=== PATIENT | female | born 1935 | race Hispanic/Latino ===

== ENCOUNTER 2017-02-09 20:54 | Observation (INO) | payer MEDICARE ==
--- NOTE | 2017-02-09 21:26 | C.PDOC ---
History Of Present Illness Camilo Perkins is an 81 year old female, with a past medical history of insulin dependent diabetes, who was brought to the emergency department by EMS after patient was feeling weak and dizzy onset prior to arrival. Patient reports not taking insulin, she was about to eat when she began feeling lightheaded and dizzy. Nephew was at her side. When EMS arrived her blood sugar was 36 mg/dl. She was given 1 amp of D50, upon arrival her blood sugar was 174 mg/dl. She was alert and oriented, and she remembers the event. She denies any chest pain, palpitations, visual changes, nausea or vomit. No further medical complaints. PMD: Simeon Pryor Time Seen by Provider: 02/09/17 21:25 Chief Complaint (Nursing): Medical Clearance History Per: Patient History/Exam Limitations: no limitations Onset/Duration Of Symptoms: Hrs (prior to arrival) Current Symptoms Are (Timing): Better Pain Scale Rating Of: 0 Past Medical History Reviewed: Historical Data, Nursing Documentation, Vital Signs Vital Signs: Last Vital Signs Temp 97.8 F 02/09/17 22:44 Pulse 65 02/10/17 01:30 Resp 15 02/10/17 01:30 BP 156/62 H 02/10/17 01:30 Pulse Ox 100 02/10/17 01:30 - Medical History PMH: Diabetes, Deep Vein Thrombosis, HTN, Hypercholesterolemia Denies: Chronic Kidney Disease Surgical History: CABG (10 yrs ago), Coronary Stent - [facility] Procedures VACCINATION NEC (08/11/13) Family History: States: Unknown Family Hx - Social History Hx Tobacco Use: No Hx Alcohol Use: No Hx Substance Use: No - Immunization History Hx Tetanus Toxoid Vaccination: No Hx Influenza Vaccination: Yes Hx Pneumococcal Vaccination: No Review Of Systems Eyes: Negative for: Vision Change Cardiovascular: Positive for: Light Headedness. Negative for: Chest Pain, Palpitations Respiratory: Negative for: Shortness of Breath Gastrointestinal: Negative for: Nausea, Vomiting Neurological: Positive for: Dizziness Physical Exam - Physical Exam Appears: Non-toxic Skin: Warm, Dry Head: Normacephalic Chest: Symmetrical Cardiovascular: Rhythm Regular Respiratory: No Rales, No Rhonchi, No Wheezing Gastrointestinal/Abdominal: Soft, Distention, Hernia (large reducible umbilical) Extremity: No Pedal Edema Neurological/Psych: Oriented x3, Normal Speech ED Course And Treatment - Laboratory Results Result Diagrams: 02/09/17 21:47 02/09/17 21:47 ECG: Interpreted By Me, Viewed By Me (60) ECG Rhythm: Sinus Rhythm (60), L BBB, Nonspecific Changes O2 Sat by Pulse Oximetry: 99 (RA) Pulse Ox Interpretation: Normal - Radiology CXR: Interpreted by Me, Viewed By Me Progress Note: Plan: --VBG Shock panel. --Comp Metabolic Panel. --Ketone, serum (Qual). --CBC w/ differential. --Urinalysis Disposition Discussed With Dr.: Juwan Crawford Comment: accepted the pt on his service and took over the care at 1:50 AM Doctor Will See Patient In The: Hospital Counseled Patient/Family Regarding: Studies Performed, Diagnosis - Disposition Disposition: HOSPITALIZED Disposition Time: 21:25 Condition: FAIR Forms: [employer] (Armenian) - POA Present On Arrival: Poor Glycemic Control - Clinical Impression Clinical Impression: Hypoglycemia - Scribe Statement Robert Pagan Provider Attestation: All medical record entries made by the Scribe were at my direction and personally dictated by me. I have reviewed the chart and agree that the record accurately reflects my personal performance of the history, physical exam, medical decision making, and the department course for this patient. I have also personally directed, reviewed, and agree with the discharge instructions and disposition. Decision To Admit - Pt Status Changed To: Hospital Disposition Of: Observation - . Bed Request Type: Regular Admitting Physician: Juwan Crawford Patient Diagnosis: Hypoglycemia
[2017-02-09 21:51] LABS: BASO # 0.1 K/uL (0.0-0.2); BASO % 0.8 % (0.0-2.0); EOS # 0.3 K/uL (0.0-0.7); EOS % 2.9 % (0.0-4.0); HEMATOCRIT 36.3 % (34.0-47.0); LYMPH # 1.9 K/uL (1.0-4.3); LYMPH % 21.8 % (20.0-40.0); MEAN CELL VOLUME 79.1 fL (81.0-99.0); MEAN CORPUSCULAR HGB CONC 32.9 g/dL (33.0-37.0); MONO # 0.7 K/uL (0.0-0.8); MONO % 8.4 % (0.0-10.0); RED CELL DISTRIBUTION WIDTH 14.4 % (11.5-14.5)
[2017-02-09 21:54] LABS: WHITE BLOOD COUNT 8.8 K/uL (4.8-10.8)
[2017-02-09 22:04] LABS: ALKALINE PHOSPHATASE 66 U/L (38-126); ALT/SGPT 45 U/L (9-52); AST/SGOT 45 U/L (14-36); BILIRUBIN,TOTAL 0.7 mg/dL (0.2-1.3); BLOOD UREA NITROGEN 24 mg/dL (7-17); CALCIUM 9.3 mg/dl (8.6-10.4); CARBON DIOXIDE 30 mmol/L (22-30); CHLORIDE 99 mmol/L (98-107); GFR AFRICAN-AMERICAN 40; GLUCOSE,RANDOM 164 mg/dL (65-105); POTASSIUM 3.6 mmol/L (3.6-5.2); SODIUM 139 mmol/L (132-148); TOTAL PROTEIN 8.6 g/dL (6.3-8.3)
[2017-02-09 22:07] LABS: VENOUS BLOOD GAS BASE EXCESS 4.4 mmol/L (0.0-2.0); VENOUS BLOOD GAS PCO2 52 mmHg (40-60); VENOUS BLOOD PH 7.38 (7.32-7.43)
[2017-02-09 22:09] LABS: RBC URINE 3 /hpf (0-3); URINE BACTERIA OCC (<OCC); URINE BILIRUBIN NEGATIVE (NEGATIVE); URINE BLOOD NEGATIVE (NEGATIVE); URINE COLOR Yellow (YELLOW); URINE GLUCOSE (UA) 3+ mg/dL (Normal); URINE KETONE NEGATIVE (NEGATIVE); URINE LEUKOCYTE ESTERASE 2+ Leu/uL (Negative); URINE PROTEIN 1+ mg/dL (NEGATIVE); URINE UROBILINOGEN NORMAL mg/dL (0.2-1.0); WBC URINE 12 /hpf (0-5)
[2017-02-10] MEDS ORDERED: Bacitracin Ointment 30 GM TUBE TOP STA (00:10)
[2017-02-10] MEDS ORDERED: Bacitracin 500 Units/gm Oint Foilpak UD ONE (00:11)
[2017-02-10 08:21] VITALS: RESP 20
[2017-02-10] MEDS: Enoxaparin 30 mg Syringe SC SCH (10:50)
--- NOTE | 2017-02-10 16:43 | CP.PCM.HP ---
Past Patient History - Infectious Disease Hx of Infectious Diseases: None - Past Medical History & Family History Past Medical History?: Yes - Past Social History Smoking Status: Never Smoked - CARDIAC Hx Hypercholesterolemia: Yes Hx Hypertension: Yes - PULMONARY Hx Respiratory Disorders: Yes Other/Comment: sinusitis - NEUROLOGICAL Hx Neurological Disorder: Yes Other/Comment: states has had weakness to left side 'for a month and a half' - HEENT Hx HEENT Problems: Yes Hx Cataracts: Yes - RENAL Hx Chronic Kidney Disease: No - ENDOCRINE/METABOLIC Hx Diabetes Mellitus Type 1: Yes Hx Diabetes Mellitus Type 2: Yes - HEMATOLOGICAL/ONCOLOGICAL Hx Blood Disorders: No - INTEGUMENTARY Hx Dermatological Problems: Yes - MUSCULOSKELETAL/RHEUMATOLOGICAL Hx Musculoskeletal Disorders: Yes Hx Falls: Yes - GASTROINTESTINAL Hx Gastrointestinal Disorders: No - GENITOURINARY/GYNECOLOGICAL Hx Genitourinary Disorders: No - PSYCHIATRIC Hx Substance Use: No - SURGICAL HISTORY Hx Coronary Artery Bypass Graft: Yes (10 yrs ago) Hx Coronary Stent: Yes - ANESTHESIA Hx Anesthesia: Yes Hx Anesthesia Reactions: No Hx Malignant Hyperthermia: No Meds Allergies/Adverse Reactions: Allergies Allergy/AdvReac Type Severity Reaction Status Date / Time Sulfa (Sulfonamide Allergy RASH Verified 02/09/17 21:18 Antibiotics) Physical Exam - Constitutional Appears: Well - Head Exam Head Exam: ATRAUMATIC, NORMAL INSPECTION, NORMOCEPHALIC - Eye Exam Eye Exam: EOMI, Normal appearance, PERRL Pupil Exam: NORMAL ACCOMODATION, PERRL - ENT Exam ENT Exam: Mucous Membranes Moist, Normal Exam - Neck Exam Neck exam: Positive for: Normal Inspection - Respiratory Exam Respiratory Exam: Decreased Breath Sounds - Cardiovascular Exam Cardiovascular Exam: REGULAR RHYTHM, +S1, +S2 - GI/Abdominal Exam GI & Abdominal Exam: Diminished Bowel Sounds, Soft - Rectal Exam Rectal Exam: Deferred Results - Vital Signs Recent Vital Signs: Last Vital Signs Temp 98.0 F 02/10/17 08:19 Pulse 70 02/10/17 08:19 Resp 20 02/10/17 08:19 BP 113/61 02/10/17 10:51 Pulse Ox 98 02/10/17 08:19 - Labs Result Diagrams: 02/09/17 21:47 02/09/17 21:47 Labs: Laboratory Results - last 24 hr 02/09/17 02/09/17 02/09/17 21:05 21:47 21:47 WBC 8.8 D RBC 4.60 Hgb 12.0 Hct 36.3 MCV 79.1 L MCH 26.0 L MCHC 32.9 L RDW 14.4 Plt Count 215 MPV 8.0 Neut % (Auto) 66.1 Lymph % (Auto) 21.8 [place] % (Auto) 8.4 Eos % (Auto) 2.9 Baso % (Auto) 0.8 Neut # 5.8 Lymph # 1.9 [place] # 0.7 Eos # 0.3 Baso # 0.1 pO2 VBG pH VBG pCO2 VBG HCO3 VBG Total CO2 VBG O2 Sat (Calc) VBG Base Excess VBG Potassium Glucose Lactate Sodium 139 Potassium 3.6 Chloride 99 Carbon Dioxide 30 Anion Gap 14 BUN 24 H Creatinine 1.5 H Est GFR ( Amer) 40 Est GFR (Non-Af Amer) 33 POC Glucose (mg/dL) 174 H Random Glucose 164 H Calcium 9.3 Total Bilirubin 0.7 AST 45 H ALT 45 Alkaline Phosphatase 66 Total Protein 8.6 H Albumin 4.3 Globulin 4.3 H Albumin/Globulin Ratio 1.0 Venous Blood Potassium Urine Color Urine Clarity Urine pH Ur Specific Nichols Urine Protein Urine Glucose (UA) Urine Ketones Urine Blood Urine Nitrate Urine Bilirubin Urine Urobilinogen Ur Leukocyte Esterase Urine WBC (Auto) Urine RBC (Auto) Ur Squamous Epith Cells Urine Bacteria Serum Ketones Negative 02/09/17 02/09/17 02/09/17 22:00 22:00 23:13 WBC RBC Hgb Hct MCV MCH MCHC RDW Plt Count MPV Neut % (Auto) Lymph % (Auto) [place] % (Auto) Eos % (Auto) Baso % (Auto) Neut # Lymph # [place] # Eos # Baso # pO2 19 L VBG pH 7.38 VBG pCO2 52 VBG HCO3 26.5 VBG Total CO2 32.4 H VBG O2 Sat (Calc) 29.5 L VBG Base Excess 4.4 H VBG Potassium 3.7 Glucose 152 H Lactate 0.9 Sodium 138.0 Potassium Chloride 103.0 Carbon Dioxide Anion Gap BUN Creatinine Est GFR ( Amer) Est GFR (Non-Af Amer) POC Glucose (mg/dL) 133 H Random Glucose Calcium Total Bilirubin AST ALT Alkaline Phosphatase Total Protein Albumin Globulin Albumin/Globulin Ratio Venous Blood Potassium 3.7 Urine Color Yellow Urine Clarity Hazy Urine pH 6.0 Ur Specific Nichols 1.005 Urine Protein 1+ H Urine Glucose (UA) 3+ H Urine Ketones Negative Urine Blood Negative Urine Nitrate Negative Urine Bilirubin Negative Urine Urobilinogen Normal Ur Leukocyte Esterase 2+ H Urine WBC (Auto) 12 H Urine RBC (Auto) 3 Ur Squamous Epith Cells 4 Urine Bacteria Occ H Serum Ketones 02/10/17 02/10/17 02/10/17 00:59 05:45 07:20 WBC RBC Hgb Hct MCV MCH MCHC RDW Plt Count MPV Neut % (Auto) Lymph % (Auto) [place] % (Auto) Eos % (Auto) Baso % (Auto) Neut # Lymph # [place] # Eos # Baso # pO2 VBG pH VBG pCO2 VBG HCO3 VBG Total CO2 VBG O2 Sat (Calc) VBG Base Excess VBG Potassium Glucose Lactate Sodium Potassium Chloride Carbon Dioxide Anion Gap BUN Creatinine Est GFR ( Amer) Est GFR (Non-Af Amer) POC Glucose (mg/dL) 110 197 H 175 H Random Glucose Calcium Total Bilirubin AST ALT Alkaline Phosphatase Total Protein Albumin Globulin Albumin/Globulin Ratio Venous Blood Potassium Urine Color Urine Clarity Urine pH Ur Specific Nichols Urine Protein Urine Glucose (UA) Urine Ketones Urine Blood Urine Nitrate Urine Bilirubin Urine Urobilinogen Ur Leukocyte Esterase Urine WBC (Auto) Urine RBC (Auto) Ur Squamous Epith Cells Urine Bacteria Serum Ketones 02/10/17 11:14 WBC RBC Hgb Hct MCV MCH MCHC RDW Plt Count MPV Neut % (Auto) Lymph % (Auto) [place] % (Auto) Eos % (Auto) Baso % (Auto) Neut # Lymph # [place] # Eos # Baso # pO2 VBG pH VBG pCO2 VBG HCO3 VBG Total CO2 VBG O2 Sat (Calc) VBG Base Excess VBG Potassium Glucose Lactate Sodium Potassium Chloride Carbon Dioxide Anion Gap BUN Creatinine Est GFR ( Amer) Est GFR (Non-Af Amer) POC Glucose (mg/dL) 183 H Random Glucose Calcium Total Bilirubin AST ALT Alkaline Phosphatase Total Protein Albumin Globulin Albumin/Globulin Ratio Venous Blood Potassium Urine Color Urine Clarity Urine pH Ur Specific Nichols Urine Protein Urine Glucose (UA) Urine Ketones Urine Blood Urine Nitrate Urine Bilirubin Urine Urobilinogen Ur Leukocyte Esterase Urine WBC (Auto) Urine RBC (Auto) Ur Squamous Epith Cells Urine Bacteria Serum Ketones
[2017-02-11 02:06] VITALS: TEMP 98
[2017-02-11 08:19] VITALS: BP 127/67; PULSE 78; O2SAT 98
[2017-02-11] MEDS: Enoxaparin 30 mg Syringe SC SCH (10:48)
--- NOTE | 2017-02-11 11:31 | CP.PCM.PN ---
Subjective - Date & Time of Evaluation Date of Evaluation: 02/11/17 Time of Evaluation: 11:30 - Subjective Subjective: PGY-[address] Crawford's service: Pt seen and examined at bedside. Nursing reports no acute events overnight. She reports feeling much better after being given D50 in the ED. She has been tolerating diet, and has no current complaints. She denies return of lightheadedness/dizziness. Patient sees Dr. Velasquez as outpatient and will follow up within one week's time. Patient is an 81 year old female, PMHx of insulin dependent diabetes, who was brought to the ED by EMS after patient was feeling weak and dizzy onset prior to arrival. Patient reports taking insulin late that AM because she overslept. She states she was about to eat when she began feeling lightheaded and dizzy. Family called 911. EMS at scene report blood sugar was 36 mg/dl. Patient has full memory of event and denies loss of consciousness, syncopal episode. She denies any chest pain, palpitations, visual changes, nausea or vomit. Objective - Vital Signs/Intake and Output Vital Signs (last 24 hours): Temp Pulse Resp BP Pulse Ox 98 F 78 20 127/67 98 02/11/17 08:18 02/11/17 08:18 02/11/17 08:18 02/11/17 10:48 02/11/17 08:18 Intake and Output: 02/11/17 02/11/17 06:59 18:59 Intake Total 200 Balance 200 - Medications Medications: Current Medications Amlodipine Besylate (Norvasc) 2.5 mg PO DAILY [facility] Last Admin: 02/11/17 10:49 Dose: Not Given Clopidogrel Bisulfate (Plavix) 75 mg PO DAILY [facility] Last Admin: 02/11/17 10:47 Dose: 75 mg Enoxaparin Sodium (Lovenox) 30 mg SC DAILY [facility] Last Admin: 02/11/17 10:48 Dose: 30 mg Famotidine (Pepcid) 20 mg PO DAILY [facility] Last Admin: 02/11/17 10:47 Dose: 20 mg Furosemide (Lasix) 40 mg PO DAILY [facility] Last Admin: 02/11/17 10:48 Dose: 40 mg Losartan Potassium (Cozaar) 100 mg PO DAILY [facility] Last Admin: 02/11/17 10:47 Dose: 100 mg Rosuvastatin Calcium (Crestor) 10 mg PO HS [facility] Last Admin: 02/10/17 21:50 Dose: 10 mg - Labs Labs: 02/09/17 21:47 02/09/17 21:47 - Constitutional Appears: Non-toxic, No Acute Distress - Head Exam Head Exam: ATRAUMATIC, NORMOCEPHALIC - Eye Exam Eye Exam: EOMI, Normal appearance. absent: Scleral icterus Pupil Exam: PERRL - ENT Exam ENT Exam: Mucous Membranes Moist - Neck Exam Neck Exam: Full ROM - Respiratory Exam Respiratory Exam: Clear to Ausculation Bilateral, NORMAL BREATHING PATTERN - Cardiovascular Exam Cardiovascular Exam: REGULAR RHYTHM, +S1, +S2. absent: Murmur - GI/Abdominal Exam GI & Abdominal Exam: Soft, Normal Bowel Sounds. absent: Distended, Firm, Tenderness Additional comments: umbilical hernia (reducible, no evidence of obstruction/strangulation, etc) - Extremities Exam Extremities Exam: Normal Inspection. absent: Pedal Edema - Back Exam Back Exam: absent: CVA tenderness (L), CVA tenderness (R) - Neurological Exam Neurological Exam: Alert, Awake, CN II-XII Intact, Oriented x3 Neuro motor strength exam: Left Upper Extremity: 5, Right Upper Extremity: 5, Left Lower Extremity: 5, Right Lower Extremity: 5 - Psychiatric Exam Psychiatric exam: Normal Affect, Normal Mood - Skin Skin Exam: Normal Color, Warm Assessment and Plan - Assessment and Plan (Free Text) Plan: Hypoglycemic Event Observe on med/surg EMS BG 36 at scene EKG: ~65 bpm, NSR, LBBB Negative for ketones, Lactate WNL, No signs of sepsis Pt reported lightheadedness/dizziness, denies syncopal event/losing consciousness - she admitted taking insulin late that day IDDM Continue home meds: Humalog 70/30 25 units QAM, 20 units QPM Metformin 500mg PO BID Januvia 50mg PO Daily Will ask pt to keep log of home Glucometer readings to bring to PMD Abnormal UA UA: 2+ LE Pt denies symptoms Hx CAD CABG 10 yrs prior Continue Plavix 75mg PO daily Continue home Cresotr 10mg PO Daily HTN Continue home meds: Norvasc 2.5mg PO daily Cozaar 100mg PO Daily Lasix 40mg PO daily Disposition: Discharge pt home. Pt will keep logs and see Dr. Velasquez in her office. Shamar Johnson PGY-2 All medical management per Dr. Crawford
== END 2017-02-11 14:49 | disposition home or self-care (01) ==
LOC: C.ER 20:54 → C.3T 02-10 02:39
PROVIDERS: ADMIT Internal Medicine Nephrology; ATTEND Internal Medicine Nephrology
DX: E11.649 Type 2 diabetes mellitus with hypoglycemia without coma (principal); E78.00 Pure hypercholesterolemia, unspecified; I10 Essential (primary) hypertension; Z79.4 Long term (current) use of insulin; Z95.1 Presence of aortocoronary bypass graft
CPT/HCPCS: 80053; 81001; 82009; 82803; 82948; 85025; 97116; 97162; 99285; G0378; J1650

== ENCOUNTER 2017-03-12 17:27 | Inpatient (IN) | payer MEDICARE ==
--- NOTE | 2017-03-12 19:03 | C.PDOC ---
History Of Present Illness 81 y/o female with dm and cardiac condition, s/p cabg yrs ago, presents to ed with right leg pain s/p falling down 2 steps yesterday. pt denies any cp, dizziness or lightheadedness prior to fall and did not hit head, no loc with fall. pt unable to bear weight on right leg. pain to entire leg. Time Seen by Provider: 03/12/17 18:14 Chief Complaint (Nursing): Lower Extremity Problem/Injury History Per: Patient History/Exam Limitations: no limitations Onset/Duration Of Symptoms: Days (1) Current Symptoms Are (Timing): Worse Severity: Moderate - Knee Description Of Injury: Fell Currently Unable To: Bear Weight - Ankle/Foot Description Of Injury: Fell Currently Unable To: Bear Weight Past Medical History Reviewed: Historical Data, Nursing Documentation, Vital Signs Vital Signs: Last Vital Signs Temp 99.2 F 03/14/17 08:38 Pulse 90 03/14/17 08:38 Resp 20 03/14/17 08:38 BP 117/69 03/14/17 09:40 Pulse Ox 97 03/14/17 08:38 - Medical History PMH: CAD, Diabetes, Deep Vein Thrombosis, HTN, Hypercholesterolemia Denies: Chronic Kidney Disease Surgical History: CABG (10 yrs ago), Coronary Stent - [facility] Procedures VACCINATION NEC (08/11/13) Family History: States: Unknown Family Hx - Social History Hx Tobacco Use: No Hx Alcohol Use: No Hx Substance Use: No - Immunization History Hx Tetanus Toxoid Vaccination: No Hx Influenza Vaccination: Yes Hx Pneumococcal Vaccination: No Review Of Systems Constitutional: Negative for: Fever, Chills Cardiovascular: Negative for: Chest Pain Respiratory: Negative for: Cough Musculoskeletal: Positive for: Leg Pain (right), Other (right hip pain) Skin: Negative for: Bruising Neurological: Negative for: Weakness, Numbness Physical Exam - Physical Exam Appears: Non-toxic, Other (uncomfortable) Skin: Warm, Dry Head: Atraumatic, Normacephalic Neck: No Midline Cervical Tenderness, Supple Chest: No Deformity, No Tenderness Cardiovascular: Rhythm Regular, Murmur (holosystolic, best heard left sternal border) Respiratory: No Decreased Breath Sounds, No Wheezing Gastrointestinal/Abdominal: Soft, No Tenderness Back: Paraspinal Tenderness (right ) Extremity: No Normal ROM (dec rom at knee and hip), Tenderness (to right hip, thigh, knee), No Calf Tenderness, Capillary Refill (less than 2 seconds), Other (right leg not foreshortened nor externally rotated) Extremity: Left: Hips Non-Tender Pulses: Right Radial: Normal, Left Femoral: Normal, Right Femoral: Normal, Left Dorsalis Pedis: Normal Neurological/Psych: Oriented x3, Normal Speech, Normal Cognition, Normal Motor, Normal Sensation ED Course And Treatment - Laboratory Results Result Diagrams: 03/14/17 07:51 03/14/17 07:51 O2 Sat by Pulse Oximetry: 99 Medical Decision Making Medical Decision Making: pt unwilling to move righ tleg, c/o pain all over right leg when touched.no acute fractures noted n xray or hip/pelvis, femur, or ankle. labs drawn. will send pt for ls spine and knee xrays as well. discussed with Dr Pryor, will admit pt to her service for unable to ambulate. Disposition Discussed With : Simeon Pryor - Disposition Disposition: HOSPITALIZED Disposition Time: 22:31 Condition: STABLE - Clinical Impression Clinical Impression: Leg pain, right, Unable to ambulate, Fall (on) (from) other stairs and steps, initial encounter, Dehydration
[2017-03-12 21:32] LABS: BASO # 0.1 K/uL (0.0-0.2); BASO % 0.7 % (0.0-2.0); EOS % 0.1 % (0.0-4.0); HEMOGLOBIN 11.5 g/dL (11.0-16.0); LYMPH # 2.1 K/uL (1.0-4.3); LYMPH % 18.5 % (20.0-40.0); MEAN CELL VOLUME 78.8 fL (81.0-99.0); MEAN CORPUSCULAR HEMOGLOBIN 25.6 pg (27.0-31.0); MEAN CORPUSCULAR HGB CONC 32.5 g/dL (33.0-37.0); MEAN PLATELET VOLUME 8.3 fL (7.2-11.7); MONO # 1.5 K/uL (0.0-0.8); MONO % 12.9 % (0.0-10.0); NEUT # 7.7 K/uL (1.8-7.0); NEUT % 67.8 % (50.0-75.0); RBC 4.51 Mil/uL (3.80-5.20); RED CELL DISTRIBUTION WIDTH 14.4 % (11.5-14.5); WHITE BLOOD COUNT 11.4 K/uL (4.8-10.8)
[2017-03-12 21:46] LABS: ALB/GLOB RATIO 1.1 (1.0-2.1)
[2017-03-12 22:19] VITALS: RESP 20
[2017-03-12] MEDS ORDERED: Sodium Chloride 0.9% 1,000 ML IV SCH (22:30)
[2017-03-12] MEDS ORDERED: Sodium Chloride 0.9% 1,000 ML ONE (22:53)
[2017-03-13 08:13] LABS: BASO % 0.6 % (0.0-2.0); EOS % 0.4 % (0.0-4.0); HEMOGLOBIN 10.5 g/dL (11.0-16.0); LYMPH # 2.1 K/uL (1.0-4.3); LYMPH % 24.8 % (20.0-40.0); MEAN CELL VOLUME 79.1 fL (81.0-99.0); MEAN CORPUSCULAR HEMOGLOBIN 26.1 pg (27.0-31.0); MEAN PLATELET VOLUME 8.7 fL (7.2-11.7); MONO # 1.4 K/uL (0.0-0.8); MONO % 16.8 % (0.0-10.0); NEUT # 4.9 K/uL (1.8-7.0); NEUT % 57.4 % (50.0-75.0); RBC 4.04 Mil/uL (3.80-5.20); RED CELL DISTRIBUTION WIDTH 14.6 % (11.5-14.5); WHITE BLOOD COUNT 8.4 K/uL (4.8-10.8)
[2017-03-13] MEDS: (Novolog) Insulin Aspart, Recombinant 100 u/ml 10 ml vial SC SCH ×4 (08:26→21:06)
[2017-03-13 08:27] LABS: SQUAMOUS EPITHIAL 1 /hpf (0-5); URINE BILIRUBIN NEGATIVE (NEGATIVE); URINE BLOOD NEGATIVE (NEGATIVE); URINE CLARITY Clear (Clear); URINE COLOR Yellow (YELLOW); URINE GLUCOSE (UA) 3+ mg/dL (Normal); URINE LEUKOCYTE ESTERASE TRACE Leu/uL (Negative); URINE NITRATE NEGATIVE (NEGATIVE); URINE PROTEIN NEGATIVE (NEGATIVE)
[2017-03-13 09:26] LABS: ALB/GLOB RATIO 1.1 (1.0-2.1); ALBUMIN 3.7 g/dL (3.5-5.0); CALCIUM 8.4 mg/dl (8.6-10.4)
--- NOTE | 2017-03-13 10:02 | CP.PCM.PN ---
Subjective - Date & Time of Evaluation Date of Evaluation: 03/13/17 - Subjective Subjective: H&P [facility] #[id number] Objective - Vital Signs/Intake and Output Vital Signs (last 24 hours): Temp Pulse Resp BP Pulse Ox 98.8 F 88 20 123/63 99 03/13/17 07:50 03/13/17 07:50 03/13/17 07:50 03/13/17 07:50 03/13/17 07:50 - Medications Medications: Current Medications Acetaminophen (Tylenol 325mg Tab) 650 mg PO Q6 PRN PRN Reason: Pain, moderate (4-7) Amlodipine Besylate (Norvasc) 2.5 mg PO DAILY [facility] Clopidogrel Bisulfate (Plavix) 75 mg PO DAILY [facility] Furosemide (Lasix) 40 mg PO DAILY [facility] Glipizide (Glucotrol) 10 mg PO DAILY [facility] Heparin Sodium (Porcine) (Heparin) 5,000 units SC Q12 [facility] Sodium Chloride (Sodium Chloride 0.9%) 1,000 mls @ 50 mls/hr IV .Q20H [facility] Last Admin: 03/12/17 22:58 Dose: 50 mls/hr Insulin Aspart (Novolog) 0 unit SC ACHS [facility] PRN Reason: Protocol Last Admin: 03/13/17 08:26 Dose: 3 unit Insulin Human Isoph/Insulin Regular (Novolin 70/30 (70/30 Units/Ml) 10 Ml) 20 units SC HS [facility] Insulin Human Isoph/Insulin Regular (Novolin 70/30 (70/30 Units/Ml) 10 Ml) 25 units SC QAM [facility] Losartan Potassium (Cozaar) 100 mg PO DAILY [facility] Morphine Sulfate (Morphine) 2 mg IVP Q6 PRN PRN Reason: Pain, severe (8-10) Last Admin: 03/13/17 06:34 Dose: 2 mg Pantoprazole Sodium (Protonix Ec Tab) 40 mg PO DAILY [facility] Rosuvastatin Calcium (Crestor) 10 mg PO DAILY [facility] Sitagliptin Phosphate (Januvia) 50 mg PO BID [facility] - Labs Labs: 03/13/17 08:06 03/13/17 08:06
[2017-03-13] MEDS: (Novolin 70/30) NPH/Regular 70/30 Units/ml 10 ml vial SC SCH ×2 (11:06→21:06)
[2017-03-13] MEDS: Pantoprazole 40 mg EC Tab PO SCH (11:08)
--- NOTE | 2017-03-13 11:19 | RAD ---
PROCEDURE: Bilateral Hips with Pelvis radiographs radiograph series HISTORY: fall and pain COMPARISON: No prior pelvis or hip radiographs available. TECHNIQUE: Frontal radiographs of the bilateral hips and pelvis been submitted for interpretation as well as frog-leg lateral views bilaterally. FINDINGS: Pelvic ring appears intact although advanced degenerative joint changes seen at the bilateral sacroiliac and hip joints. Pubic symphysis appears intact. Diffuse osteopenia suggests osteoporosis. Advanced degenerative disc disease seen the visualized inferior lumbar spine incidentally including facet arthropathy bilaterally. No subluxation or dislocation of the left or right hip joint is identified. No destructive bony lesion identified. Incidental calcified atherosclerosis appreciate throughout the visualized bilateral iliofemoral distribution. IMPRESSION: No definite acute fracture dislocation is identified throughout the bilateral hip joints and the pelvic ring. No subluxation of either hip joint is noted although degenerative changes appear advanced at the bilateral sacroiliac and hip joints as per above.
--- NOTE | 2017-03-13 11:22 | RAD ---
PROCEDURE: Right Femur Radiographs. HISTORY: fall and pain COMPARISON: None. TECHNIQUE: AP and Lateral Radiographs of the right femur. FINDINGS: FEMUR: No acute fracture or destructive bony lesion identified. Degenerative changes seen at the right knee and right hip joints. Vascular calcification at the medial thigh soft tissues extending into the popliteal fossa. SOFT TISSUES: As per above. OTHER FINDINGS: None. IMPRESSION: No acute fracture identified. Vascular calcifications seen in the thigh soft tissues extending into the popliteal fossa. Degenerative changes seen at the right hip and knee joints incidentally.
--- NOTE | 2017-03-13 11:28 | RAD ---
PROCEDURE: Right Ankle Radiographs. HISTORY: pain fall COMPARISON: Right ankle radiographs 10/03/2010. FINDINGS: BONES: No acute fracture or dislocation is identified. JOINTS: Extensive ligamentous calcifications seen at the medial greater than lateral ankle soft tissues inferiorly, suggestive of calcific tendinopathy. Clinically correlate further. Ankle mortise maintained. Talar dome intact SOFT TISSUES: As above. OTHER FINDINGS: None. 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 No fracture identified or dislocation.
[2017-03-13 11:50] LABS: INR 1.2
--- NOTE | 2017-03-13 18:53 | CP.PCM.CON ---
History of Present Illness - History of Present Illness History of Present Illness: pt is seen and examined , full consult is dictated #[id number] Past Patient History - Infectious Disease Hx of Infectious Diseases: None - Past Medical History & Family History Past Medical History?: Yes - Past Social History Smoking Status: Never Smoked - CARDIAC Hx Cardiac Disorders: Yes (CABG) Hx Hypercholesterolemia: Yes Hx Hypertension: Yes - PULMONARY Hx Respiratory Disorders: Yes Other/Comment: sinusitis - NEUROLOGICAL Hx Neurological Disorder: Yes Other/Comment: states has had weakness to left side 'for a month and a half' - HEENT Hx HEENT Problems: Yes Hx Cataracts: Yes - RENAL Hx Chronic Kidney Disease: No - ENDOCRINE/METABOLIC Hx Diabetes Mellitus Type 1: Yes Hx Diabetes Mellitus Type 2: Yes - HEMATOLOGICAL/ONCOLOGICAL Hx Blood Disorders: No - INTEGUMENTARY Hx Dermatological Problems: Yes - MUSCULOSKELETAL/RHEUMATOLOGICAL Hx Arthritis: Yes (L HIP; L WR/HAND) - GASTROINTESTINAL Hx Gastrointestinal Disorders: No - GENITOURINARY/GYNECOLOGICAL Hx Genitourinary Disorders: No - PSYCHIATRIC Hx Substance Use: No - SURGICAL HISTORY Hx Coronary Artery Bypass Graft: Yes (10 yrs ago) Hx Coronary Stent: Yes - ANESTHESIA Hx Anesthesia: Yes Hx Anesthesia Reactions: No Hx Malignant Hyperthermia: No Meds Allergies/Adverse Reactions: Allergies Allergy/AdvReac Type Severity Reaction Status Date / Time Sulfa (Sulfonamide Allergy RASH Verified 03/12/17 17:32 Antibiotics) - Medications Medications: Current Medications Acetaminophen (Tylenol 325mg Tab) 650 mg PO Q6 PRN PRN Reason: Pain, moderate (4-7) Amlodipine Besylate (Norvasc) 2.5 mg PO DAILY PENDING SALE TO [facility] Last Admin: 03/13/17 11:08 Dose: 2.5 mg Clopidogrel Bisulfate (Plavix) 75 mg PO DAILY PENDING SALE TO [facility] Last Admin: 03/13/17 11:08 Dose: 75 mg Furosemide (Lasix) 40 mg PO DAILY PENDING SALE TO [facility] Last Admin: 03/13/17 11:10 Dose: 40 mg Glipizide (Glucotrol) 10 mg PO DAILY PENDING SALE TO [facility] Last Admin: 03/13/17 11:08 Dose: 10 mg Heparin Sodium (Porcine) (Heparin) 5,000 units SC Q12 PENDING SALE TO [facility] Sodium Chloride (Sodium Chloride 0.9%) 1,000 mls @ 50 mls/hr IV .Q20H PENDING SALE TO [facility] Last Admin: 03/12/17 22:58 Dose: 50 mls/hr Insulin Aspart (Novolog) 0 unit SC ACHS PENDING SALE TO [facility] PRN Reason: Protocol Last Admin: 03/13/17 18:16 Dose: 2 unit Insulin Human Isoph/Insulin Regular (Novolin 70/30 (70/30 Units/Ml) 10 Ml) 20 units SC HS PENDING SALE TO [facility] Insulin Human Isoph/Insulin Regular (Novolin 70/30 (70/30 Units/Ml) 10 Ml) 25 units SC QAM PENDING SALE TO [facility] Last Admin: 03/13/17 11:06 Dose: 25 units Losartan Potassium (Cozaar) 100 mg PO DAILY PENDING SALE TO [facility] Last Admin: 03/13/17 11:08 Dose: 100 mg Morphine Sulfate (Morphine) 2 mg IVP Q4 PRN PRN Reason: Pain, severe (8-10) Last Admin: 03/13/17 16:06 Dose: 2 mg Pantoprazole Sodium (Protonix Ec Tab) 40 mg PO DAILY PENDING SALE TO [facility] Last Admin: 03/13/17 11:08 Dose: 40 mg Rosuvastatin Calcium (Crestor) 10 mg PO DAILY PENDING SALE TO [facility] Last Admin: 03/13/17 11:11 Dose: 10 mg Sitagliptin Phosphate (Januvia) 50 mg PO BID PENDING SALE TO [facility] Last Admin: 03/13/17 18:16 Dose: 50 mg Results - Vital Signs Recent Vital Signs: Last Vital Signs Temp 99.5 F 03/13/17 16:00 Pulse 87 03/13/17 16:00 Resp 20 03/13/17 16:00 BP 102/66 03/13/17 16:00 Pulse Ox 96 03/13/17 16:00 - Labs Result Diagrams: 03/13/17 08:06 03/13/17 08:06 Labs: Laboratory Results - last 24 hr 03/12/17 03/12/17 03/12/17 21:28 21:28 21:28 WBC 11.4 H D RBC 4.51 Hgb 11.5 Hct 35.5 MCV 78.8 L MCH 25.6 L MCHC 32.5 L RDW 14.4 Plt Count 201 MPV 8.3 Neut % (Auto) 67.8 Lymph % (Auto) 18.5 L [place] % (Auto) 12.9 H Eos % (Auto) 0.1 Baso % (Auto) 0.7 Neut # 7.7 H Lymph # 2.1 [place] # 1.5 H Eos # 0.0 Baso # 0.1 PT INR APTT Sodium 130 L Potassium 4.3 Chloride 96 L Carbon Dioxide 25 Anion Gap 13 BUN 21 H Creatinine 1.3 H Est GFR ( Amer) 48 Est GFR (Non-Af Amer) 39 POC Glucose (mg/dL) Random Glucose 195 H Hemoglobin A1c Calcium 9.0 Total Bilirubin 1.7 H AST 32 ALT 39 Alkaline Phosphatase 68 Total Protein 7.6 Albumin 4.0 Globulin 3.6 Albumin/Globulin Ratio 1.1 Triglycerides Cholesterol LDL Cholesterol Direct HDL Cholesterol TSH 3rd Generation Urine Color Yellow Urine Clarity Clear Urine pH 6.0 Ur Specific [place] 1.018 Urine Protein Negative Urine Glucose (UA) 3+ H Urine Ketones Negative Urine Blood Negative Urine Nitrate Negative Urine Bilirubin Negative Urine Urobilinogen 2.0 H Ur Leukocyte Esterase Trace Urine WBC (Auto) 4 Urine RBC (Auto) 2 Ur Squamous Epith Cells 1 03/13/17 03/13/17 03/13/17 07:31 08:06 08:06 WBC 8.4 RBC 4.04 Hgb 10.5 L Hct 32.0 L MCV 79.1 L MCH 26.1 L MCHC 33.0 RDW 14.6 H Plt Count 168 MPV 8.7 Neut % (Auto) 57.4 Lymph % (Auto) 24.8 [place] % (Auto) 16.8 H Eos % (Auto) 0.4 Baso % (Auto) 0.6 Neut # 4.9 Lymph # 2.1 [place] # 1.4 H Eos # 0.0 Baso # 0.0 PT INR APTT Sodium 129 L Potassium 4.4 Chloride 96 L Carbon Dioxide 26 Anion Gap 11 BUN 21 H Creatinine 1.3 H Est GFR ( Amer) 48 Est GFR (Non-Af Amer) 39 POC Glucose (mg/dL) 227 H Random Glucose 231 H Hemoglobin A1c Calcium 8.4 L Total Bilirubin 1.3 AST 50 H D ALT 41 Alkaline Phosphatase 62 Total Protein 7.1 Albumin 3.7 Globulin 3.4 Albumin/Globulin Ratio 1.1 Triglycerides 116 D Cholesterol 124 LDL Cholesterol Direct 39 HDL Cholesterol 50 TSH 3rd Generation 0.98 Urine Color Urine Clarity Urine pH Ur Specific [place] Urine Protein Urine Glucose (UA) Urine Ketones Urine Blood Urine Nitrate Urine Bilirubin Urine Urobilinogen Ur Leukocyte Esterase Urine WBC (Auto) Urine RBC (Auto) Ur Squamous Epith Cells 03/13/17 03/13/17 03/13/17 08:06 11:19 11:37 WBC RBC Hgb Hct MCV MCH MCHC RDW Plt Count MPV Neut % (Auto) Lymph % (Auto) [place] % (Auto) Eos % (Auto) Baso % (Auto) Neut # Lymph # [place] # Eos # Baso # PT 14.0 H INR 1.2 APTT 30 Sodium Potassium Chloride Carbon Dioxide Anion Gap BUN Creatinine Est GFR ( Amer) Est GFR (Non-Af Amer) POC Glucose (mg/dL) 254 H Random Glucose Hemoglobin A1c 8.7 H Calcium Total Bilirubin AST ALT Alkaline Phosphatase Total Protein Albumin Globulin Albumin/Globulin Ratio Triglycerides Cholesterol LDL Cholesterol Direct HDL Cholesterol TSH 3rd Generation Urine Color Urine Clarity Urine pH Ur Specific [place] Urine Protein Urine Glucose (UA) Urine Ketones Urine Blood Urine Nitrate Urine Bilirubin Urine Urobilinogen Ur Leukocyte Esterase Urine WBC (Auto) Urine RBC (Auto) Ur Squamous Epith Cells
[2017-03-13] MEDS: Sodium Chloride 0.9% 1,000 ML IV SCH (19:00)
[2017-03-13 20:40] LABS: URIC ACID 4.8 mg/dL (2.2-7.5)
--- NOTE | 2017-03-14 01:34 | HP ---
CHIEF COMPLAINT: Right-sided hip pain and leg pain, unable to ambulate status post fall on Saturday. HISTORY OF PRESENT ILLNESS: Ms. Perkins is an 81-year-old female with past medical history of CAD status post CABG status post stent placement, recent cardiac catheterization and stress test, hypertension, hyperlipidemia, diabetes mellitus, COPD, who is known to me for many years, came into the ED after she had sustained a fall and has been having right-sided hip and leg pain. As per the patient, on Saturday morning around 10:30, she was going down the steps, she slipped and missed two steps, falling face down on the right side. As soon as she fell, she was okay to ambulate but was having pain on the right side. She did not move much on Saturday, but on Saturday she woke up with severe pain in the right side. She was not able to move in her bed secondary to pain and she was brought into the emergency room. In the emergency room, patient had x-rays which were negative for fractures because patient is unable to ambulate. Patient is being admitted. When I examined, patient denied any headache, dizziness. Denied any chest pain, shortness of breath, or wheezing. Denied any dizziness. Denied any loss of consciousness. Denied any nausea, vomiting, abdominal pain, diarrhea, or constipation. Denied any urinary complaints. Denied any neurologic symptoms. PAST MEDICAL HISTORY: As described, CAD, CHF, COPD, hypertension, hyperlipidemia, diabetes mellitus. PAST SURGICAL HISTORY: Underwent CABG in 2004 and a stent placement in 2004, appendectomy, cholecystectomy, status post renal stent placement, and status post herniorrhaphy many years ago. FAMILY HISTORY: Coronary artery disease in sister and pancreatic CA in sister. PERSONAL HISTORY: She is not . Not having any children. Lives with a sister. 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 SOCIAL HISTORY: She is an ex-smoker, smoked one pack per month for 15 years, quit many years ago. Drinks alcohol socially. Denies any other drug abuse. ALLERGIES: SHE IS ALLERGIC TO SULFA DRUGS. CURRENT MEDICATIONS: Include Lasix 40 mg daily, Plavix 75 mg daily, Januvia 50 mg p.o. b.i.d., Crestor 10 mg p.o. daily, Protonix 40 mg daily, Norvasc 2.5 mg daily, losartan 100 mg daily, insulin 70/30 at 20 units subcu at bedtime and 25 units a.m., glipizide 10 mg p.o. daily. REVIEW OF SYSTEMS: As described in history of present illness. All other symptoms reviewed and were found to be negative. PHYSICAL EXAMINATION: GENERAL: Elderly female lying in bed, in no acute distress. VITAL SIGNS: Blood pressure 123/63, pulse 88, respirations 20, temperature 98.8 degrees Fahrenheit. O2 saturation 99% on 2 liters nasal cannula. HEENT: Pupils equal, round, reacting to light and accommodation. Extraocular muscles intact. No icterus. No pallor. No oral thrush. No pharyngeal congestion. No nasal congestion. NECK: Supple. No JVD. No thyromegaly. CHEST: Moving equally bilaterally on respiration. LUNGS: Bilateral vesicular breath sounds. No wheezing, no rhonchi. CARDIOVASCULAR SYSTEM: S1 and S2 present, regular. Systolic murmur heard. ABDOMEN: Soft, nontender, bowel sounds present. No guarding, no rigidity, no rebound tenderness noted. CENTRAL NERVOUS SYSTEM: Alert, awake, oriented x3. No focal deficits noted. EXTREMITIES: Right lower extremity, unable to move because of the pain, able to wiggle the toes to raise the leg at the hip joint, however, unable to bend the right knee. There is tenderness along the suprapubic region and the lateral part. Left leg, no limited movements, palpable peripheral pulses, warm to touch. LABORATORY DATA: Labs done from ED: WBC 11.4, hemoglobin 11.5, hematocrit 35.5, platelets 201. Sodium 130, potassium 4.3, chloride 96, bicarb 25, BUN 21, creatinine 1.3, glucose 227, calcium 9.0. Total bilirubin 1.7, AST 32, ALT 39, alkaline phosphatase 68, total protein 7.6, albumin 4.0. UA: Specific gravity 1.018, pH 6.0, glucose 3+, urobilinogen 2, wbc 4, rbc 2, otherwise negative. X-ray of the hip and pelvis, no definite acute fracture dislocation is identified. Degenerative changes, appear advanced at the bilateral sacroiliac and hip joints. Femur x-ray, no acute fracture identified. Vascular calcifications are seen in the thigh soft tissues extending into the popliteal fossa. Ankle x-ray, probable calcific tendinopathy in both medial and lateral malleolar soft tissue inferiorly. ASSESSMENT: An elderly female with history of coronary artery disease, congestive heart failure, status post coronary artery bypass graft, hypertension, hyperlipidemia, diabetes mellitus, chronic obstructive pulmonary disease, admitted status post fall with right-sided hip pain and leg pain. X-rays were negative, patient is unable to ambulate and patient is being admitted for further pain control. 1. Right hip pain and difficulty to ambulate. 2. Status post fall without any loss of consciousness, considered mechanical fall. 3. Hyponatremia, questionable etiology, patient is not on any diuretics, rule out secondary to pain, rule out other causes. 4. Chronic kidney disease. 5. Hypertension. 6. Hyperlipidemia. 7. Uncontrolled diabetes mellitus. 8. Coronary artery disease status post coronary artery bypass graft, status post stent placement, stable. 9. History of congestive heart failure, stable. 10. History of chronic obstructive pulmonary disease, stable. PLAN: Patient is being admitted to medical floor. We will give pain medication, morphine 2 mg q. 4 hours as needed, for control of the pain. We will request physical therapy evaluation. We will obtain right hip MRI to rule out any occult fractures. We will obtain orthopedic consultation. Patient is refusing subacute rehab placement at this time. We will adjust her pain medications as needed. Blood pressure is controlled, continue with current medication. We will obtain renal consult for hyponatremia; we will check urine lytes. Diabetes is uncontrolled; we will continue with her home medications of insulin, glipizide, and Januvia. We will continue with Crestor 10 mg daily, Lasix 40 mg daily, Plavix 75 mg p.o. daily. We will give heparin for DVT prophylaxis and Protonix for GI prophylaxis. We will add further recommendation as her clinical course progresses. Simeon Pryor MD
--- NOTE | 2017-03-14 05:21 | CON ---
DATE: 03/13/2017 RENAL CONSULTATION LOCATION: The patient is located in room 359, bed B. REQUESTED BY: Simeon Pryor MD. REASON FOR RENAL CONSULTATION: Hyponatremia and for further evaluation. HISTORY OF PRESENT ILLNESS: Mrs. Perkins is an 81-year-old elderly female with a past medical history significant for longstanding hypertension; diabetes; coronary artery disease, status post CABG about 11 years ago, status post coronary stent about a year ago; CHF, questionable and ex-smoker, who was admitted with chief complaints of the patient was complaining the weekend and subsequently the control equipment electrician came in on Saturday in the morning and the patient went down to check and she slipped and she fell on the stairs and complaining severe pain on the right side of the body and mostly in the right leg. Unable to ambulate, lying on the bed for the last 2 days. The patient was brought to the emergency room by the nephew for further evaluation. The patient was complaining severe pain in the right leg, unable to move and severe tenderness of whole leg and at the lower back. Denies any headache, dizziness. Denies any chest pain, palpitation. Denies any fever or cough. Denies any abdominal pain. Denies any nausea, vomiting, diarrhea. The patient was given analgesic in the emergency room. PAST MEDICAL HISTORY: Significant for longstanding hypertension, diabetes, coronary artery disease, hyperlipidemia, CHF. PAST SURGICAL HISTORY: Status post CABG about 11-12 years ago and status post cath and stent placement about a year ago, status post appendectomy, cholecystectomy and abdominal surgery. ALLERGIES: ALLERGIC TO SULFA. FAMILY HISTORY: Not significant. SOCIAL HISTORY: The patient was an ex-smoker, quit about 11 years ago. Social alcohol use. No drug abuse. PERSONAL HISTORY: She lives alone, but monitored by the patient's niece and nephews. MEDICATIONS: Her current medications include as follows; losartan 100 mg p.o. daily, Crestor 10 mg at bedtime, glipizide 10 mg daily and subcu heparin 5000 q. 12 hours, Januvia 50 mg daily b.i.d., Lasix 40 daily and morphine sulfate 2 mg IV q. 4 hours and insulin Humulin 70/30, Novolin 70/30 20 units subcu at bedtime and 25 units q.a.m., Novolog for sliding scale and Plavix 75 mg daily, Protonix 40 mg p.o. daily and sodium chloride, IV fluids at 70 mL/hour and Tylenol 650 mg p.o. q. 6 hours p.r.n. REVIEW OF SYSTEMS: Significant for status post mechanical fall in the house while going down the steps and pain in the right leg, difficult to ambulate. All other review of systems are reviewed and are negative. PHYSICAL EXAMINATION: Her vital signs and physical exam as follows; GENERAL: Mrs. Perkins is an 81-year-old elderly female, moderately built, moderately nourished, not in any distress. VITAL SIGNS: Blood pressure 102/66, pulse 87, respirations 20, temperature 99.5, saturation 96%. Height 5 feet and weight is 150 pounds, the BMI 29.3. HEENT: Pupils are normal and reactive to light and accommodation. Conjunctivae pink. Sclerae anicteric. Tongue is moist and trachea is midline. LUNGS: Symmetric on both sides. Bilateral breath sounds present. Clear on auscultation. CARDIOVASCULAR SYSTEM: [place] at the fifth intercostal space and midclavicular line. S1 and S2 audible. No gallop. The patient has a systolic murmur present. The patient has a midsternal scar present from the previous CABG. ABDOMEN: The patient has scar of right upper quadrant and also midline scar and also right paraumbilical scar present from the previous surgeries. Abdomen is soft, tympanic. No guarding. No rigidity. No hepatosplenomegaly. No abdominal bruits. CENTRAL NERVOUS SYSTEM: The patient is alert, awake, oriented x3. Sensorimotor system is grossly within normal limits. On the left side, the patient is able to move and raise the leg. On the left side, the patient is able to wiggle the toes slightly, but unable to move the right leg. Severe tenderness in the ankle and knee and also on the hip. No visible ecchymosis. The patient is refusing to roll over on the bed. LABORATORY DATA: Her laboratory data include as follows, as of 03/12/2017, WBC 11.4, hemoglobin 11.5, hematocrit is 35.5, MCV 78, platelets 201. Sodium 130, potassium 4.3, chloride 96, CO2 of 25, BUN 21, creatinine 1.3 and GFR is 39, glucose 195, calcium 9, total bili 1.7, AST 32, ALT 39, alkaline phosphatase 68, total protein 7.6, albumin is 4. Urinalysis yellow, clear, pH is 6 and specific gravity 1.018, protein negative, glucose 3+, ketones negative, blood negative, nitrites negative, bilirubin negative, urobilinogen 2.0, leukocyte esterase trace, wbc 4, rbc 2. As of 03/13/2017, WBC 8.4, hemoglobin 10.5, hematocrit is 32, MCV 79 and platelets 158. PT 14 and PTT 30. Sodium 129, potassium 4.4, chloride 96, CO2 of 26, BUN 21, creatinine 1.3, glucose 254, calcium 8.4, hemoglobin A1c 8.7, total bili 1.3, AST 50, ALT 41, alkaline phosphatase 62, total protein 7.1, albumin is 3.7 and cholesterol is 124 and LDL is 39, HDL 50, TSH is 0.98. Other laboratory data, x-ray of the hip as of 03/12/2017, no definite acute fracture dislocation is identified throughout the bilateral hip joint and the pelvic ring. No subluxation of either hip joint is noted, although degenerative changes appear advanced at the bilateral sacroiliac and hip joints. X-ray of the femur and ankle, no acute fracture identified, vascular calcification seen in the thigh soft tissue extending into the popliteal fossa, degenerative changes seen at the right hip and the knee joints incidentally. X-ray of the ankle as of 03/12/2017 at 1902 hours, consider probable calcific tendinopathy in both medial and lateral malleolar soft tissues inferiorly. No fracture identified or dislocation. MRI of the lower extremity report is pending. ASSESSMENT: In summary, Mrs. Perkins is an 81-year-old elderly female with a history of hypertension; diabetes; coronary artery disease, status post coronary artery bypass graft about 11 years ago, status post catheterization and stent about a year ago; hyperlipidemia; degenerative joint disease; who was admitted after she had a mechanical fall while she is going down the stairs on Saturday and unable to ambulate over the last 2 days and severe pain in the right leg. X-ray of the hip and femur, ankle was not consistent with any acute fracture at this time. Status post MRI of the lower extremity this afternoon with increased BUN and creatinine and low sodium. 1. Hyponatremia. Etiology is not clear. Rule out syndrome of inappropriate antidiuretic hormone secondary to severe pain. Rule out intravascular volume depletion and dehydration. 2. Hypertension. 3. Diabetes. 4. Right leg pain. Rule out hairline fracture. Rule out rhabdomyolysis. PLAN: Check urine sodium, potassium, urine chloride, osmolality, serum and urine osmolality. Also, we will check uric acid level, serum and also TSH as serum cortisol level in the a.m. and continue analgesics as per PMD. Continue morphine 2 mg IV q. 6 hours p.r.n. We will also check CPK level and we will give IV fluids normal saline at 70 mL/hour and repeat BMP in the a.m. We will follow with you. Thank you for allowing me to participate in your patient's care. Akua Pryor MD
[2017-03-14 07:58] LABS: BASO % 0.4 % (0.0-2.0); EOS # 0.3 K/uL (0.0-0.7); EOS % 2.9 % (0.0-4.0); HEMOGLOBIN 10.4 g/dL (11.0-16.0); LYMPH # 2.3 K/uL (1.0-4.3); LYMPH % 24.8 % (20.0-40.0); MEAN CELL VOLUME 79.9 fL (81.0-99.0); MEAN CORPUSCULAR HGB CONC 32.6 g/dL (33.0-37.0); MONO # 1.3 K/uL (0.0-0.8); MONO % 14.1 % (0.0-10.0); NEUT # 5.4 K/uL (1.8-7.0); NEUT % 57.8 % (50.0-75.0); RBC 3.98 Mil/uL (3.80-5.20); RED CELL DISTRIBUTION WIDTH 14.7 % (11.5-14.5); WHITE BLOOD COUNT 9.4 K/uL (4.8-10.8)
[2017-03-14] MEDS: (Novolog) Insulin Aspart, Recombinant 100 u/ml 10 ml vial SC SCH ×4 (08:04→21:40)
[2017-03-14 08:42] LABS: CALCIUM 8.3 mg/dl (8.6-10.4)
[2017-03-14] MEDS: Sodium Chloride 0.9% 1,000 ML IV SCH ×2 (09:37→23:54)
[2017-03-14] MEDS: Pantoprazole 40 mg EC Tab PO SCH (09:39)
[2017-03-14] MEDS: (Novolin 70/30) NPH/Regular 70/30 Units/ml 10 ml vial SC SCH ×2 (09:42→21:40)
--- NOTE | 2017-03-14 10:13 | MRI ---
MRI right hip History: Hip pain. Comparison: None available. Technique: Multi-echo multiplanar sequences were performed through the right knee without the use of intravenous contrast. Findings: Right hip: No evidence of acute displaced fracture or dislocation. Moderate narrowing at the superior aspect of the right hip joint space with cartilage thinning. Degenerative fraying and/or partial tearing of the right anterior acetabular labrum. Right iliopsoas tendon attachment appears preserved. Moderate right-sided hamstring origin tendinosis. Rectus femoris tendon attachment appears preserved. Partial tearing and or moderate grade sprain of the gluteus tendon attachments on the greater trochanter. Small right hip joint effusion. Limited evaluation of the left hip demonstrates a trace left hip joint effusion. In addition, there is moderate insertional tendinopathy of the left gluteus tendon attachments on the greater trochanter with adjacent fluid in the greater trochanteric bursa. Prominent degenerative changes are noted in the lower lumbar spine. Clinical correlation. Incidentally noted is a prominently distended urinary bladder. Impression: 1. Moderate narrowing at the superior aspect of the right hip joint space with cartilage thinning. 2. Degenerative fraying and/or partial tearing of the right anterior acetabular labrum. 3. Moderate right-sided hamstring origin tendinosis. 4. Partial tearing and or moderate grade sprain of the gluteus tendon attachments on the greater trochanter. 5. Small right hip joint effusion. 6. Limited evaluation of the left hip demonstrates a trace left hip joint effusion. In addition, there is moderate insertional tendinopathy of the left gluteus tendon attachments on the greater trochanter with adjacent fluid in the greater trochanteric bursa. 7. Prominent degenerative changes are noted in the lower lumbar spine. Clinical correlation.
--- NOTE | 2017-03-14 10:30 | CP.PCM.PN ---
Subjective - Date & Time of Evaluation Date of Evaluation: 03/14/17 Time of Evaluation: 10:25 - Subjective Subjective: 82F complains of severe right leg pain after fall 2 days ago. She says she was unable to get up by herself after the fall, and she is unable to walk due to right leg pain. She is unable to move herself in bed due to pain. She has never had pain this bad before. She says she can not move right leg at all because it hurts too much and her whole leg is numb. She had pain in left leg after fall but that has resolved. Patient points to outer right gluteal area when asked to localize pain. Denies groin pain. Objective - Vital Signs/Intake and Output Vital Signs (last 24 hours): Temp Pulse Resp BP Pulse Ox 99.2 F 90 20 117/69 97 03/14/17 08:38 03/14/17 08:38 03/14/17 08:38 03/14/17 09:40 03/14/17 08:38 Intake and Output: 03/14/17 03/14/17 06:59 18:59 Intake Total 1290 Output Total 700 Balance 590 - Medications Medications: Current Medications Acetaminophen (Tylenol 325mg Tab) 650 mg PO Q6 PRN PRN Reason: Pain, moderate (4-7) Amlodipine Besylate (Norvasc) 2.5 mg PO DAILY [facility] Last Admin: 03/14/17 09:39 Dose: 2.5 mg Clopidogrel Bisulfate (Plavix) 75 mg PO DAILY [facility] Last Admin: 03/14/17 09:40 Dose: 75 mg Furosemide (Lasix) 40 mg PO DAILY [facility] Last Admin: 03/14/17 09:40 Dose: 40 mg Glipizide (Glucotrol) 10 mg PO DAILY [facility] Last Admin: 03/14/17 09:39 Dose: 10 mg Heparin Sodium (Porcine) (Heparin) 5,000 units SC Q12 [facility] Last Admin: 03/14/17 09:40 Dose: 5,000 units Sodium Chloride (Sodium Chloride 0.9%) 1,000 mls @ 70 mls/hr IV .[id number] [facility] Stop: 03/15/17 18:55 Last Admin: 03/14/17 09:37 Dose: 70 mls/hr Insulin Aspart (Novolog) 0 unit SC ACHS [facility] PRN Reason: Protocol Last Admin: 03/14/17 08:04 Dose: Not Given Insulin Human Isoph/Insulin Regular (Novolin 70/30 (70/30 Units/Ml) 10 Ml) 20 units SC HS [facility] Last Admin: 03/13/17 21:06 Dose: 20 units Insulin Human Isoph/Insulin Regular (Novolin 70/30 (70/30 Units/Ml) 10 Ml) 25 units SC QAM [facility] Last Admin: 03/14/17 09:42 Dose: 25 units Losartan Potassium (Cozaar) 100 mg PO DAILY [facility] Last Admin: 03/14/17 09:40 Dose: 100 mg Morphine Sulfate (Morphine) 2 mg IVP Q4 PRN PRN Reason: Pain, severe (8-10) Last Admin: 03/14/17 09:41 Dose: 2 mg Pantoprazole Sodium (Protonix Ec Tab) 40 mg PO DAILY [facility] Last Admin: 03/14/17 09:39 Dose: 40 mg Rosuvastatin Calcium (Crestor) 10 mg PO DAILY [facility] Last Admin: 03/14/17 09:40 Dose: 10 mg Sitagliptin Phosphate (Januvia) 50 mg PO BID [facility] Last Admin: 03/14/17 09:39 Dose: 50 mg - Labs Labs: 03/14/17 07:51 03/14/17 07:51 PT 14.0 SECONDS (9.7-12.2) H 03/13/17 11:37 INR 1.2 03/13/17 11:37 APTT 30 SECONDS (21-34) 03/13/17 11:37 - Constitutional Appears: Well, No Acute Distress (NAD while lying supine, severe pain during exam) - Neurological Exam Neurological Exam: Alert, Awake, Oriented x3 Additional comments: LLE: 5/5 strength sensation intact patient refused to move right leg. With much prompting, can feel patient attempt PF of ankle and great toe extension. Will not attempt to flex knee or DF ankle, cries in pain with any light touch to entire RLE. Noted significant edema to entire RLE. patient does not tolerate any attempts at passive motion of ankle/knee/hip. She complains of pain with attempts where I am holding leg. Complains of pain with palpation of right side of back, no central bony tenderness of spinous processes. Difficult to asses patient due to patient can not tolerate exam +DP/PT pulses right calf swollen, tender (but generalized) she says her leg is numb, but reacts to light touch to entire RLE. Can not localize to any nerve or dermatome. No erythema. Skin intact, healed scars noted - Psychiatric Exam Psychiatric exam: Normal Affect, Normal Mood - Skin Skin Exam: Dry, Intact (well healed abrasions from prior fall in february per pt ), Normal Color, Warm Assessment and Plan (1) Swelling of right lower extremity Assessment & Plan: stat doppler R/o DVT MRI of hip does not show any fracture, there is tendinopathy but nothing that accounts for patients complaints unable to localize pain due to exam, and xrays of right hip/femur/ankle negative for fracture, will get knee and tib fib for completion due to fall as patient does point to outer thigh and lateral gluteal area when asked to localize pain and noted DJD of lumbar spine on xray, will order MRI lumbar spine PT/OT pain medication venodynes if dopplers negative patient encouraged to participate in PT as she needs to get out of bed d/w DR. Navarro, agrees with above Status: Acute (2) Fall (on) (from) other stairs and steps, initial encounter Status: Acute (3) Leg pain, right Status: Acute Radiology Interpretation - Radiology Interpretation #2 Interpretation: Patient Name / ID : BREEZY BEACH / [id number] Exam Date : 03/12/2017 19:07:53 ( Approved ) Study Comment : Sex / Age : F / 81Y Creator : Boris Stevens MD Dictator : Boris Stevens MD Angle Bender : Mine Deputy : Boris Stevens MD Approver2 : Report Date : 03/13/2017 11:18:02 My Comment : PROCEDURE: Bilateral Hips with Pelvis radiographs radiograph series HISTORY: fall and pain COMPARISON: No prior pelvis or hip radiographs available. TECHNIQUE: Frontal radiographs of the bilateral hips and pelvis been submitted for interpretation as well as frog-leg lateral views bilaterally. FINDINGS: Pelvic ring appears intact although advanced degenerative joint changes seen at the bilateral sacroiliac and hip joints. Pubic symphysis appears intact. Diffuse osteopenia suggests osteoporosis. Advanced degenerative disc disease seen the visualized inferior lumbar spine incidentally including facet arthropathy bilaterally. No subluxation or dislocation of the left or right hip joint is identified. No destructive bony lesion identified. Incidental calcified atherosclerosis appreciate throughout the visualized bilateral iliofemoral distribution. IMPRESSION: No definite acute fracture dislocation is identified throughout the bilateral hip joints and the pelvic ring. No subluxation of either hip joint is noted although degenerative changes appear advanced at the bilateral sacroiliac and hip joints as per above. Accession No. : [id number] Patient Name / ID : BREEZY BEACH / [id number] Exam Date : 03/12/2017 19:08:16 ( Approved ) Study Comment : Sex / Age : F / 81Y Creator : Boris Stevens MD Dictator : Boris Stevens MD Angle Bender : Mine Deputy : Boris Stevens MD Approver2 : Report Date : 03/13/2017 11:20:44 My Comment : PROCEDURE: Right Femur Radiographs. HISTORY: fall and pain COMPARISON: None. TECHNIQUE: AP and Lateral Radiographs of the right femur. FINDINGS: FEMUR: No acute fracture or destructive bony lesion identified. Degenerative changes seen at the right knee and right hip joints. Vascular calcification at the medial thigh soft tissues extending into the popliteal fossa. SOFT TISSUES: As per above. OTHER FINDINGS: None. IMPRESSION: No acute fracture identified. Vascular calcifications seen in the thigh soft tissues extending into the popliteal fossa. Degenerative changes seen at the right hip and knee joints incidentally. Accession No. : [id number] Patient Name / ID : BREEZY BEACH / [id number] Exam Date : 03/12/2017 19:08:42 ( Approved ) Study Comment : Sex / Age : F / 81Y Creator : Boris Stevens MD Dictator : Boris Stevens MD Angle Bender : Mine Deputy : Boris Stevens MD Approver2 : Report Date : 03/13/2017 11:26:21 My Comment : PROCEDURE: Right Ankle Radiographs. HISTORY: pain fall COMPARISON: Right ankle radiographs 10/03/2010. FINDINGS: BONES: No acute fracture or dislocation is identified. JOINTS: Extensive ligamentous calcifications seen at the medial greater than lateral ankle soft tissues inferiorly, suggestive of calcific tendinopathy. Clinically correlate further. Ankle mortise maintained. Talar dome intact SOFT TISSUES: As above. OTHER FINDINGS: None. 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 No fracture identified or dislocation. Patient Name / ID : BREEZY BEACH / [id number] Exam Date : 03/12/2017 22:30:16 ( Approved ) Study Comment : Sex / Age : F / 81Y Creator : Hilario Elkins MD Dictator : Hilario Elkins MD Angle Bender : Mine Deputy : Hilario Elkins MD Approver2 : Report Date : 03/13/2017 15:49:01 My Comment : PROCEDURE: Lumbar spine HISTORY: Trauma COMPARISON: None TECHNIQUE: Standard protocol for this study/examination. FINDINGS: Thoracolumbar scoliosis secondary degenerative changes primarily non marginal osteophyte formation and degenerative changes, disc space narrowing lower lumbar spine. Calcified nonaneurysmal abdominal aorta. IMPRESSION: No acute findings related to/accounting for the clinical presentation. Patient Name / ID : BREEZY BEACH / [id number] Exam Date : 03/13/2017 16:28:08 ( Approved ) Study Comment : Sex / Age : F / 82Y Creator : Faizan Mathews MD Dictator : Faizan Mathews MD Angle Bender : Mine Deputy : Faizan Mathews MD Approver2 : Report Date : 03/14/2017 10:07:00 My Comment : MRI right hip History: Hip pain. Comparison: None available. Technique: Multi-echo multiplanar sequences were performed through the right knee without the use of intravenous contrast. Findings: Right hip: No evidence of acute displaced fracture or dislocation. Moderate narrowing at the superior aspect of the right hip joint space with cartilage thinning. Degenerative fraying and/or partial tearing of the right anterior acetabular labrum. Right iliopsoas tendon attachment appears preserved. Moderate right-sided hamstring origin tendinosis. Rectus femoris tendon attachment appears preserved. Partial tearing and or moderate grade sprain of the gluteus tendon attachments on the greater trochanter. Small right hip joint effusion. Limited evaluation of the left hip demonstrates a trace left hip joint effusion. In addition, there is moderate insertional tendinopathy of the left gluteus tendon attachments on the greater trochanter with adjacent fluid in the greater trochanteric bursa. Prominent degenerative changes are noted in the lower lumbar spine. Clinical correlation. Incidentally noted is a prominently distended urinary bladder. Impression: 1. Moderate narrowing at the superior aspect of the right hip joint space with cartilage thinning. 2. Degenerative fraying and/or partial tearing of the right anterior acetabular labrum. 3. Moderate right-sided hamstring origin tendinosis. 4. Partial tearing and or moderate grade sprain of the gluteus tendon attachments on the greater trochanter. 5. Small right hip joint effusion. 6. Limited evaluation of the left hip demonstrates a trace left hip joint effusion. In addition, there is moderate insertional tendinopathy of the left gluteus tendon attachments on the greater trochanter with adjacent fluid in the greater trochanteric bursa. 7. Prominent degenerative changes are noted in the lower lumbar spine. Clinical correlation.
--- NOTE | 2017-03-14 11:29 | CP.PCM.PN ---
Subjective - Date & Time of Evaluation Date of Evaluation: 03/14/17 Time of Evaluation: 11:50 - Subjective Subjective: Progress note dictated #[id number] Objective - Vital Signs/Intake and Output Vital Signs (last 24 hours): Temp Pulse Resp BP Pulse Ox 99.2 F 90 20 117/69 97 03/14/17 08:38 03/14/17 08:38 03/14/17 08:38 03/14/17 09:40 03/14/17 08:38 Intake and Output: 03/14/17 03/14/17 06:59 18:59 Intake Total 1290 Output Total 700 Balance 590 - Medications Medications: Current Medications Acetaminophen (Tylenol 325mg Tab) 650 mg PO Q6 PRN PRN Reason: Pain, moderate (4-7) Amlodipine Besylate (Norvasc) 2.5 mg PO DAILY [facility] Last Admin: 03/14/17 09:39 Dose: 2.5 mg Clopidogrel Bisulfate (Plavix) 75 mg PO DAILY [facility] Last Admin: 03/14/17 09:40 Dose: 75 mg Furosemide (Lasix) 40 mg PO DAILY [facility] Last Admin: 03/14/17 09:40 Dose: 40 mg Glipizide (Glucotrol) 10 mg PO DAILY [facility] Last Admin: 03/14/17 09:39 Dose: 10 mg Heparin Sodium (Porcine) (Heparin) 5,000 units SC Q12 [facility] Last Admin: 03/14/17 09:40 Dose: 5,000 units Sodium Chloride (Sodium Chloride 0.9%) 1,000 mls @ 70 mls/hr IV .[id number] [facility] Stop: 03/15/17 18:55 Last Admin: 03/14/17 09:37 Dose: 70 mls/hr Insulin Aspart (Novolog) 0 unit SC ACHS [facility] PRN Reason: Protocol Last Admin: 03/14/17 08:04 Dose: Not Given Insulin Human Isoph/Insulin Regular (Novolin 70/30 (70/30 Units/Ml) 10 Ml) 20 units SC HS [facility] Last Admin: 03/13/17 21:06 Dose: 20 units Insulin Human Isoph/Insulin Regular (Novolin 70/30 (70/30 Units/Ml) 10 Ml) 25 units SC QAM [facility] Last Admin: 03/14/17 09:42 Dose: 25 units Losartan Potassium (Cozaar) 100 mg PO DAILY [facility] Last Admin: 03/14/17 09:40 Dose: 100 mg Morphine Sulfate (Morphine) 2 mg IVP Q4 PRN PRN Reason: Pain, severe (8-10) Last Admin: 03/14/17 09:41 Dose: 2 mg Pantoprazole Sodium (Protonix Ec Tab) 40 mg PO DAILY [facility] Last Admin: 03/14/17 09:39 Dose: 40 mg Rosuvastatin Calcium (Crestor) 10 mg PO DAILY [facility] Last Admin: 03/14/17 09:40 Dose: 10 mg Sitagliptin Phosphate (Januvia) 50 mg PO BID [facility] Last Admin: 03/14/17 09:39 Dose: 50 mg - Labs Labs: 03/14/17 07:51 03/14/17 07:51 PT 14.0 SECONDS (9.7-12.2) H 03/13/17 11:37 INR 1.2 03/13/17 11:37 APTT 30 SECONDS (21-34) 03/13/17 11:37
--- NOTE | 2017-03-14 13:32 | MRI ---
PROCEDURE: MR LUMBAR SPINE WITHOUT CONTRAST HISTORY: LBP, RLE pain COMPARISON: None available. TECHNIQUE: Multiecho multiplanar sequences were performed through the lumbar spine without the use of intravenous contrast. FINDINGS: The lumbar curvature is minimally interrupted by grade 1 spondylolisthesis of L4 anterior to L5 and is otherwise unremarkable. Marked disc height loss seen at L3-4 L4-5 with prominent facet joint degenerative changes appreciated at the inferior lumbar spine, the likely cause of the spondylolisthesis. Endplate degenerative changes are prominent at L3-4 L4-5 as well. Diffuse disc desiccation is appreciated with adequate hyper preservation exclusive of the levels noted above. The conus medullaris appears normal in intrinsic signal, terminating at L1 with the visualized prevertebral paraspinal soft tissues appear diffusely unremarkable. T12-L1: No disc herniation, spinal canal stenosis or neural foraminal narrowing. L1-2: No disc herniation is identified. There is a large generalized disc bulge appreciated combined with facet arthropathy to cause mild central canal stenosis, concentrated at the lateral recesses symmetrically. Mild bilateral neural foraminal stenosis identified. L2-3: No disc herniation identified. However, there is gross facet joint degenerative arthropathy combining with a mild generalized disc bulge resulting in a severe central canal stenosis. [id number] bilateral neural foraminal stenoses are identified. L3-4: No disc herniation identified however, a disc osteophyte complex is appreciated resulting in a moderate central canal stenosis greater the right than left sides due to limited scoliosis. Mildly prominent facet arthropathy is appreciated bilaterally, slightly greater at the right than left sides. L4-5: A mild circumferential disc osteophyte complex is appreciated inverting the ventral thecal sac and encroaching the lateral recesses without causing significant central canal stenosis. Facet arthropathy appears advanced bilaterally. No significant neural foraminal stenosis at this time. L5-S1: No disc herniation. Gross facet arthropathy is appreciate without significant stenosis. Mildly prominent epidural fat is encountered at this level with only minimal residual thecal sac identified. No significant neural foraminal stenosis. OTHER FINDINGS: None. IMPRESSION: Severe spinal stenosis appreciated on a degenerative basis at L2-3, moderate L3-4 and mild at L4-5 and L1-2. No definitive disc herniation throughout the examination.
--- NOTE | 2017-03-14 13:38 | VASCLAB ---
PROCEDURE: Bilateral Lower Extremity Venous Duplex Exam. HISTORY: Right leg swelling, r/o DVT PRIORS: None. TECHNIQUE: Bilateral common femoral, femoral, popliteal and posterior tibial, peroneal and great saphenous veins were evaluated. Flow was assessed with color Doppler, compressibility, assessment of phasic flow and augmentation response. Report prepared by KELLIE Alas FINDINGS: RIGHT: 1. Common Femoral Vein: 1.1. Compressibility - Fully compressible: Thrombus - None : Flow - Phasic: Augmentation -Normal: Reflux - None. 2. Femoral Vein: 2.1. Compressibility - Fully compressible: Thrombus - None : Flow - Phasic: Augmentation -Normal: Reflux - None. 3. Popliteal Vein: 3.1. Compressibility - n/a Thrombus - None : Flow - Phasic: Augmentation -Normal: Reflux - None. 4. Posterior Tibial Vein: 4.1. Compressibility - Fully compressible: Thrombus - None: Flow - Phasic: Augmentation -Normal: Reflux - None. 5. Peroneal Vein: 5.1. Compressibility - Fully compressible: Thrombus - None: Flow - Phasic: Augmentation -Normal: Reflux - None. 6. Great Saphenous Vein: 6.1. Compressibility - Fully compressible: Thrombus - None: Flow - Phasic: Augmentation - Normal: Reflux - None. LEFT: 1. Common Femoral Vein: 1.1. Compressibility - Fully compressible: Thrombus - None: Flow - Phasic: Augmentation -Normal: Reflux - None. 2. Femoral Vein: 2.1. Compressibility - Fully compressible: Thrombus - None: Flow - Phasic: Augmentation -Normal: Reflux - None. 3. Popliteal Vein: 3.1. Compressibility - Fully compressible: Thrombus - None : Flow - Phasic: Augmentation -Normal: Reflux - None. 4. Posterior Tibial Vein: 4.1. Compressibility - Fully compressible: Thrombus - None: Flow - Phasic: Augmentation -Normal: Reflux - None. 5. Peroneal Vein: 5.1. Compressibility - Fully compressible: Thrombus - None: Flow - Phasic: Augmentation -Normal: Reflux - None. 6. Great Saphenous Vein: 6.1. Compressibility - Fully compressible: Thrombus - None: Flow - Phasic: Augmentation - Normal: Reflux - None. OTHER FINDINGS: Right: Fluid collection is noted in the right popliteal fossa area, measuring 2.91 x 2.24 c.m.The right popliteal vein was analyzed with color fill and doppler only. Unable to assess compressibility due to patient intolerance to pain. Left: None significant. IMPRESSION: Right: No evidence of deep or superficial vein thrombosis of the right lower extremity. Normal valve function noted of the right side. Left: No evidence of deep or superficial vein thrombosis of the left lower extremity. Normal valve function noted of the left side.
--- NOTE | 2017-03-14 16:48 | RAD ---
PROCEDURE: Right Knee Radiographs. HISTORY: Posttraumatic right knee pain COMPARISON: None. FINDINGS: BONES: No acute fracture. Proliferative hypertrophic changes emanating from the femoral condyle and tibial plateau regions. JOINTS: Multi compartment degenerative changes primarily affecting medial and lateral compartment. Evidence chondrocalcinosis. JOINT EFFUSION: None. OTHER FINDINGS: None. IMPRESSION: No acute findings related to/accounting for the clinical presentation.
--- NOTE | 2017-03-14 16:51 | RAD ---
PROCEDURE: Radiographs of the right tibia and fibula. HISTORY: leg pain COMPARISON: None available. TECHNIQUE: Frontal and lateral views obtained. FINDINGS: BONES: The frontal central and lateral tibial plateau bone mineralization is indeterminate - trabecular microfractures-and/or prior subchondral sclerosis from prior insufficiency fractures are not excluded. No history of trauma provided. Clinical correlation with physical presentation is essential Findings are not reproduced on lateral views. Vascular calcifications project over this area. Chondrocalcinosis likely present. JOINT SPACES: Tricompartmental joint space narrowing OTHER FINDINGS: None. IMPRESSION: Indeterminate bone mineralization appearance frontal view central and lateral tibia - significance of this indeterminate no history of trauma provided. Artifact and/or prior nondisplaced insufficiency type trabecular microfractures are the diagnosis of exclusion. Clinical correlation is essential. Chondrocalcinosis. Tricompartmental joint space narrowing/osteoarthrosis lateral knee joint line spurring most notable. Arterial vascular calcification
--- NOTE | 2017-03-14 21:46 | PN ---
DATE: 03/14/2017 SUBJECTIVE: Patient was seen and examined at bedside. Patient is still complaining of severe pain in the lateral aspect of the thigh. Denies any new complaints. PHYSICAL EXAMINATION: GENERAL: Elderly female, lying in bed, in no acute distress. VITAL SIGNS: Blood pressure 130/53, pulse 87, respirations 20, temperature 99.9 degrees Fahrenheit. O2 saturation 99% on 2 liters nasal cannula. HEENT: Pupils equal, round, reacting to light and accommodation. Extraocular muscles intact. No icterus. No pallor. No oral thrush. No pharyngeal congestion. No nasal congestion. NECK: Supple. No JVD. No thyromegaly. CHEST: Moving equally bilaterally on respiration. LUNGS: Bilateral vesicular breath sounds. No wheezing, no rhonchi. CARDIOVASCULAR SYSTEM: S1 and S2 present, regular. Systolic murmur heard along the left sternal border. ABDOMEN: Soft, nontender, bowel sounds present. No guarding, no rigidity, no rebound tenderness noted. CENTRAL NERVOUS SYSTEM: Alert, awake, oriented x3. No focal deficits noted. EXTREMITIES: There is pain in the lateral aspect of the right gluteal region and unable to lift up the right lower extremity. Unable to get out of bed secondary to pain. Palpable peripheral pulses. MEDICATIONS: Include Tylenol 650 mg p.o. q. 6 hours p.r.n., amlodipine 2.5 mg p.o. daily, Plavix 75 mg p.o. daily, Lasix 40 mg p.o. daily, glipizide 10 mg p.o. daily, heparin 5000 unit subcutaneous q. 12 hours, NovoLog coverage 70/30 insulin 25 units in the morning and 20 units at night, losartan 100 mg p.o. daily, morphine 2 mg IV push q. 4 hours p.r.n. for pain, Protonix 40 mg p.o. daily, Crestor 10 mg daily, Januvia 50 mg daily, IV fluids, normal saline at 70 mL an hour. LABORATORY DATA: Labs from this morning, WBC 9.4, hemoglobin 10.4, hematocrit 31.9, platelets 166. Sodium 131, potassium 4.1, chloride 98, bicarb 25, BUN 24, creatinine 1.4, glucose 105, hemoglobin A1c 8.7, serum osmolality 297, uric acid 4.8, calcium 8.3. TSH 1.23, a.m. cortisol 13.2. LS spine MRI shows severe spinal stenosis at L2-L3, moderate at L3-L4, and mild at L4-L5. No definite disk herniation. Lower extremity Doppler negative for any DVT. MRI of the right hip shows moderate narrowing at the superior aspect of the right hip joint space with cartilage thinning, moderate right-sided hamstring origin tendinosis, partial tearing or moderate-grade sprain of the gluteus tendon attachments on the greater trochanter. Knee x-ray and tibiofibular x-rays, no acute fractures noted. ASSESSMENT AND PLAN: An elderly female with history of coronary artery disease, congestive heart failure, status post coronary artery bypass graft, hypertension, hyperlipidemia, diabetes mellitus, osteoarthritis, chronic obstructive pulmonary disease, admitted for right hip pain and inability to get out of bed, status post fall from stairs without any loss of consciousness and hyponatremia. Patient is still not able to get out of bed secondary to pain. Abnormal MRI of the right hip and lumbosacral spine, but no definitive fracture. We will continue with current pain medications. We will request physical therapy. Orthopedic consult appreciated. Patient is refusing to go to subacute rehab. Discussed with patient's nephew regarding discharge planning. We will follow up with Orthopedics for further treatment plan. Discussed with RN, case management, and social media project manager. Discussed with patient also at length regarding acute versus subacute rehab placement. Patient is refusing at this time. We will follow up with physical therapy services for reevaluation and see if patient can be discharged home in a.m. Simeon Pryor MD
--- NOTE | 2017-03-15 06:18 | CON ---
DATE: CONSULTATION REQUESTED BY: Dr. Pryor. HISTORY OF PRESENT ILLNESS: This is an 82-year-old female, came with a history of sustaining a fall two days prior to admission. She is complaining of severe pain in the right lower extremity, and she has difficulty in ambulating. She is admitted on 03/12/2017. PHYSICAL EXAMINATION: Revealed an 82-year-old female in acute distress. 2+ swelling of the entire lower extremity noted. Calf tenderness noted. Homans sign is negative. No palpable cords. Tenderness from L4-S1 noted. Bilateral tenderness noted. Range of motion of the back is severely painful. Tenderness also noted over the right greater trochanteric area. No tenderness in the right groin or right thigh noted. Also complaining of pain over the right calf, and the range of motion is extremely restricted in the right hip, right knee, and right ankle due to severity of the pain. The patient had multiple x-rays done and x-rays of the bilateral hips and pelvis, and x-rays of the right hip are negative for fractures or dislocations. X-rays of the right ankle reveal no evidence of fracture/dislocation and calcification of the soft tissues noted. X-rays of the lumbar spine revealed external evidence of a degenerative disc disease with narrowing of the intervertebral disc space at different levels, and she had an MRI of the right hip, which did not reveal any evidence of fracture/dislocation. DIAGNOSES: 1. Multiple contusions, fall with trochanteric bursitis and contusion. 2. Degenerative disc disease. 3. Lower extremity swelling. TREATMENT: 1. Treatment at this point is symptomatic. 2. We will gradually mobilize the patient with ambulation and weightbearing as tolerated. We will follow the patient. Nereida Navarro MD
[2017-03-15] MEDS: (Novolog) Insulin Aspart, Recombinant 100 u/ml 10 ml vial SC SCH ×4 (07:59→22:00)
[2017-03-15] MEDS: Pantoprazole 40 mg EC Tab PO SCH (09:24)
[2017-03-15] MEDS: (Novolin 70/30) NPH/Regular 70/30 Units/ml 10 ml vial SC SCH ×2 (09:26→22:00)
--- NOTE | 2017-03-15 11:30 | CP.PCM.PN ---
Subjective - Date & Time of Evaluation Date of Evaluation: 03/15/17 Time of Evaluation: 11:40 - Subjective Subjective: progress note dictated #[id number] Objective - Vital Signs/Intake and Output Vital Signs (last 24 hours): Temp Pulse Resp BP Pulse Ox 98.4 F 78 20 134/73 100 03/15/17 08:13 03/15/17 08:13 03/15/17 08:13 03/15/17 09:27 03/15/17 08:13 Intake and Output: 03/15/17 03/15/17 06:59 18:59 Intake Total 560 Balance 560 - Medications Medications: Current Medications Acetaminophen (Tylenol 325mg Tab) 650 mg PO Q6 PRN PRN Reason: Pain, moderate (4-7) Amlodipine Besylate (Norvasc) 2.5 mg PO DAILY [facility] Last Admin: 03/15/17 09:24 Dose: 2.5 mg Clopidogrel Bisulfate (Plavix) 75 mg PO DAILY [facility] Last Admin: 03/15/17 09:24 Dose: 75 mg Furosemide (Lasix) 40 mg PO DAILY [facility] Last Admin: 03/15/17 09:27 Dose: 40 mg Glipizide (Glucotrol) 10 mg PO DAILY [facility] Last Admin: 03/15/17 09:24 Dose: 10 mg Heparin Sodium (Porcine) (Heparin) 5,000 units SC Q12 [facility] Last Admin: 03/15/17 09:24 Dose: 5,000 units Sodium Chloride (Sodium Chloride 0.9%) 1,000 mls @ 70 mls/hr IV .[id number] [facility] Stop: 03/15/17 18:55 Last Admin: 03/14/17 23:54 Dose: Not Given Insulin Aspart (Novolog) 0 unit SC ACHS [facility] PRN Reason: Protocol Last Admin: 03/15/17 07:59 Dose: Not Given Insulin Human Isoph/Insulin Regular (Novolin 70/30 (70/30 Units/Ml) 10 Ml) 20 units SC HS [facility] Last Admin: 03/14/17 21:40 Dose: 20 units Insulin Human Isoph/Insulin Regular (Novolin 70/30 (70/30 Units/Ml) 10 Ml) 25 units SC QAM [facility] Last Admin: 03/15/17 09:26 Dose: 25 units Losartan Potassium (Cozaar) 100 mg PO DAILY [facility] Last Admin: 03/15/17 09:24 Dose: 100 mg Morphine Sulfate (Morphine) 2 mg IVP Q4 PRN PRN Reason: Pain, severe (8-10) Last Admin: 03/15/17 09:25 Dose: 2 mg Pantoprazole Sodium (Protonix Ec Tab) 40 mg PO DAILY [facility] Last Admin: 03/15/17 09:24 Dose: 40 mg Pneumococcal Polyvalent Vaccine (Pneumovax 23 Vaccine) 0.5 ml IM .ONCE ONE Stop: 03/16/17 10:01 Rosuvastatin Calcium (Crestor) 10 mg PO DAILY [facility] Last Admin: 03/15/17 09:23 Dose: 10 mg Sitagliptin Phosphate (Januvia) 50 mg PO DAILY [facility] Last Admin: 03/15/17 09:24 Dose: 50 mg - Labs Labs: 03/14/17 07:51 03/14/17 07:51 PT 14.0 SECONDS (9.7-12.2) H 03/13/17 11:37 INR 1.2 03/13/17 11:37 APTT 30 SECONDS (21-34) 03/13/17 11:37
--- NOTE | 2017-03-15 11:50 | RAD ---
PROCEDURE: Lumbar spine HISTORY: Trauma COMPARISON: None TECHNIQUE: Standard protocol for this study/examination. FINDINGS: Thoracolumbar scoliosis secondary degenerative changes primarily non marginal osteophyte formation and degenerative changes, disc space narrowing lower lumbar spine. Calcified nonaneurysmal abdominal aorta. IMPRESSION: No acute findings related to/accounting for the clinical presentation.
--- NOTE | 2017-03-15 11:58 | CP.PCM.PN ---
Subjective - Date & Time of Evaluation Date of Evaluation: 03/15/17 Time of Evaluation: 11:55 - Subjective Subjective: Patient still complaining of severe pain in right leg. Minimal participation in PT, encouraged. Objective - Vital Signs/Intake and Output Vital Signs (last 24 hours): Temp Pulse Resp BP Pulse Ox 98.4 F 78 20 134/73 100 03/15/17 08:13 03/15/17 08:13 03/15/17 08:13 03/15/17 09:27 03/15/17 08:13 Intake and Output: 03/15/17 03/15/17 06:59 18:59 Intake Total 560 Balance 560 - Medications Medications: Current Medications Acetaminophen (Tylenol 325mg Tab) 650 mg PO Q6 PRN PRN Reason: Pain, moderate (4-7) Amlodipine Besylate (Norvasc) 2.5 mg PO DAILY [facility] Last Admin: 03/15/17 09:24 Dose: 2.5 mg Clopidogrel Bisulfate (Plavix) 75 mg PO DAILY [facility] Last Admin: 03/15/17 09:24 Dose: 75 mg Furosemide (Lasix) 40 mg PO DAILY [facility] Last Admin: 03/15/17 09:27 Dose: 40 mg Glipizide (Glucotrol) 10 mg PO DAILY [facility] Last Admin: 03/15/17 09:24 Dose: 10 mg Heparin Sodium (Porcine) (Heparin) 5,000 units SC Q12 [facility] Last Admin: 03/15/17 09:24 Dose: 5,000 units Sodium Chloride (Sodium Chloride 0.9%) 1,000 mls @ 70 mls/hr IV .[id number] [facility] Stop: 03/15/17 18:55 Last Admin: 03/14/17 23:54 Dose: Not Given Insulin Aspart (Novolog) 0 unit SC ACHS [facility] PRN Reason: Protocol Last Admin: 03/15/17 07:59 Dose: Not Given Insulin Human Isoph/Insulin Regular (Novolin 70/30 (70/30 Units/Ml) 10 Ml) 20 units SC HS [facility] Last Admin: 03/14/17 21:40 Dose: 20 units Insulin Human Isoph/Insulin Regular (Novolin 70/30 (70/30 Units/Ml) 10 Ml) 25 units SC QAM [facility] Last Admin: 03/15/17 09:26 Dose: 25 units Losartan Potassium (Cozaar) 100 mg PO DAILY [facility] Last Admin: 03/15/17 09:24 Dose: 100 mg Morphine Sulfate (Morphine) 2 mg IVP Q4 PRN PRN Reason: Pain, severe (8-10) Last Admin: 03/15/17 09:25 Dose: 2 mg Pantoprazole Sodium (Protonix Ec Tab) 40 mg PO DAILY [facility] Last Admin: 03/15/17 09:24 Dose: 40 mg Pneumococcal Polyvalent Vaccine (Pneumovax 23 Vaccine) 0.5 ml IM .ONCE ONE Stop: 03/16/17 10:01 Rosuvastatin Calcium (Crestor) 10 mg PO DAILY [facility] Last Admin: 03/15/17 09:23 Dose: 10 mg Sitagliptin Phosphate (Januvia) 50 mg PO DAILY [facility] Last Admin: 03/15/17 09:24 Dose: 50 mg - Labs Labs: 03/14/17 07:51 03/14/17 07:51 PT 14.0 SECONDS (9.7-12.2) H 03/13/17 11:37 INR 1.2 03/13/17 11:37 APTT 30 SECONDS (21-34) 03/13/17 11:37 - Extremities Exam Additional comments: RLE: swelling improving slowly, but noted change from yesterday. Still refusing to actively move leg much. Encouraged. +DP/PT, right leg slighly less swollen Assessment and Plan (1) Swelling of right lower extremity Assessment & Plan: elevate PT/OT orthopedically stable per Dr. Navarro VTE proph Status: Acute (2) Fall (on) (from) other stairs and steps, initial encounter Status: Acute (3) Leg pain, right Status: Acute
[2017-03-15] MEDS: Sodium Chloride 0.9% 1,000 ML IV SCH ×2 (13:20→17:55)
[2017-03-15 14:14] LABS: CALCIUM 8.7 mg/dl (8.6-10.4)
--- NOTE | 2017-03-16 00:15 | PN ---
DATE: 03/15/2017 SUBJECTIVE: The patient was seen and examined at bedside this morning. The patient is still unable to get out of bed secondary to pain. Denies any new complaints. Denies any headache, dizziness. Denies any chest pain, shortness of breath or wheezing. Denies any urinary complaints. REVIEW OF SYSTEMS: All systems reviewed and found to be negative. PHYSICAL EXAMINATION: GENERAL: Elderly female lying in bed, in no acute distress. VITAL SIGNS: Blood pressure 134/74, pulse 78, respirations 20, temperature 98.4 degrees Fahrenheit, O2 sat 100% on 2 L nasal cannula. HEENT: Pupils equal, round, reacting to light and accommodation. Extraocular muscles intact. No icterus. No pallor. No oral thrush. No pharyngeal congestion. NECK: Supple. No JVD. LUNGS: Bilateral vesicular breath sounds. No wheezing. No rhonchi. CARDIOVASCULAR SYSTEM: S1 and S2 present, regular. Systolic murmur heard. ABDOMEN: Soft, nontender, bowel sounds present. No guarding, no rigidity, no rebound tenderness noted. CENTRAL NERVOUS SYSTEM: Alert, awake, oriented x3. No focal deficits noted. EXTREMITIES: Right lower extremity tenderness in the lateral aspect of the hip and unable to have any movement throughout the hip joint or at the knee joint. Unable to bend leg. MEDICATIONS: Include Tylenol as needed, amlodipine 2.5 mg daily, Plavix 75 mg p.o. daily, Lasix 40 mg p.o. daily, glipizide 10 mg p.o. daily, heparin 5000 units subcu q. 12 hours, insulin 70/30 25 units in the morning and 20 units at night time, losartan 100 mg p.o. daily, morphine 2 mg IV push q. 4 hours p.r.n., Protonix 40 mg daily, Crestor 10 mg daily, Januvia 50 mg p.o. daily. LABORATORY DATA: Labs from today, sodium 130, potassium 4.6, chloride 99, bicarbonate 25, BUN 22, creatinine 1.3, glucose 197, calcium 8.7. ASSESSMENT AND PLAN: Elderly female with history of coronary artery disease, congestive heart failure, status post coronary artery bypass grafting, hypertension, hyperlipidemia, diabetes mellitus, osteoarthritis, chronic obstructive pulmonary disease status post fall with right leg pain and unable to ambulate and get out of the bed with multiple contusions, degenerative joint disease and disc disease. We will continue with current pain medication. Orthopedic consult appreciated. The patient is refusing to go to subacute rehab, requested physical therapy revaluation, discussed with the patient's niece and the patient's nephew. Her sodium is still at 130. Blood pressure is stable. We will continue with other current medications. Discussed with case management and social security assessor. The patient after prolonged discussion would like to go to acute rehab at [facility] social security assessor. I was trying to get approval and prior authorization, awaiting for social security assessor clearance. Simeon Pryor MD
[2017-03-16] MEDS: (Novolog) Insulin Aspart, Recombinant 100 u/ml 10 ml vial SC SCH ×4 (08:08→21:21)
[2017-03-16] MEDS ORDERED: Pneumococcal 23-Valent Vaccine IM ONE (10:00)
[2017-03-16] MEDS ORDERED: Influenza Vaccine 60 mcg/0.5 mL SYR (4YR UP) IM ONE (10:00)
[2017-03-16] MEDS: Pantoprazole 40 mg EC Tab PO SCH (10:22)
[2017-03-16] MEDS: (Novolin 70/30) NPH/Regular 70/30 Units/ml 10 ml vial SC SCH ×2 (10:27→21:20)
--- NOTE | 2017-03-16 13:36 | CP.PCM.PN ---
Subjective - Date & Time of Evaluation Date of Evaluation: 03/16/17 Time of Evaluation: 13:30 - Subjective Subjective: Progress note dictated #[id number] Objective - Vital Signs/Intake and Output Vital Signs (last 24 hours): Temp Pulse Resp BP Pulse Ox 98.2 F 84 20 124/57 L 99 03/16/17 08:33 03/16/17 08:33 03/16/17 08:33 03/16/17 10:22 03/16/17 08:33 Intake and Output: 03/16/17 03/16/17 06:59 18:59 Intake Total 4110 Balance 4110 - Medications Medications: Current Medications Acetaminophen (Tylenol 325mg Tab) 650 mg PO Q6 PRN PRN Reason: Pain, moderate (4-7) Amlodipine Besylate (Norvasc) 2.5 mg PO DAILY [facility] Last Admin: 03/16/17 10:23 Dose: 2.5 mg Clopidogrel Bisulfate (Plavix) 75 mg PO DAILY [facility] Last Admin: 03/16/17 10:22 Dose: 75 mg Furosemide (Lasix) 40 mg PO DAILY [facility] Last Admin: 03/16/17 10:22 Dose: 40 mg Glipizide (Glucotrol) 10 mg PO DAILY [facility] Last Admin: 03/16/17 10:22 Dose: 10 mg Heparin Sodium (Porcine) (Heparin) 5,000 units SC Q12 [facility] Last Admin: 03/16/17 10:23 Dose: 5,000 units Insulin Aspart (Novolog) 0 unit SC ACHS [facility] PRN Reason: Protocol Last Admin: 03/16/17 12:28 Dose: 3 unit Insulin Human Isoph/Insulin Regular (Novolin 70/30 (70/30 Units/Ml) 10 Ml) 20 units SC HS [facility] Last Admin: 03/15/17 22:00 Dose: 20 units Insulin Human Isoph/Insulin Regular (Novolin 70/30 (70/30 Units/Ml) 10 Ml) 25 units SC QAM [facility] Last Admin: 03/16/17 10:27 Dose: 25 units Losartan Potassium (Cozaar) 100 mg PO DAILY [facility] Last Admin: 03/16/17 10:22 Dose: 100 mg Morphine Sulfate (Morphine) 2 mg IVP Q4 PRN PRN Reason: Pain, severe (8-10) Last Admin: 03/16/17 12:44 Dose: 2 mg Pantoprazole Sodium (Protonix Ec Tab) 40 mg PO DAILY [facility] Last Admin: 03/16/17 10:22 Dose: 40 mg Rosuvastatin Calcium (Crestor) 10 mg PO DAILY [facility] Last Admin: 03/16/17 10:22 Dose: 10 mg Sitagliptin Phosphate (Januvia) 50 mg PO DAILY [facility] Last Admin: 03/16/17 10:22 Dose: 50 mg - Labs Labs: 03/14/17 07:51 03/15/17 13:57 PT 14.0 SECONDS (9.7-12.2) H 03/13/17 11:37 INR 1.2 03/13/17 11:37 APTT 30 SECONDS (21-34) 03/13/17 11:37
--- NOTE | 2017-03-16 22:15 | PN ---
DATE: 03/16/2017 SUBJECTIVE: The patient was seen and examined at bedside. The patient is still complaining of right hip pain and leg pain, but able to sit in bed with assistance, but still not able to ambulate. Denies any new complaints. PHYSICAL EXAMINATION: GENERAL: Elderly female, in no acute distress. VITAL SIGNS: Blood pressure 124/57, pulse 84, respirations 20, temperature 98.2 degrees Fahrenheit, O2 sat 99% on room air. Intake is 1120. HEENT: Pupils equal, round, and reacting to light and accommodation. Extraocular muscles intact. No icterus, no pallor, no oral thrush, no pharyngeal congestion. NECK: Supple. No JVD. LUNGS: Bilateral vesicular breath sounds. No wheezing, no rhonchi. CARDIOVASCULAR SYSTEM: S1, S2 present, regular. ABDOMEN: Soft, nontender. Bowel sounds present. No guarding, no rigidity, no rebound tenderness noted. CENTRAL NERVOUS SYSTEM: Alert, awake, oriented x3. No focal deficits noted. EXTREMITIES: Right leg hip tenderness noted. Palpable peripheral pulses. Warm to touch. MEDICATIONS: Include Tylenol, Norvasc 2.5 p.o. daily, Plavix 75 mg p.o. daily, glipizide 10 mg p.o. b.i.d., NovoLog 70/30 25 units in the morning and 20 units at night, losartan 100 mg p.o. daily, morphine 2 mg IV push q. 4 hours p.r.n., Protonix 40 mg p.o. daily, Crestor 10 mg p.o. daily, Januvia 50 mg p.o. daily. Accu-Cheks 256, 250, 165, 258, 280. ASSESSMENT AND PLAN: Elderly female with history of hypertension, diabetes mellitus, hyperlipidemia, osteoarthritis, chronic obstructive pulmonary disease, coronary artery disease status post coronary artery bypass grafting, admitted for status post fall with right leg and hip pain with multiple contusions, difficulty ambulation, requiring assistance even for ADLs. We will continue with physical therapy for possible subacute rehab placement versus acute rehab placement, manager social responsibility, follow up for acute versus subacute rehab placement. Discussed with the patient's niece. Accu-Cheks are high, we will increase glipizide to 10 mg p.o. b.i.d. We will continue other current medications and we will repeat labs for followup of the sodium. We will hold Jd. Simeon Pryor MD
[2017-03-17 07:38] LABS: BASO % 0.6 % (0.0-2.0); EOS # 0.5 K/uL (0.0-0.7); EOS % 6.3 % (0.0-4.0); HEMOGLOBIN 9.5 g/dL (11.0-16.0); LYMPH # 1.8 K/uL (1.0-4.3); LYMPH % 24.2 % (20.0-40.0); MEAN CELL VOLUME 78.7 fL (81.0-99.0); MEAN CORPUSCULAR HEMOGLOBIN 26.6 pg (27.0-31.0); MEAN CORPUSCULAR HGB CONC 33.9 g/dL (33.0-37.0); MEAN PLATELET VOLUME 8.6 fL (7.2-11.7); MONO % 13.7 % (0.0-10.0); NEUT # 4.2 K/uL (1.8-7.0); NEUT % 55.2 % (50.0-75.0); RBC 3.56 Mil/uL (3.80-5.20); RED CELL DISTRIBUTION WIDTH 14.4 % (11.5-14.5); WHITE BLOOD COUNT 7.6 K/uL (4.8-10.8)
[2017-03-17 08:02] LABS: ALBUMIN 3.2 g/dL (3.5-5.0); CALCIUM 8.9 mg/dl (8.6-10.4)
[2017-03-17] MEDS: (Novolog) Insulin Aspart, Recombinant 100 u/ml 10 ml vial SC SCH ×4 (08:03→21:58)
[2017-03-17] MEDS: Pantoprazole 40 mg EC Tab PO SCH (09:34)
[2017-03-17] MEDS: (Novolin 70/30) NPH/Regular 70/30 Units/ml 10 ml vial SC SCH ×2 (09:35→22:00)
--- NOTE | 2017-03-17 16:42 | CP.PCM.PN ---
Subjective - Date & Time of Evaluation Date of Evaluation: 03/17/17 Time of Evaluation: 16:30 - Subjective Subjective: Progress note dictated #[id number] Objective - Vital Signs/Intake and Output Vital Signs (last 24 hours): Temp Pulse Resp BP Pulse Ox 98.4 F 74 20 138/73 99 03/17/17 15:24 03/17/17 15:24 03/17/17 15:24 03/17/17 15:24 03/17/17 15:24 Intake and Output: 03/17/17 03/17/17 06:59 18:59 Intake Total 425 500 Balance 425 500 - Medications Medications: Current Medications Acetaminophen (Tylenol 325mg Tab) 650 mg PO Q6 PRN PRN Reason: Pain, moderate (4-7) Amlodipine Besylate (Norvasc) 2.5 mg PO DAILY [facility] Last Admin: 03/17/17 09:34 Dose: 2.5 mg Clopidogrel Bisulfate (Plavix) 75 mg PO DAILY [facility] Last Admin: 03/17/17 09:34 Dose: 75 mg Glipizide (Glucotrol) 10 mg PO BID [facility] Last Admin: 03/17/17 09:33 Dose: 10 mg Insulin Aspart (Novolog) 0 unit SC ACHS [facility] PRN Reason: Protocol Last Admin: 03/17/17 12:01 Dose: 2 unit Insulin Human Isoph/Insulin Regular (Novolin 70/30 (70/30 Units/Ml) 10 Ml) 20 units SC HS [facility] Last Admin: 03/16/17 21:20 Dose: 20 units Insulin Human Isoph/Insulin Regular (Novolin 70/30 (70/30 Units/Ml) 10 Ml) 25 units SC QAM [facility] Last Admin: 03/17/17 09:35 Dose: 25 units Losartan Potassium (Cozaar) 100 mg PO DAILY [facility] Last Admin: 03/17/17 09:33 Dose: 100 mg Morphine Sulfate (Morphine) 2 mg IV Q4H PRN PRN Reason: Pain, severe (8-10) Pantoprazole Sodium (Protonix Ec Tab) 40 mg PO DAILY [facility] Last Admin: 03/17/17 09:34 Dose: 40 mg Rosuvastatin Calcium (Crestor) 10 mg PO DAILY [facility] Last Admin: 03/17/17 09:34 Dose: 10 mg Sitagliptin Phosphate (Januvia) 50 mg PO DAILY [facility] Last Admin: 03/17/17 09:33 Dose: 50 mg - Labs Labs: 03/17/17 07:22 03/17/17 07:22 PT 14.0 SECONDS (9.7-12.2) H 03/13/17 11:37 INR 1.2 03/13/17 11:37 APTT 30 SECONDS (21-34) 03/13/17 11:37
--- NOTE | 2017-03-17 17:56 | PN ---
DATE: 03/17/2017 SUBJECTIVE: The patient is seen and examined at bedside. The patient is still complaining of right lower extremity pain and inability to ambulate, severe pain even with minimal movements. Denies any other new symptoms. PHYSICAL EXAMINATION: GENERAL: Elderly female, lying in no acute distress. VITAL SIGNS: Blood pressure 138/73, pulse 74, respirations 20, temperature 98.4 degrees Fahrenheit, O2 saturations 99% on 2 L nasal cannula. HEENT: Pupils equal, round, reacting to light and accommodation. Extraocular muscles intact. No icterus. No pallor. No oral thrush. No pharyngeal congestion. NECK: Supple. No JVD. LUNGS: Bilateral vesicular breath sounds. No wheezing. No rhonchi. CARDIOVASCULAR SYSTEM: S1 and S2 present, regular. ABDOMEN: Soft, nontender. Bowel sounds present. No guarding. No rigidity. No rebound tenderness noted. CENTRAL NERVOUS SYSTEM: Alert, awake, oriented x3. No focal deficits noted. EXTREMITIES: Right lower extremity swelling present. Decreased movements. Tenderness in the right hip region and tenderness even to palpation and light touch. Palpable peripheral pulses. LABORATORY DATA: Labs from this morning, WBC 7.6, hemoglobin 9.5, hematocrit 28, platelets 181. Sodium 131, potassium 4.2, chloride 97, bicarb 27, BUN 27, creatinine 1.4. Glucose 190, 204, 230, 153, 308 and 280. Calcium 8.9, AST 42, ALT 44, alkaline phosphatase 122, total protein 6.6, albumin 3.2. MEDICATIONS: Include Tylenol 650 q. 6 p.r.n., Norvasc 2.5 mg daily, Plavix 75 mg daily, glipizide 10 mg p.o. b.i.d., Novolin 70/30 at 25 units in the morning and 20 units in the evening, Cozaar 100 mg p.o. daily, morphine 2 mg IV q. 4 hours p.r.n., Protonix 40 mg daily, Crestor 10 mg daily, Januvia 50 mg daily. ASSESSMENT AND PLAN: Elderly female with history of hypertension, diabetes mellitus, hyperlipidemia, osteoarthritis, coronary artery disease, congestive heart failure, status post coronary artery bypass graft, chronic obstructive pulmonary disease, status post fall, admitted for right lower extremity pain and swelling and multiple contusions. Unable to ambulate and get out of the bed secondary to severe pain. We will continue with physical therapy. Blood pressure is stable. Continue with current blood pressure medication. Sugars are uncontrolled. Glipizide increased to 10 b.i.d. yesterday. Monitor sugars closely. We will follow up with [facility] for subacute rehab versus acute rehab placement. Orthopedic followup appreciated. Simeon Pryor MD
[2017-03-18 06:38] LABS: BASO % 0.5 % (0.0-2.0); EOS # 0.5 K/uL (0.0-0.7); EOS % 6.4 % (0.0-4.0); HEMOGLOBIN 9.4 g/dL (11.0-16.0); LYMPH # 1.5 K/uL (1.0-4.3); LYMPH % 20.1 % (20.0-40.0); MEAN CELL VOLUME 78.5 fL (81.0-99.0); MEAN CORPUSCULAR HEMOGLOBIN 26.3 pg (27.0-31.0); MEAN CORPUSCULAR HGB CONC 33.5 g/dL (33.0-37.0); MEAN PLATELET VOLUME 8.4 fL (7.2-11.7); MONO % 12.9 % (0.0-10.0); NEUT # 4.6 K/uL (1.8-7.0); NEUT % 60.1 % (50.0-75.0); RBC 3.59 Mil/uL (3.80-5.20); RED CELL DISTRIBUTION WIDTH 14.3 % (11.5-14.5); WHITE BLOOD COUNT 7.6 K/uL (4.8-10.8)
[2017-03-18 06:50] LABS: CALCIUM 8.9 mg/dl (8.6-10.4)
[2017-03-18] MEDS: (Novolog) Insulin Aspart, Recombinant 100 u/ml 10 ml vial SC SCH ×4 (07:42→21:38)
[2017-03-18] MEDS: (Novolin 70/30) NPH/Regular 70/30 Units/ml 10 ml vial SC SCH ×2 (10:02→21:44)
[2017-03-18] MEDS: Pantoprazole 40 mg EC Tab PO SCH (10:02)
--- NOTE | 2017-03-18 11:46 | CP.PCM.PN ---
Subjective - Date & Time of Evaluation Date of Evaluation: 03/18/17 Time of Evaluation: 11:44 - Subjective Subjective: Patient still complaining of RLE pain. Encouraged rehab placement and PT participation. Objective - Vital Signs/Intake and Output Vital Signs (last 24 hours): Temp Pulse Resp BP Pulse Ox 98.2 F 75 20 138/75 100 03/18/17 07:34 03/18/17 07:34 03/18/17 07:34 03/18/17 07:34 03/18/17 07:34 Intake and Output: 03/18/17 03/18/17 06:59 18:59 Intake Total 400 Output Total 1000 Balance -600 - Medications Medications: Current Medications Acetaminophen (Tylenol 325mg Tab) 650 mg PO Q6 PRN PRN Reason: Pain, moderate (4-7) Amlodipine Besylate (Norvasc) 2.5 mg PO DAILY [facility] Last Admin: 03/18/17 10:02 Dose: 2.5 mg Clopidogrel Bisulfate (Plavix) 75 mg PO DAILY [facility] Last Admin: 03/18/17 10:02 Dose: 75 mg Clotrimazole (Lotrimin 1%) 0 gm TOP BID [facility] Glipizide (Glucotrol) 10 mg PO BID [facility] Last Admin: 03/18/17 10:01 Dose: 10 mg Insulin Aspart (Novolog) 0 unit SC ACHS [facility] PRN Reason: Protocol Last Admin: 03/18/17 07:42 Dose: Not Given Insulin Human Isoph/Insulin Regular (Novolin 70/30 (70/30 Units/Ml) 10 Ml) 20 units SC HS [facility] Last Admin: 03/17/17 22:00 Dose: 20 units Insulin Human Isoph/Insulin Regular (Novolin 70/30 (70/30 Units/Ml) 10 Ml) 25 units SC QAM [facility] Last Admin: 03/18/17 10:02 Dose: 25 units Losartan Potassium (Cozaar) 100 mg PO DAILY [facility] Last Admin: 03/18/17 10:02 Dose: 100 mg Morphine Sulfate (Morphine) 2 mg IV Q4H PRN PRN Reason: Pain, severe (8-10) Last Admin: 03/18/17 10:03 Dose: 2 mg Pantoprazole Sodium (Protonix Ec Tab) 40 mg PO DAILY [facility] Last Admin: 03/18/17 10:02 Dose: 40 mg Rosuvastatin Calcium (Crestor) 10 mg PO DAILY [facility] Last Admin: 03/18/17 10:02 Dose: 10 mg Sitagliptin Phosphate (Januvia) 50 mg PO DAILY [facility] Last Admin: 03/18/17 10:02 Dose: 50 mg - Labs Labs: 03/18/17 06:27 03/18/17 06:27 PT 14.0 SECONDS (9.7-12.2) H 03/13/17 11:37 INR 1.2 03/13/17 11:37 APTT 30 SECONDS (21-34) 03/13/17 11:37 - Extremities Exam Additional comments: Patient now at least attempts right knee ROM then complains of pain. Minimal attempt at ankle or toes ROM, but noted small amount DF ankle and ext toes. +DP/ PT pulses, leg still generally tender, but improved. Swelling improving. Calves soft neg homans Assessment and Plan (1) Swelling of right lower extremity Assessment & Plan: improving PT/OT, encourage participation and OOB will attempt single dose of toradol to improve pain control and around the clock tylenol recommended HERMANN to patient who is refusing d/w Dr. Navarro, agrees with above Status: Acute (2) Fall (on) (from) other stairs and steps, initial encounter Status: Acute (3) Leg pain, right Status: Acute
--- NOTE | 2017-03-18 11:48 | CP.PCM.PN ---
Subjective - Date & Time of Evaluation Date of Evaluation: 03/18/17 Time of Evaluation: 11:30 - Subjective Subjective: Progress note dictated #[id number] Objective - Vital Signs/Intake and Output Vital Signs (last 24 hours): Temp Pulse Resp BP Pulse Ox 98.2 F 75 20 138/75 100 03/18/17 07:34 03/18/17 07:34 03/18/17 07:34 03/18/17 07:34 03/18/17 07:34 Intake and Output: 03/18/17 03/18/17 06:59 18:59 Intake Total 400 Output Total 1000 Balance -600 - Medications Medications: Current Medications Acetaminophen (Tylenol 325mg Tab) 650 mg PO Q6 PRN PRN Reason: Pain, moderate (4-7) Amlodipine Besylate (Norvasc) 2.5 mg PO DAILY [facility] Last Admin: 03/18/17 10:02 Dose: 2.5 mg Clopidogrel Bisulfate (Plavix) 75 mg PO DAILY [facility] Last Admin: 03/18/17 10:02 Dose: 75 mg Clotrimazole (Lotrimin 1%) 0 gm TOP BID [facility] Glipizide (Glucotrol) 10 mg PO BID [facility] Last Admin: 03/18/17 10:01 Dose: 10 mg Insulin Aspart (Novolog) 0 unit SC ACHS [facility] PRN Reason: Protocol Last Admin: 03/18/17 07:42 Dose: Not Given Insulin Human Isoph/Insulin Regular (Novolin 70/30 (70/30 Units/Ml) 10 Ml) 20 units SC HS [facility] Last Admin: 03/17/17 22:00 Dose: 20 units Insulin Human Isoph/Insulin Regular (Novolin 70/30 (70/30 Units/Ml) 10 Ml) 25 units SC QAM [facility] Last Admin: 03/18/17 10:02 Dose: 25 units Ketorolac Tromethamine (Toradol) 30 mg IVP ONCE ONE Stop: 03/18/17 11:47 Losartan Potassium (Cozaar) 100 mg PO DAILY [facility] Last Admin: 03/18/17 10:02 Dose: 100 mg Morphine Sulfate (Morphine) 2 mg IV Q4H PRN PRN Reason: Pain, severe (8-10) Last Admin: 03/18/17 10:03 Dose: 2 mg Pantoprazole Sodium (Protonix Ec Tab) 40 mg PO DAILY [facility] Last Admin: 03/18/17 10:02 Dose: 40 mg Rosuvastatin Calcium (Crestor) 10 mg PO DAILY [facility] Last Admin: 03/18/17 10:02 Dose: 10 mg Sitagliptin Phosphate (Januvia) 50 mg PO DAILY [facility] Last Admin: 03/18/17 10:02 Dose: 50 mg - Labs Labs: 03/18/17 06:27 03/18/17 06:27 PT 14.0 SECONDS (9.7-12.2) H 03/13/17 11:37 INR 1.2 03/13/17 11:37 APTT 30 SECONDS (21-34) 03/13/17 11:37
[2017-03-18] MEDS: Clotrimazole 1% Cream(30 gm) TOP SCH ×2 (12:15→17:25)
--- NOTE | 2017-03-19 01:20 | PN ---
DATE: 03/18/2017 SUBJECTIVE: Patient is seen and examined at bedside. Patient participated in physical therapy, requiring assistance to get out of bed, complaining of severe pain in the right leg. She denies any new complaints. PHYSICAL EXAMINATION: GENERAL: Elderly female, lying in bed, in no acute distress. VITAL SIGNS: Blood pressure 114/63, pulse 75, respirations 20, temperature 97.5 degrees Fahrenheit, O2 sat is 99% on 2 L nasal cannula. HEENT: Pupils are equal, round, and reacting to light and accommodation. Extraocular muscles are intact. No icterus. No pallor. No oral thrush. No pharyngeal congestion. NECK: Supple. No JVD. No thyromegaly. CHEST: Moving equally bilaterally on respiration. LUNGS: Bilateral vesicular breath sounds. No wheezing. No rhonchi. CARDIOVASCULAR: S1 and S2 present, regular. ABDOMEN: Soft, nontender. Bowel sounds present. No guarding. No rigidity. No rebound tenderness noted. CENTRAL NERVOUS SYSTEM: Alert, awake, oriented x3. No focal deficits noted. EXTREMITIES: Right leg swelling improving. There is tenderness and paresthesias in the right leg. Palpable peripheral pulses, warm to touch. MEDICATIONS: Include, Tylenol as needed, Norvasc 2.5 mg p.o. daily, Plavix 75 mg p.o. daily, Glucotrol 10 mg p.o. b.i.d., NovoLog 70/30 at 25 units subcutaneous q.a.m. and 20 units subcutaneous at bedtime, losartan 100 mg daily, morphine 2 mg IV q. 4 hours p.r.n., Protonix 40 mg daily, Crestor 10 mg daily, Januvia 50 mg p.o. daily. LABORATORY DATA: From this morning, WBC 7.6, hemoglobin 9.4, hematocrit 28.2, platelets 199. Sodium 130, potassium 4.5, chloride 96, bicarbonate 28, BUN 26, creatinine 1.2, glucose 150, calcium 8.9. ASSESSMENT AND PLAN: An elderly female with coronary artery disease, congestive heart failure, status post coronary artery bypass graft, chronic obstructive pulmonary disease, osteoarthritis, hypertension, diabetes mellitus, hyperlipidemia, admitted for status post fall, right leg pain, right leg swelling, multiple contusions, unable to get out of bed without assistance. Patient is undergoing physical therapy. We will follow up with social media community manager for acute rehabilitation versus subacute rehabilitation placement. We will continue with current medications. Simeon Pryor MD
[2017-03-19] MEDS: (Novolog) Insulin Aspart, Recombinant 100 u/ml 10 ml vial SC SCH ×4 (08:03→21:32)
--- NOTE | 2017-03-19 10:55 | CP.PCM.PN ---
Subjective - Date & Time of Evaluation Date of Evaluation: 03/19/17 - Subjective Subjective: Progress note dictated #[id number] Objective - Vital Signs/Intake and Output Vital Signs (last 24 hours): Temp Pulse Resp BP Pulse Ox 97.4 F L 81 20 130/68 98 03/19/17 08:00 03/19/17 08:00 03/19/17 08:00 03/19/17 08:00 03/19/17 08:00 Intake and Output: 03/19/17 03/19/17 06:59 18:59 Intake Total 680 Balance 680 - Medications Medications: Current Medications Acetaminophen (Tylenol 325mg Tab) 650 mg PO Q6 PRN PRN Reason: Pain, moderate (4-7) Acetaminophen (Tylenol 325mg Tab) 975 mg PO Q8 [facility] Last Admin: 03/19/17 06:08 Dose: Not Given Amlodipine Besylate (Norvasc) 2.5 mg PO DAILY [facility] Last Admin: 03/18/17 10:02 Dose: 2.5 mg Clopidogrel Bisulfate (Plavix) 75 mg PO DAILY [facility] Last Admin: 03/18/17 10:02 Dose: 75 mg Clotrimazole (Lotrimin 1%) 0 gm TOP BID [facility] Last Admin: 03/18/17 17:25 Dose: 1 applic Glipizide (Glucotrol) 10 mg PO BID [facility] Last Admin: 03/18/17 17:24 Dose: 10 mg Heparin Sodium (Porcine) (Heparin) 5,000 units SC Q8 [facility] Last Admin: 03/19/17 06:02 Dose: 5,000 units Insulin Aspart (Novolog) 0 unit SC ACHS [facility] PRN Reason: Protocol Last Admin: 03/19/17 08:03 Dose: Not Given Insulin Human Isoph/Insulin Regular (Novolin 70/30 (70/30 Units/Ml) 10 Ml) 20 units SC HS [facility] Last Admin: 03/18/17 21:44 Dose: 20 units Insulin Human Isoph/Insulin Regular (Novolin 70/30 (70/30 Units/Ml) 10 Ml) 25 units SC QAM [facility] Last Admin: 03/18/17 10:02 Dose: 25 units Losartan Potassium (Cozaar) 100 mg PO DAILY [facility] Last Admin: 03/18/17 10:02 Dose: 100 mg Morphine Sulfate (Morphine) 2 mg IV Q4H PRN PRN Reason: Pain, severe (8-10) Last Admin: 03/19/17 08:41 Dose: 2 mg Pantoprazole Sodium (Protonix Ec Tab) 40 mg PO DAILY [facility] Last Admin: 03/18/17 10:02 Dose: 40 mg Rosuvastatin Calcium (Crestor) 10 mg PO DAILY [facility] Last Admin: 03/18/17 10:02 Dose: 10 mg Sitagliptin Phosphate (Januvia) 50 mg PO DAILY [facility] Last Admin: 03/18/17 10:02 Dose: 50 mg - Labs Labs: 03/18/17 06:27 03/18/17 06:27 PT 14.0 SECONDS (9.7-12.2) H 03/13/17 11:37 INR 1.2 03/13/17 11:37 APTT 34 SECONDS (21-34) 03/19/17 09:03
[2017-03-19] MEDS: Pantoprazole 40 mg EC Tab PO SCH (11:00)
[2017-03-19] MEDS: Clotrimazole 1% Cream(30 gm) TOP SCH ×2 (11:00→17:20)
[2017-03-19] MEDS: (Novolin 70/30) NPH/Regular 70/30 Units/ml 10 ml vial SC SCH ×2 (11:20→22:17)
--- NOTE | 2017-03-19 23:34 | PN ---
DATE: 03/19/2017 SUBJECTIVE: The patient was seen and examined at bedside. The patient is still complaining of right leg pain, unable to ambulate, complaining paresthesias and hyperesthesias. PHYSICAL EXAMINATION: GENERAL: On examination, elderly female, lying in bed in no acute distress. VITAL SIGNS: Blood pressure 130/68, pulse 81, respirations 20, temperature 97.4 degrees Fahrenheit, and O2 sat is 98% on room air. HEENT: Pupils are equal, round, and reacting to light and accommodation. Extraocular muscles are intact. No icterus. No pallor. No oral thrush. No pharyngeal congestion. NECK: Supple. No JVD. LUNGS: Bilateral vesicular breath sounds. No wheezing. No rhonchi. CARDIOVASCULAR: S1 and S2 present, regular. ABDOMEN: Soft and nontender. Bowel sounds are present. No guarding. No rigidity. No rebound tenderness noted. CENTRAL NERVOUS SYSTEM: Alert, awake, and oriented x3. No focal deficits noted. EXTREMITIES: Right leg swelling, decreased movements at the hip joint and hyperesthesias and tenderness along the left gluteal region and along the thigh and the ankle region, improving swelling. MEDICATIONS: Include Tylenol as needed, Norvasc 2.5 mg p.o. daily, Plavix 75 mg daily, Glucotrol 10 mg p.o. b.i.d., heparin 5000 units subcu q. 8 hours, insulin 70/30 - 25 units in the morning and 20 units at night, Cozaar 100 mg p.o. daily, morphine 2 mg IV q. 4 hours p.r.n., Protonix 40 mg daily, Crestor 10 mg daily, Januvia 50 mg p.o. daily. Accu-Cheks from this morning 162, 79, 247, 194, and 202. ASSESSMENT AND PLAN: Elderly female with coronary artery disease, congestive heart failure, status post coronary artery bypass grafting, chronic obstructive pulmonary disease, hypertension, hyperlipidemia, diabetes mellitus, osteoarthritis, status post fall with multiple contusions and right leg swelling, unable to ambulate secondary to severe pain. We will continue with current medication. The patient is participating in physical therapy. Discussed with case management and Last Repairer Helper. The patient is for possible acute versus subacute rehab placement when bed available. Simeon Pryor MD
[2017-03-20] MEDS: (Novolog) Insulin Aspart, Recombinant 100 u/ml 10 ml vial SC SCH ×4 (08:21→21:55)
--- NOTE | 2017-03-20 11:11 | CP.PCM.PN ---
Subjective - Date & Time of Evaluation Date of Evaluation: 03/20/17 - Subjective Subjective: Progress note dictated #[id number] Objective - Vital Signs/Intake and Output Vital Signs (last 24 hours): Temp Pulse Resp BP Pulse Ox 98.5 F 88 20 155/76 H 99 03/20/17 07:28 03/20/17 07:28 03/20/17 07:28 03/20/17 07:28 03/20/17 07:28 Intake and Output: 03/20/17 03/20/17 06:59 18:59 Intake Total 1090 Balance 1090 - Medications Medications: Current Medications Acetaminophen (Tylenol 325mg Tab) 650 mg PO Q6 PRN PRN Reason: Pain, moderate (4-7) Acetaminophen (Tylenol 325mg Tab) 975 mg PO Q8 [facility] Last Admin: 03/20/17 05:57 Dose: Not Given Amlodipine Besylate (Norvasc) 2.5 mg PO DAILY [facility] Last Admin: 03/19/17 11:00 Dose: 2.5 mg Clopidogrel Bisulfate (Plavix) 75 mg PO DAILY [facility] Last Admin: 03/19/17 11:00 Dose: 75 mg Clotrimazole (Lotrimin 1%) 0 gm TOP BID [facility] Last Admin: 03/19/17 17:20 Dose: 1 applic Glipizide (Glucotrol) 10 mg PO BID [facility] Last Admin: 03/19/17 17:19 Dose: 10 mg Heparin Sodium (Porcine) (Heparin) 5,000 units SC Q8 [facility] Last Admin: 03/20/17 05:56 Dose: 5,000 units Insulin Aspart (Novolog) 0 unit SC ACHS [facility] PRN Reason: Protocol Last Admin: 03/20/17 08:21 Dose: Not Given Insulin Human Isoph/Insulin Regular (Novolin 70/30 (70/30 Units/Ml) 10 Ml) 20 units SC HS [facility] Last Admin: 03/19/17 22:17 Dose: 20 units Insulin Human Isoph/Insulin Regular (Novolin 70/30 (70/30 Units/Ml) 10 Ml) 25 units SC QAM [facility] Last Admin: 03/19/17 11:20 Dose: 25 units Losartan Potassium (Cozaar) 100 mg PO DAILY [facility] Last Admin: 03/19/17 11:00 Dose: 100 mg Morphine Sulfate (Morphine) 2 mg IV Q4H PRN PRN Reason: Pain, severe (8-10) Last Admin: 03/20/17 08:56 Dose: 2 mg Pantoprazole Sodium (Protonix Ec Tab) 40 mg PO DAILY [facility] Last Admin: 03/19/17 11:00 Dose: 40 mg Rosuvastatin Calcium (Crestor) 10 mg PO DAILY [facility] Last Admin: 03/19/17 11:00 Dose: 10 mg Sitagliptin Phosphate (Januvia) 50 mg PO DAILY [facility] Last Admin: 03/19/17 11:20 Dose: 50 mg - Labs Labs: 03/18/17 06:27 03/18/17 06:27 PT 14.0 SECONDS (9.7-12.2) H 03/13/17 11:37 INR 1.2 03/13/17 11:37 APTT 34 SECONDS (21-34) 03/19/17 09:03
[2017-03-20] MEDS: Pantoprazole 40 mg EC Tab PO SCH (11:23)
[2017-03-20] MEDS: (Novolin 70/30) NPH/Regular 70/30 Units/ml 10 ml vial SC SCH ×2 (11:46→21:51)
[2017-03-20] MEDS: Clotrimazole 1% Cream(30 gm) TOP SCH ×2 (11:48→17:39)
[2017-03-20 13:48] LABS: BASO % 0.8 % (0.0-2.0); EOS # 0.5 K/uL (0.0-0.7); EOS % 9.2 % (0.0-4.0); HEMOGLOBIN 9.8 g/dL (11.0-16.0); LYMPH # 1.1 K/uL (1.0-4.3); LYMPH % 17.8 % (20.0-40.0); MEAN CELL VOLUME 79.4 fL (81.0-99.0); MEAN CORPUSCULAR HEMOGLOBIN 26.2 pg (27.0-31.0); MEAN PLATELET VOLUME 8.1 fL (7.2-11.7); MONO # 0.7 K/uL (0.0-0.8); MONO % 11.8 % (0.0-10.0); NEUT # 3.6 K/uL (1.8-7.0); NEUT % 60.4 % (50.0-75.0); NRBC % 0.1 % (0.0-2.0); RBC 3.73 Mil/uL (3.80-5.20); RED CELL DISTRIBUTION WIDTH 14.3 % (11.5-14.5); WHITE BLOOD COUNT 5.9 K/uL (4.8-10.8)
[2017-03-20 14:27] LABS: ALBUMIN 3.3 g/dL (3.5-5.0); CALCIUM 9.1 mg/dl (8.6-10.4)
--- NOTE | 2017-03-21 01:54 | PN ---
DATE: 03/20/2017 SUBJECTIVE: Patient was seen and examined at bedside. Patient is still complaining of right leg pain, not able to ambulate, unable to get out of bed on her own, requiring assistance from two people to get out of bed. Denies any new complaints. PHYSICAL EXAMINATION: GENERAL: Elderly female, lying in bed in no acute distress. VITAL SIGNS: Blood pressure 135/76, pulse 88, respirations 20, temperature 98.5 degrees Fahrenheit, O2 sat is 99% on 3 L nasal cannula. HEENT: Pupils are equal, round, and reacting to light and accommodation. Extraocular muscles are intact. No icterus. No pallor. No oral thrush. No pharyngeal congestion. NECK: Supple. No JVD. No thyromegaly. CHEST: Moving equally bilaterally on respiration. LUNGS: Bilateral vesicular breath sounds. No wheezing. No rhonchi. CARDIOVASCULAR SYSTEM: S1, S2 present. Regular. ABDOMEN: Soft, nontender. Bowel sounds present. No guarding. No rigidity. No rebound tenderness noted. CENTRAL NERVOUS SYSTEM: Alert, awake, oriented x3. No focal deficits noted. EXTREMITIES: Right leg swelling present, tenderness present, extremely limited movements around the hip joint and knee joint. Able to wiggle the toes, and palpable peripheral pulses. Foot is warm to touch. MEDICATIONS: Include Norvasc 2.5 mg daily, Plavix 75 mg p.o. daily, Glucotrol 10 p.o. b.i.d., heparin 5000 units subcutaneous q. 8 hours, 70/30 insulin 25 units subcutaneous q. a.m. and 20 units at night, Cozaar 100 mg daily, morphine 2 mg q. 4 hours as needed, Protonix 40 mg daily, Crestor 10 mg daily, Januvia 50 mg p.o. daily. LABORATORY DATA: From today, WBC 5.9, hemoglobin 9.8, hematocrit 29.6, platelets 236. Sodium 131, potassium 5.0, chloride 96, bicarb 28, BUN 25, creatinine 1.1, glucose 214, calcium 9.1. AST 126, ALT 111, alkaline phosphatase 248, total protein 6.6, albumin 3.3. ASSESSMENT AND PLAN: Elderly female with coronary artery disease, congestive heart failure, status post coronary artery bypass graft, hypertension, hyperlipidemia, diabetes mellitus, osteoarthritis, status post fall with right leg pain, multiple contusions, unable to ambulate secondary to pain, refusing to go to subacute rehab. Discussed with case management and social media specialist. I left message with patient's niece. Supervisor [employer] to try to contact Transitional Care Unit for possible admission. Patient is adamantly refusing to go to subacute rehab placement. Discussed with patient at length, explaining her that it is unsafe to discharge if she wants to go back home, as she does not have any support. She does not have anybody at home to help her with her activities of daily living. We will follow up with Supervisor [employer] regarding Transitional Care Unit placement. We will continue with current medication. Her hemoglobin and hematocrit remained stable. Still persistent mild hyponatremia. We will monitor the electrolytes. Simeon Pryor MD
[2017-03-21] MEDS: (Novolog) Insulin Aspart, Recombinant 100 u/ml 10 ml vial SC SCH ×4 (08:53→21:39)
[2017-03-21] MEDS: Pantoprazole 40 mg EC Tab PO SCH (10:13)
[2017-03-21] MEDS: (Novolin 70/30) NPH/Regular 70/30 Units/ml 10 ml vial SC SCH ×2 (10:21→21:58)
[2017-03-21] MEDS: Clotrimazole 1% Cream(30 gm) TOP SCH ×2 (10:22→18:41)
--- NOTE | 2017-03-21 10:54 | CP.PCM.PN ---
Subjective - Date & Time of Evaluation Date of Evaluation: 03/21/17 Time of Evaluation: 10:30 - Subjective Subjective: Progress note dictated #[id number] Objective - Vital Signs/Intake and Output Vital Signs (last 24 hours): Temp Pulse Resp BP Pulse Ox 98.1 F 101 H 20 120/74 97 03/21/17 08:04 03/21/17 08:04 03/21/17 08:04 03/21/17 08:04 03/21/17 08:04 Intake and Output: 03/21/17 03/21/17 06:59 18:59 Intake Total 740 Balance 740 - Medications Medications: Current Medications Acetaminophen (Tylenol 325mg Tab) 650 mg PO Q6 PRN PRN Reason: Pain, moderate (4-7) Acetaminophen (Tylenol 325mg Tab) 975 mg PO Q8 [facility] Last Admin: 03/21/17 05:39 Dose: Not Given Amlodipine Besylate (Norvasc) 2.5 mg PO DAILY [facility] Last Admin: 03/21/17 10:21 Dose: 2.5 mg Clopidogrel Bisulfate (Plavix) 75 mg PO DAILY [facility] Last Admin: 03/21/17 10:14 Dose: 75 mg Clotrimazole (Lotrimin 1%) 0 gm TOP BID [facility] Last Admin: 03/21/17 10:22 Dose: 1 applic Glipizide (Glucotrol) 10 mg PO BID [facility] Last Admin: 03/21/17 10:14 Dose: Not Given Heparin Sodium (Porcine) (Heparin) 5,000 units SC Q8 [facility] Last Admin: 03/21/17 05:36 Dose: 5,000 units Insulin Aspart (Novolog) 0 unit SC ACHS [facility] PRN Reason: Protocol Last Admin: 03/21/17 08:53 Dose: Not Given Insulin Human Isoph/Insulin Regular (Novolin 70/30 (70/30 Units/Ml) 10 Ml) 20 units SC HS [facility] Last Admin: 03/20/17 21:51 Dose: 20 units Insulin Human Isoph/Insulin Regular (Novolin 70/30 (70/30 Units/Ml) 10 Ml) 25 units SC QAM [facility] Last Admin: 03/21/17 10:21 Dose: Not Given Losartan Potassium (Cozaar) 100 mg PO DAILY [facility] Last Admin: 03/21/17 10:13 Dose: 100 mg Morphine Sulfate (Morphine) 2 mg IV Q4H PRN PRN Reason: Pain, severe (8-10) Last Admin: 03/21/17 08:10 Dose: 2 mg Pantoprazole Sodium (Protonix Ec Tab) 40 mg PO DAILY [facility] Last Admin: 03/21/17 10:13 Dose: 40 mg Rosuvastatin Calcium (Crestor) 10 mg PO HS [facility] Sitagliptin Phosphate (Januvia) 50 mg PO DAILY [facility] Last Admin: 03/21/17 10:13 Dose: Not Given - Labs Labs: 03/20/17 13:42 03/20/17 13:42 PT 14.0 SECONDS (9.7-12.2) H 03/13/17 11:37 INR 1.2 03/13/17 11:37 APTT 34 SECONDS (21-34) 03/19/17 09:03
--- NOTE | 2017-03-21 14:57 | CP.PCM.PN ---
Subjective - Date & Time of Evaluation Date of Evaluation: 03/21/17 Time of Evaluation: 14:55 - Subjective Subjective: Patient says she still has a lot of pain, ut she is able to move a littel better. She is still refusing rehab. Denies CP/SOB/dizziness. Review of Systems - Review of Systems All systems: reviewed and no additional remarkable complaints except - Cardiovascular Cardiovascular: UNREMARKABLE - Respiratory Respiratory: UNREMARKABLE - Gastrointestinal Gastrointestinal: UNREMARKABLE - Musculoskeletal Musculoskeletal: As Par HPI - Integumentary Integumentary: UNREMARKABLE - Neurological Neurological: UNREMARKABLE - Hematologic/Lymphatic Hematologic: UNREMARKABLE Objective - Vital Signs/Intake and Output Vital Signs (last 24 hours): Temp Pulse Resp BP Pulse Ox 98.1 F 95 H 20 145/64 97 03/21/17 08:04 03/21/17 14:15 03/21/17 08:04 03/21/17 14:15 03/21/17 14:15 Intake and Output: 03/21/17 03/21/17 06:59 18:59 Intake Total 740 Balance 740 - Medications Medications: Current Medications Acetaminophen (Tylenol 325mg Tab) 650 mg PO Q6 PRN PRN Reason: Pain, moderate (4-7) Acetaminophen (Tylenol 325mg Tab) 975 mg PO Q8 [facility] Last Admin: 03/21/17 14:09 Dose: Not Given Amlodipine Besylate (Norvasc) 2.5 mg PO DAILY [facility] Last Admin: 03/21/17 10:21 Dose: 2.5 mg Clopidogrel Bisulfate (Plavix) 75 mg PO DAILY [facility] Last Admin: 03/21/17 10:14 Dose: 75 mg Clotrimazole (Lotrimin 1%) 0 gm TOP BID [facility] Last Admin: 03/21/17 10:22 Dose: 1 applic Glipizide (Glucotrol) 10 mg PO BID [facility] Last Admin: 03/21/17 10:14 Dose: Not Given Heparin Sodium (Porcine) (Heparin) 5,000 units SC Q8 [facility] Last Admin: 03/21/17 14:13 Dose: 5,000 units Insulin Aspart (Novolog) 0 unit SC ACHS [facility] PRN Reason: Protocol Last Admin: 03/21/17 12:07 Dose: 4 unit Insulin Human Isoph/Insulin Regular (Novolin 70/30 (70/30 Units/Ml) 10 Ml) 20 units SC HS [facility] Last Admin: 03/20/17 21:51 Dose: 20 units Insulin Human Isoph/Insulin Regular (Novolin 70/30 (70/30 Units/Ml) 10 Ml) 25 units SC QAM [facility] Last Admin: 03/21/17 10:21 Dose: Not Given Losartan Potassium (Cozaar) 100 mg PO DAILY [facility] Last Admin: 03/21/17 10:13 Dose: 100 mg Morphine Sulfate (Morphine) 2 mg IV Q4H PRN PRN Reason: Pain, severe (8-10) Last Admin: 03/21/17 12:39 Dose: 2 mg Pantoprazole Sodium (Protonix Ec Tab) 40 mg PO DAILY [facility] Last Admin: 03/21/17 10:13 Dose: 40 mg Rosuvastatin Calcium (Crestor) 10 mg PO [facility] Sitagliptin Phosphate (Januvia) 50 mg PO DAILY [facility] Last Admin: 03/21/17 10:13 Dose: Not Given - Labs Labs: 03/20/17 13:42 03/20/17 13:42 PT 14.0 SECONDS (9.7-12.2) H 03/13/17 11:37 INR 1.2 03/13/17 11:37 APTT 34 SECONDS (21-34) 03/19/17 09:03 - Constitutional Appears: Well, No Acute Distress - Head Exam Head Exam: ATRAUMATIC - Extremities Exam Additional comments: swelling improving calves soft Nt neg homans +DP/PT pulses - Neurological Exam Neurological Exam: Alert, Awake, Oriented x3 Additional comments: still minimal effort due to pain, but improving - Psychiatric Exam Psychiatric exam: Normal Affect, Normal Mood - Skin Skin Exam: Dry, Intact, Normal Color, Warm Assessment and Plan (1) Swelling of right lower extremity Assessment & Plan: improving patient with significantly increased PT participation today, d/w PT orthopedically stable recommended placement to patient, refused VTE proph encourage PT/OOB d/w Dr. Navarro, agrees with above Status: Acute (2) Fall (on) (from) other stairs and steps, initial encounter Status: Acute (3) Leg pain, right Status: Acute
--- NOTE | 2017-03-22 01:12 | PN ---
DATE: 03/21/2017 SUBJECTIVE: The patient was seen and examined at bedside. The patient participated in physical therapy today, but still complaining of right leg pain, able to slightly move her right lower extremity. Able to walk few steps within the room with the help of two people as per the physical therapy. Denies any other new complaints. All other systems reviewed and were found to be negative. PHYSICAL EXAMINATION: GENERAL: Elderly male, sitting in chair, in no acute distress. VITAL SIGNS: Blood pressure 139/65, pulse 92, respirations 20, temperature 99.4 degrees Fahrenheit, O2 saturation 95% on room air. HEENT: Pupils equal, round, reacting to light and accommodation. Extraocular muscles intact. No icterus. No pallor. No oral thrush. No pharyngeal congestion. NECK: Supple. No JVD. LUNGS: Bilateral vesicular breath sounds. No wheezing. No rhonchi. CARDIOVASCULAR SYSTEM: S1 and S2 present, regular. ABDOMEN: Soft, nontender. Bowel sounds present. No guarding. No rigidity. No rebound tenderness noted. CENTRAL NERVOUS SYSTEM: Alert, awake, oriented x3. No focal deficits noted. EXTREMITIES: Right lower extremity tenderness present. Very limited movements at the hip and knee joint. MEDICATIONS: Include Tylenol as needed, Norvasc 2.5 mg p.o. daily, Plavix 75 mg p.o. daily, Lotrimin as needed, Glucotrol 10 mg p.o. b.i.d., heparin 5000 units subcu q. 8 hours, insulin 70/30 25 units in the morning and 20 units in the evening, Cozaar 100 mg daily, morphine 2 mg IV q. 4 hours p.r.n., Protonix 40 mg daily, Crestor 10 mg p.o. at bedtime, Januvia 50 mg p.o. daily. Accu-Cheks 203, 146, 96, 302, 266. ASSESSMENT AND PLAN: Elderly female with history of coronary artery disease, congestive heart failure, status post coronary artery bypass grafting, hypertension, diabetes mellitus, hyperlipidemia, osteoarthritis, status post fall with right lower extremity pain, multiple contusions, difficulty ambulation secondary to pain. The patient has been refusing to go to subacute rehab placement. I discussed with case management. Discussed with the patient's niece. The patient at present time refusing subacute rehab placement, encouraged the patient to get out of bed as much as possible. Case management referred to home care services. We will continue with aggressive bedside physical therapy. We will continue with other current medications. Simeon Proyr MD
[2017-03-22] MEDS: (Novolog) Insulin Aspart, Recombinant 100 u/ml 10 ml vial SC SCH ×4 (07:31→21:57)
[2017-03-22] MEDS: Pantoprazole 40 mg EC Tab PO SCH (10:27)
[2017-03-22] MEDS: (Novolin 70/30) NPH/Regular 70/30 Units/ml 10 ml vial SC SCH ×2 (10:28→21:58)
[2017-03-22] MEDS: Clotrimazole 1% Cream(30 gm) TOP SCH ×2 (10:28→18:07)
--- NOTE | 2017-03-22 11:18 | CP.PCM.PN ---
Subjective - Date & Time of Evaluation Date of Evaluation: 03/22/17 Time of Evaluation: 11:00 - Subjective Subjective: Progress note dictated #[id number] Objective - Vital Signs/Intake and Output Vital Signs (last 24 hours): Temp Pulse Resp BP Pulse Ox 99.3 F 89 20 128/62 97 03/22/17 08:00 03/22/17 08:00 03/22/17 08:00 03/22/17 08:00 03/22/17 08:00 Intake and Output: 03/22/17 03/22/17 06:59 18:59 Intake Total 350 Balance 350 - Medications Medications: Current Medications Acetaminophen (Tylenol 325mg Tab) 650 mg PO Q6 PRN PRN Reason: Pain, moderate (4-7) Acetaminophen (Tylenol 325mg Tab) 975 mg PO Q8 [facility] Last Admin: 03/22/17 06:48 Dose: Not Given Amlodipine Besylate (Norvasc) 2.5 mg PO DAILY [facility] Last Admin: 03/22/17 10:27 Dose: 2.5 mg Clopidogrel Bisulfate (Plavix) 75 mg PO DAILY [facility] Last Admin: 03/22/17 10:27 Dose: 75 mg Clotrimazole (Lotrimin 1%) 0 gm TOP BID [facility] Last Admin: 03/22/17 10:28 Dose: 1 applic Glipizide (Glucotrol) 10 mg PO BID [facility] Last Admin: 03/22/17 10:27 Dose: 10 mg Insulin Aspart (Novolog) 0 unit SC ACHS [facility] PRN Reason: Protocol Last Admin: 03/22/17 07:31 Dose: Not Given Insulin Human Isoph/Insulin Regular (Novolin 70/30 (70/30 Units/Ml) 10 Ml) 20 units SC HS [facility] Last Admin: 03/21/17 21:58 Dose: 20 units Insulin Human Isoph/Insulin Regular (Novolin 70/30 (70/30 Units/Ml) 10 Ml) 25 units SC QAM [facility] Last Admin: 03/22/17 10:28 Dose: 25 units Losartan Potassium (Cozaar) 100 mg PO DAILY [facility] Last Admin: 03/22/17 10:27 Dose: 100 mg Morphine Sulfate (Morphine) 2 mg IV Q4H PRN PRN Reason: Pain, severe (8-10) Last Admin: 03/22/17 06:25 Dose: 2 mg Pantoprazole Sodium (Protonix Ec Tab) 40 mg PO DAILY [facility] Last Admin: 03/22/17 10:27 Dose: 40 mg Rosuvastatin Calcium (Crestor) 10 mg PO HS [facility] Last Admin: 03/21/17 21:57 Dose: 10 mg Sitagliptin Phosphate (Januvia) 50 mg PO DAILY [facility] Last Admin: 03/22/17 10:27 Dose: 50 mg - Labs Labs: 03/20/17 13:42 03/20/17 13:42 PT 14.0 SECONDS (9.7-12.2) H 03/13/17 11:37 INR 1.2 03/13/17 11:37 APTT 34 SECONDS (21-34) 03/19/17 09:03
--- NOTE | 2017-03-22 23:47 | PN ---
DATE: 03/12/2017 SUBJECTIVE: The patient is seen and examined at bedside. The patient is still not able to get out of bed and not able to walk to the bathroom without assistance from 2 people. Denies any other new complaints and refusing to go to subacute rehab. PHYSICAL EXAMINATION: GENERAL: Elderly female, lying in bed, in no acute distress. VITAL SIGNS: Blood pressure 158/73, pulse 83, respirations 20, temperature 98.6 degrees Fahrenheit, O2 sats 96% on room air. HEENT: Pupils equal, round, reacting to light and accommodation. Extraocular muscles intact. No icterus. No pallor. No oral thrush. No pharyngeal congestion. NECK: Supple. No JVD. LUNGS: Bilateral vesicular breath sounds. No wheezing. No rhonchi. CARDIOVASCULAR SYSTEM: S1 and S2 present, regular. ABDOMEN: Soft, nontender. Bowel sounds present. No guarding. No rigidity. No rebound tenderness noted. CENTRAL NERVOUS SYSTEM: Alert, awake, oriented x3. No focal deficits noted. EXTREMITIES: Right lower extremity, tenderness at the left hip region and swelling present and very limited movements at the hip joint and knee joint. LABORATORY DATA: Accu-Chek 225, 171, 88, 292, 186. MEDICATIONS: Include Tylenol; Norvasc 2.5 mg p.o. daily; Plavix 75 mg p.o. daily; Glucotrol 10 mg p.o. b.i.d; heparin 5000 units subcu q. 8 hours; Novolin 70/30 at 25 units subcu q.a.m., 20 unit subcu at bedtime; losartan 100 mg p.o. daily; morphine sulfate 2 mg IV q. 4 hours p.r.n.; Protonix 40 mg daily; Crestor 10 mg p.o. at bedtime; Januvia 50 mg p.o. daily. ASSESSMENT AND PLAN: Elderly female with hypertension, hyperlipidemia, diabetes mellitus, osteoarthritis, coronary artery disease, congestive heart failure, status post coronary artery bypass graft, admitted for status post fall, right leg pain, right leg swelling and multiple contusions status post fall. The patient is unable to ambulate and requiring assistance to get out of bed and the patient is adamantly refusing to go to subacute rehab. Discussed with the patient's nephew regarding the patient's condition. The patient's nephew said he would talk to the patient regarding subacute rehab placement. I believe it is not a safe discharge at this time as the patient lives with a nephew go goes for dialysis 3 times a week and the patient will be left alone at home when the nephew is not home, but the patient is refusing subacute rehab placement. We will continue with physical therapy. We will follow up with the patient's family regarding subacute rehab placement. Her sugars are uncontrolled. We will continue with the current treatment. We will get Endocrine consult with . Simeon Pryor MD
[2017-03-23] MEDS: (Novolog) Insulin Aspart, Recombinant 100 u/ml 10 ml vial SC SCH ×2 (07:52→17:27)
[2017-03-23 08:23] LABS: BASO % 0.5 % (0.0-2.0); EOS # 0.5 K/uL (0.0-0.7); EOS % 7.1 % (0.0-4.0); HEMOGLOBIN 9.5 g/dL (11.0-16.0); LYMPH # 1.6 K/uL (1.0-4.3); LYMPH % 21.2 % (20.0-40.0); MEAN CELL VOLUME 79.4 fL (81.0-99.0); MEAN CORPUSCULAR HGB CONC 32.8 g/dL (33.0-37.0); MEAN PLATELET VOLUME 8.2 fL (7.2-11.7); MONO # 0.9 K/uL (0.0-0.8); MONO % 12.5 % (0.0-10.0); NEUT # 4.4 K/uL (1.8-7.0); NEUT % 58.7 % (50.0-75.0); RBC 3.67 Mil/uL (3.80-5.20); RED CELL DISTRIBUTION WIDTH 14.3 % (11.5-14.5); WHITE BLOOD COUNT 7.5 K/uL (4.8-10.8)
[2017-03-23 08:44] LABS: ALB/GLOB RATIO 0.9 (1.0-2.1); ALBUMIN 3.1 g/dL (3.5-5.0); ALT/SGPT 67 U/L (9-52); AST/SGOT 41 U/L (14-36); BLOOD UREA NITROGEN 16 mg/dL (7-17); CALCIUM 9.1 mg/dl (8.6-10.4); GFR AFRICAN-AMERICAN > 60; GFR NON-AFRICAN AMERICAN 60
[2017-03-23] MEDS ORDERED: (Novolog) Insulin Aspart, Recombinant 100 u/ml 10 ml vial SC STA (09:37)
[2017-03-23] MEDS ORDERED: (Novolin 70/30) NPH/Regular 70/30 Units/ml 10 ml vial SC STA (09:39)
[2017-03-23] MEDS ORDERED: (Novolog) Insulin Aspart, Recombinant 100 u/ml 10 ml vial SC ONE (11:05)
[2017-03-23] MEDS ORDERED: (Novolin 70/30) NPH/Regular 70/30 Units/ml 10 ml vial SC ONE (11:06)
[2017-03-23] MEDS: Clotrimazole 1% Cream(30 gm) TOP SCH ×2 (11:29→17:32)
[2017-03-23] MEDS: Pantoprazole 40 mg EC Tab PO SCH (11:29)
[2017-03-23] MEDS ORDERED: (Novolog) Insulin Aspart, Recombinant 100 u/ml 10 ml vial SC SCH (16:30)
--- NOTE | 2017-03-23 16:51 | CP.PCM.PN ---
Subjective - Date & Time of Evaluation Date of Evaluation: 03/23/17 Time of Evaluation: 16:50 - Subjective Subjective: Progress note dictated #[id number] Objective - Vital Signs/Intake and Output Vital Signs (last 24 hours): Temp Pulse Resp BP Pulse Ox 98.4 F 79 20 142/66 98 03/23/17 09:00 03/23/17 09:00 03/23/17 09:00 03/23/17 09:00 03/23/17 09:00 Intake and Output: 03/23/17 03/23/17 06:59 18:59 Intake Total 300 800 Balance 300 800 - Medications Medications: Current Medications Acetaminophen (Tylenol 325mg Tab) 650 mg PO Q6 PRN PRN Reason: Pain, moderate (4-7) Acetaminophen (Tylenol 325mg Tab) 975 mg PO Q8 [facility] Last Admin: 03/22/17 21:56 Dose: 975 mg Amlodipine Besylate (Norvasc) 2.5 mg PO DAILY [facility] Last Admin: 03/23/17 11:29 Dose: 2.5 mg Clopidogrel Bisulfate (Plavix) 75 mg PO DAILY [facility] Last Admin: 03/23/17 11:28 Dose: 75 mg Clotrimazole (Lotrimin 1%) 0 gm TOP BID [facility] Last Admin: 03/23/17 11:29 Dose: 1 applic Glipizide (Glucotrol) 10 mg PO BID [facility] Last Admin: 03/23/17 11:29 Dose: 10 mg Heparin Sodium (Porcine) (Heparin) 5,000 units SC Q8 [facility] Last Admin: 03/23/17 14:23 Dose: 5,000 units Insulin Aspart (Novolog) 15 unit SC ACB [facility] Insulin Aspart (Novolog) 15 unit SC ACD [facility] Insulin Human Isoph/Insulin Regular (Novolin 70/30 (70/30 Units/Ml) 10 Ml) 10 units SC ACB [facility] Insulin Human NPH (Novolin N) 8 unit SC HS [facility] Losartan Potassium (Cozaar) 100 mg PO DAILY [facility] Last Admin: 03/23/17 11:29 Dose: 100 mg Morphine Sulfate (Morphine) 2 mg IV Q4H PRN PRN Reason: Pain, severe (8-10) Last Admin: 03/23/17 16:02 Dose: 2 mg Pantoprazole Sodium (Protonix Ec Tab) 40 mg PO DAILY [facility] Last Admin: 03/23/17 11:29 Dose: 40 mg Rosuvastatin Calcium (Crestor) 10 mg PO HS [facility] Last Admin: 03/22/17 21:58 Dose: 10 mg Sitagliptin Phosphate (Januvia) 50 mg PO DAILY [facility] Last Admin: 03/23/17 11:29 Dose: 50 mg - Labs Labs: 03/23/17 08:06 03/23/17 08:06 PT 14.0 SECONDS (9.7-12.2) H 03/13/17 11:37 INR 1.2 03/13/17 11:37 APTT 38 SECONDS (21-34) H 03/23/17 08:06
[2017-03-23] MEDS: (Novolin N) Insulin Human Isophane (NPH) 100 u/ml 10 ml vial SC SCH (21:44)
[2017-03-23] MEDS ORDERED: (Novolin N) Insulin Human Isophane (NPH) 100 u/ml 10 ml vial SC SCH (22:00)
--- NOTE | 2017-03-23 23:03 | PN ---
DATE: 03/23/2017 SUBJECTIVE: Patient is seen and examined at bedside. Patient denies any new complaints. She is able to sit in a chair with the help of the people. Complaining of right leg pain while sitting up, requiring pain medication every 4 hours. Denies any other new complaints. OBJECTIVE: GENERAL: Elderly female, lying in bed, in no acute distress. VITAL SIGNS: Blood pressure 129/67, pulse 82, respirations 20, temperature 98.2 degrees Fahrenheit, O2 sats 99% on room air. HEENT: Pupils equal, round, reacting to light and accommodation. Extraocular muscles intact. No icterus. No pallor. No oral thrush. No pharyngeal congestion. NECK: Supple. No JVD. No thyromegaly. CHEST: Moving equally bilaterally on respiration. LUNGS: Bilateral vesicular breath sounds. No wheezing. No rhonchi. CARDIOVASCULAR: S1 and S2 present. Regular. ABDOMEN: Soft, nontender. Bowel sounds are present. No guarding. No rigidity. No rebound tenderness noted. CENTRAL NERVOUS SYSTEM: Alert, awake, and oriented x3. No focal deficits noted. EXTREMITIES: Right lower extremity swelling present, tenderness present. Very limited movement on the hip joint and the knee joint. MEDICATIONS: Include Tylenol, Norvasc 2.5 mg p.o. daily, Plavix 75 mg daily, Glucotrol 10 mg p.o. b.i.d., heparin 5000 units subcutaneous q.8 hours, Novolog 15 units subcutaneous dinner and subcutaneous with breakfast, 70/30 insulin 10 units with breakfast and 8 units of Novolin at night, losartan 100 mg p.o. daily, morphine 2 mg IV q.4 hours p.r.n., Protonix 40 mg daily, Crestor 10 mg p.o. at bedtime, Januvia 50 mg p.o. daily. LABORATORY DATA: From this morning, WBC 7.5, hemoglobin 9.5, hematocrit 29.1, platelets 266. PTT 38. Sodium 130, potassium 4.4, chloride 94, bicarb 31, BUN 16, creatinine 0.9, glucose 285, 114, calcium 9.1, AST 41, ALT 67, alkaline phosphatase 219, total protein 6.6, albumin 3.1. ASSESSMENT AND PLAN: Elderly female with history of coronary artery disease, congestive heart failure, status post coronary artery bypass graft, hypertension, hyperlipidemia, osteoarthritis, diabetes mellitus, admitted for right leg pain - status post fall, inability to get out of bed, and requiring assistance with ADLs. On pain medications, participating with physical therapy, but adamantly refusing to go to subacute rehab. We will continue with bedside physical therapy. We will continue with pain medication. Endocrinology input appreciated. Her insulin regimen changed. We will monitor sugars closely. We will add further recommendation as her clinical course progresses. Simeon Pryor MD
[2017-03-24] MEDS ORDERED: (Novolin 70/30) NPH/Regular 70/30 Units/ml 10 ml vial SC SCH (07:30)
[2017-03-24] MEDS: (Novolog) Insulin Aspart, Recombinant 100 u/ml 10 ml vial SC SCH ×2 (07:43→16:30)
[2017-03-24] MEDS: (Novolin N) Insulin Human Isophane (NPH) 100 u/ml 10 ml vial SC SCH ×2 (07:43→21:46)
[2017-03-24] MEDS: Pantoprazole 40 mg EC Tab PO SCH (09:41)
[2017-03-24] MEDS: Clotrimazole 1% Cream(30 gm) TOP SCH ×2 (09:42→21:47)
--- NOTE | 2017-03-24 11:18 | CP.PCM.PN ---
Subjective - Date & Time of Evaluation Date of Evaluation: 03/24/17 Time of Evaluation: 11:20 - Subjective Subjective: Progress note dictated #[id number] Objective - Vital Signs/Intake and Output Vital Signs (last 24 hours): Temp Pulse Resp BP Pulse Ox 98.5 F 85 20 145/79 98 03/24/17 07:48 03/24/17 07:48 03/24/17 07:48 03/24/17 07:48 03/24/17 07:48 Intake and Output: 03/24/17 03/24/17 06:59 18:59 Intake Total 550 Balance 550 - Medications Medications: Current Medications Acetaminophen (Tylenol 325mg Tab) 650 mg PO Q6 PRN PRN Reason: Pain, moderate (4-7) Acetaminophen (Tylenol 325mg Tab) 975 mg PO Q8 [facility] Last Admin: 03/24/17 07:44 Dose: Not Given Amlodipine Besylate (Norvasc) 2.5 mg PO DAILY [facility] Last Admin: 03/24/17 09:41 Dose: 2.5 mg Clopidogrel Bisulfate (Plavix) 75 mg PO DAILY [facility] Last Admin: 03/24/17 09:41 Dose: 75 mg Clotrimazole (Lotrimin 1%) 0 gm TOP BID [facility] Last Admin: 03/24/17 09:42 Dose: 1 applic Glipizide (Glucotrol) 10 mg PO BID [facility] Last Admin: 03/24/17 09:41 Dose: 10 mg Heparin Sodium (Porcine) (Heparin) 5,000 units SC Q8 [facility] Last Admin: 03/24/17 05:54 Dose: 5,000 units Insulin Aspart (Novolog) 15 unit SC ACB [facility] Last Admin: 03/24/17 07:43 Dose: 15 unit Insulin Aspart (Novolog) 15 unit SC ACD [facility] Last Admin: 03/23/17 17:27 Dose: 15 unit Insulin Human NPH (Novolin N) 8 unit SC HS [facility] Last Admin: 03/23/17 21:44 Dose: 8 unit Insulin Human NPH (Novolin N) 10 unit SC ACB [facility] Last Admin: 03/24/17 07:43 Dose: 10 unit Losartan Potassium (Cozaar) 100 mg PO DAILY [facility] Last Admin: 03/24/17 09:41 Dose: 100 mg Pantoprazole Sodium (Protonix Ec Tab) 40 mg PO DAILY [facility] Last Admin: 03/24/17 09:41 Dose: 40 mg Rosuvastatin Calcium (Crestor) 10 mg PO HS [facility] Last Admin: 03/23/17 21:44 Dose: 10 mg Sitagliptin Phosphate (Januvia) 50 mg PO DAILY [facility] Last Admin: 03/24/17 09:41 Dose: 50 mg - Labs Labs: 03/23/17 08:06 03/23/17 08:06 PT 14.0 SECONDS (9.7-12.2) H 03/13/17 11:37 INR 1.2 03/13/17 11:37 APTT 38 SECONDS (21-34) H 03/23/17 08:06
[2017-03-24] MEDS ORDERED: (Novolog) Insulin Aspart, Recombinant 100 u/ml 10 ml vial SC SCH (11:30)
[2017-03-24] MEDS ORDERED: Tramadol 25 mg PO STA (12:57)
[2017-03-24] MEDS: Tramadol 25 mg PO SCH ×2 (13:00→17:53)
--- NOTE | 2017-03-24 15:22 | PN ---
DATE: 03/24/2017 SUBJECTIVE: Patient is seen and examined at bedside. Patient is sitting in chair, still complaining of right leg pain and right leg tightness. Denies any other neurologic symptoms. All other systems reviewed and were found to be negative. PHYSICAL EXAMINATION: GENERAL: Elderly female, sitting in chair, in no acute distress. VITAL SIGNS: Blood pressure 145/79, pulse 85, respirations 20, temperature 98.5 degrees Fahrenheit, O2 sats 98% on 2 L nasal cannula. HEENT: Pupils equal, round, reacting to light and accommodation. Extraocular muscles intact. No icterus. No pallor. NECK: Supple. No JVD. LUNGS: Bilateral vesicular breath sounds. No wheezing. No rhonchi. CARDIOVASCULAR SYSTEM: S1 and S2 present. Regular. ABDOMEN: Soft, nontender. Bowel sounds are present. No guarding. No rigidity. No rebound tenderness noted. CENTRAL NERVOUS SYSTEM: Alert, awake, and oriented x3. No focal deficits noted. EXTREMITIES: Right lower extremity tenderness noted. Hyperesthesias noted. Limited movements around the hip joint and the knee joint. Swelling present. MEDICATIONS: Include Norvasc 2.5 mg daily, Plavix 75 mg daily, Glucotrol 10 mg p.o. b.i.d., subcutaneous heparin 5000 units q. 8 hours, NovoLog 15 units subcutaneous breakfast and dinner, Novolin 8 units subcutaneous at bedtime, Novolin 10 units subcutaneous breakfast, losartan 100 mg p.o. daily, Protonix 40 mg daily, Crestor 10 mg p.o. at bedtime, and Januvia 50 mg daily. Accu-Cheks: 258, 183, 228, 245, 270. ASSESSMENT AND PLAN: Elderly female with history of hypertension, hyperlipidemia, diabetes mellitus, osteoarthritis, coronary artery disease, congestive heart failure, status post coronary artery bypass graft, admitted for right leg pain and difficulty ambulation, status post fall, requiring maximum assistance to get out of bed. The patient is adamantly refusing to go to subacute rehab. Sugars are uncontrolled. Her insulin regimen changed by Endocrinology. The patient is requesting morphine every 4 hours. I discussed with patient at length regarding pain management. I will start Ultram 25 mg p.o. t.i.d. and get morphine for breakthrough pain. The patient refusing to take Tylenol, ibuprofen, or naproxen claiming that she was told not to take any of those medications in the past. There was no documentation of any contraindication or side effects, but as per patient's request, we will start Ultram. We will restart her Lasix 40 mg p.o. daily. We will repeat labs in the morning. We will continue with physical therapy. Follow up with [facility]. Simeon Pryor MD
[2017-03-24] MEDS ORDERED: Tramadol 25 mg PO PRN (17:00)
[2017-03-24] MEDS ORDERED: (Novolog) Insulin Aspart, Recombinant 100 u/ml 10 ml vial SC ONE (22:30)
[2017-03-25 06:15] LABS: BASO # 0.1 K/uL (0.0-0.2); BASO % 0.8 % (0.0-2.0); EOS # 0.5 K/uL (0.0-0.7); EOS % 7.7 % (0.0-4.0); HEMOGLOBIN 9.6 g/dL (11.0-16.0); LYMPH # 1.8 K/uL (1.0-4.3); LYMPH % 26.1 % (20.0-40.0); MEAN CORPUSCULAR HEMOGLOBIN 26.1 pg (27.0-31.0); MONO # 0.7 K/uL (0.0-0.8); MONO % 9.7 % (0.0-10.0); NEUT # 3.8 K/uL (1.8-7.0); NEUT % 55.7 % (50.0-75.0); RBC 3.7 Mil/uL (3.80-5.20); RED CELL DISTRIBUTION WIDTH 14.7 % (11.5-14.5); WHITE BLOOD COUNT 6.8 K/uL (4.8-10.8)
[2017-03-25 06:46] LABS: ALB/GLOB RATIO 0.9 (1.0-2.1); ALBUMIN 3.3 g/dL (3.5-5.0); ALT/SGPT 63 U/L (9-52); AST/SGOT 60 U/L (14-36); BLOOD UREA NITROGEN 19 mg/dL (7-17); CALCIUM 9.3 mg/dl (8.6-10.4); GFR AFRICAN-AMERICAN > 60; GFR NON-AFRICAN AMERICAN 53
[2017-03-25] MEDS: (Novolin N) Insulin Human Isophane (NPH) 100 u/ml 10 ml vial SC SCH ×2 (08:21→21:18)
[2017-03-25] MEDS: (Novolog) Insulin Aspart, Recombinant 100 u/ml 10 ml vial SC SCH ×2 (08:21→17:52)
[2017-03-25] MEDS: Clotrimazole 1% Cream(30 gm) TOP SCH ×2 (10:05→17:51)
[2017-03-25] MEDS: Pantoprazole 40 mg EC Tab PO SCH (10:06)
[2017-03-25] MEDS: Tramadol 25 mg PO SCH ×3 (10:07→17:49)
--- NOTE | 2017-03-25 13:24 | CP.PCM.PN ---
Subjective - Date & Time of Evaluation Date of Evaluation: 03/25/17 Time of Evaluation: 13:30 - Subjective Subjective: Progress note dictated #[id number] Objective - Vital Signs/Intake and Output Vital Signs (last 24 hours): Temp Pulse Resp BP Pulse Ox 97.7 F 86 20 132/70 98 03/25/17 07:25 03/25/17 10:49 03/25/17 07:25 03/25/17 10:49 03/25/17 10:49 Intake and Output: 03/25/17 03/25/17 06:59 18:59 Intake Total 640 Balance 640 - Medications Medications: Current Medications Acetaminophen (Tylenol 325mg Tab) 650 mg PO Q6 PRN PRN Reason: Pain, moderate (4-7) Acetaminophen (Tylenol 325mg Tab) 975 mg PO Q8 [facility] Last Admin: 03/25/17 05:40 Dose: Not Given Amlodipine Besylate (Norvasc) 2.5 mg PO DAILY [facility] Last Admin: 03/25/17 10:08 Dose: 2.5 mg Clopidogrel Bisulfate (Plavix) 75 mg PO DAILY [facility] Last Admin: 03/25/17 10:08 Dose: 75 mg Clotrimazole (Lotrimin 1%) 0 gm TOP BID [facility] Last Admin: 03/25/17 10:05 Dose: 1 applic Furosemide (Lasix) 40 mg PO DAILY [facility] Last Admin: 03/25/17 10:08 Dose: 40 mg Glipizide (Glucotrol) 10 mg PO BID [facility] Last Admin: 03/25/17 10:07 Dose: 10 mg Heparin Sodium (Porcine) (Heparin) 5,000 units SC Q8 [facility] Last Admin: 03/25/17 05:17 Dose: 5,000 units Insulin Aspart (Novolog) 15 unit SC ACB [facility] Last Admin: 03/25/17 08:21 Dose: 15 unit Insulin Aspart (Novolog) 15 unit SC ACD [facility] Last Admin: 03/24/17 16:30 Dose: Not Given Insulin Human NPH (Novolin N) 8 unit SC HS [facility] Last Admin: 03/24/17 21:46 Dose: 8 unit Insulin Human NPH (Novolin N) 10 unit SC ACB [facility] Last Admin: 03/25/17 08:21 Dose: 10 unit Losartan Potassium (Cozaar) 100 mg PO DAILY [facility] Last Admin: 03/25/17 10:06 Dose: 100 mg Pantoprazole Sodium (Protonix Ec Tab) 40 mg PO DAILY [facility] Last Admin: 03/25/17 10:06 Dose: 40 mg Rosuvastatin Calcium (Crestor) 10 mg PO HS [facility] Last Admin: 03/24/17 21:44 Dose: 10 mg Sitagliptin Phosphate (Januvia) 50 mg PO DAILY [facility] Last Admin: 03/25/17 10:07 Dose: 50 mg Tramadol HCl (Ultram) 25 mg PO TID [facility] Last Admin: 03/25/17 10:07 Dose: 25 mg Tramadol HCl (Ultram) 25 mg PO Q8H [facility] Last Admin: 03/25/17 01:26 Dose: 25 mg - Labs Labs: 03/25/17 06:05 03/25/17 06:05 PT 14.0 SECONDS (9.7-12.2) H 03/13/17 11:37 INR 1.2 03/13/17 11:37 APTT 38 SECONDS (21-34) H 03/23/17 08:06
--- NOTE | 2017-03-25 14:11 | CP.PCM.PN ---
Subjective - Date & Time of Evaluation Date of Evaluation: 03/25/17 Time of Evaluation: 14:08 - Subjective Subjective: Patient states she is still having a lot of pain in her right leg, but that she is able to transfer herself and can tolerate being in chair now for several hours. No new complaints. Denies numbness/tingling/cp/sob/n/v/swelling. Review of Systems - Review of Systems All systems: reviewed and no additional remarkable complaints except - Cardiovascular Cardiovascular: As Per HPI - Respiratory Respiratory: As Per HPI - Gastrointestinal Gastrointestinal: As Per HPI - Musculoskeletal Musculoskeletal: As Par HPI - Integumentary Integumentary: As Per HPI - Neurological Neurological: As Per HPI - Hematologic/Lymphatic Hematologic: UNREMARKABLE Objective - Vital Signs/Intake and Output Vital Signs (last 24 hours): Temp Pulse Resp BP Pulse Ox 97.7 F 86 20 132/70 98 03/25/17 07:25 03/25/17 10:49 03/25/17 07:25 03/25/17 10:49 03/25/17 10:49 Intake and Output: 03/25/17 03/25/17 06:59 18:59 Intake Total 640 Balance 640 - Medications Medications: Current Medications Acetaminophen (Tylenol 325mg Tab) 650 mg PO Q6 PRN PRN Reason: Pain, moderate (4-7) Acetaminophen (Tylenol 325mg Tab) 975 mg PO Q8 [facility] Last Admin: 03/25/17 13:49 Dose: Not Given Amlodipine Besylate (Norvasc) 2.5 mg PO DAILY [facility] Last Admin: 03/25/17 10:08 Dose: 2.5 mg Clopidogrel Bisulfate (Plavix) 75 mg PO DAILY [facility] Last Admin: 03/25/17 10:08 Dose: 75 mg Clotrimazole (Lotrimin 1%) 0 gm TOP BID [facility] Last Admin: 03/25/17 10:05 Dose: 1 applic Furosemide (Lasix) 40 mg PO DAILY [facility] Last Admin: 03/25/17 10:08 Dose: 40 mg Glipizide (Glucotrol) 10 mg PO BID [facility] Last Admin: 03/25/17 10:07 Dose: 10 mg Insulin Aspart (Novolog) 15 unit SC ACB [facility] Last Admin: 03/25/17 08:21 Dose: 15 unit Insulin Aspart (Novolog) 15 unit SC ACD [facility] Last Admin: 03/24/17 16:30 Dose: Not Given Insulin Human NPH (Novolin N) 8 unit SC HS [facility] Last Admin: 03/24/17 21:46 Dose: 8 unit Insulin Human NPH (Novolin N) 10 unit SC ACB [facility] Last Admin: 03/25/17 08:21 Dose: 10 unit Losartan Potassium (Cozaar) 100 mg PO DAILY [facility] Last Admin: 03/25/17 10:06 Dose: 100 mg Pantoprazole Sodium (Protonix Ec Tab) 40 mg PO DAILY [facility] Last Admin: 03/25/17 10:06 Dose: 40 mg Rosuvastatin Calcium (Crestor) 10 mg PO HS [facility] Last Admin: 03/24/17 21:44 Dose: 10 mg Sitagliptin Phosphate (Januvia) 50 mg PO DAILY [facility] Last Admin: 03/25/17 10:07 Dose: 50 mg Tramadol HCl (Ultram) 25 mg PO TID [facility] Last Admin: 03/25/17 13:44 Dose: 25 mg Tramadol HCl (Ultram) 25 mg PO Q8H [facility] Last Admin: 03/25/17 01:26 Dose: 25 mg - Labs Labs: 03/25/17 06:05 03/25/17 06:05 PT 14.0 SECONDS (9.7-12.2) H 03/13/17 11:37 INR 1.2 03/13/17 11:37 APTT 38 SECONDS (21-34) H 03/23/17 08:06 - Constitutional Appears: Well, No Acute Distress - Head Exam Head Exam: ATRAUMATIC - Respiratory Exam Respiratory Exam: NORMAL BREATHING PATTERN - Extremities Exam Additional comments: swelling improving. still generalized TTP to right leg, but much improved. sensation itnact, calves soft NT neg homans - Neurological Exam Neurological Exam: Alert, Awake, Oriented x3 Neuro motor strength exam: Right Lower Extremity: 4 (improving. Still complains of pain, but NAD at rest and ROM improving with much less pain) - Psychiatric Exam Psychiatric exam: Normal Affect, Normal Mood - Skin Skin Exam: Dry, Intact, Normal Color, Warm Assessment and Plan (1) Swelling of right lower extremity Assessment & Plan: improving PT notes appreciated, pt ambulating at this point encourage OOB encourage participation in PT orthopedically stable for d/c f/u Dr. Navarro prn in office Status: Acute (2) Fall (on) (from) other stairs and steps, initial encounter Status: Acute (3) Leg pain, right Status: Acute
[2017-03-25] MEDS ORDERED: Oxycodone/Acetaminophen 5/325 mg Tab PO PRN (19:24)
--- NOTE | 2017-03-25 22:09 | PN ---
DATE: 03/25/2017 SUBJECTIVE: The patient was seen and examined at the bedside. The patient is still complaining of pain, but sitting in chair, participating in physical therapy using a walker with minimal weightbearing on the right foot. Requesting for morphine, claiming that Ultram is not helping. Denies any new complaints. PHYSICAL EXAMINATION: GENERAL: Elderly female, sitting in chair, in no acute distress. VITAL SIGNS: Blood pressure 112/68, pulse 83, respirations 20, temperature 97.6 degrees Fahrenheit, O2 sats 99% on room air. HEENT: Pupils equal, round, reacting to light and accommodation. Extraocular muscles intact. No icterus. No pallor. No oral thrush. No pharyngeal congestion. NECK: Supple. No JVD. LUNGS: Bilateral vesicular breath sounds. No wheezing. No rhonchi. CARDIOVASCULAR SYSTEM: S1 and S2 present, regular. ABDOMEN: Soft, nontender. Bowel sounds present. No guarding. No rigidity. No rebound tenderness noted. CENTRAL NERVOUS SYSTEM: Alert, awake, oriented x3. No focal deficits noted. EXTREMITIES: Right leg extremity limited movement, the hip and the knee joint. Swelling present. Tenderness present. LABORATORY DATA: Labs from this morning, WBC 6.8, hemoglobin 9.6, hematocrit 29.2, platelets 315. Sodium 129, potassium 4.1, chloride 93, bicarb 30, BUN 19, creatinine 1.0, glucose 184, calcium 9.3, total bilirubin 0.9, AST 60, ALT 63, alkaline phosphatase 230, total protein 6.9, albumin 3.3. MEDICATIONS: Include Norvasc 2.5 mg daily, Plavix 75 mg daily, Lasix 40 mg p.o. daily, Glucotrol 10 mg p.o. b.i.d., insulin NovoLog 15 units subcu breakfast and dinner, Novolin 8 units subcu at bedtime and 10 units with breakfast, losartan 100 mg daily, morphine 2 mg IV q. 6 hours p.r.n., Percocet 1 tab p.o. q. 4 p.r.n., Protonix 40 mg daily, Crestor 10 mg p.o. at bedtime, Januvia 50 mg daily. ASSESSMENT AND PLAN: Elderly female with history of coronary artery disease; congestive heart failure, status post coronary artery bypass graft; hypertension; hyperlipidemia; diabetes mellitus; status post fall with right leg pain, multiple contusions, unable to ambulate. We will continue with physical therapy. Accu-Cheks are high. Her insulin regimen adjusted by Endocrinology. Orthopedic followup appreciated. Follow up with Case Management and Social Service for discharge planning. We will continue with physical therapy and we will continue with other current medication. Simeon Pryor MD
[2017-03-26] MEDS: Morphine 4 MG/ML VIAL IV PRN ×4 (00:40→20:23)
[2017-03-26 07:57] LABS: BASO # 0.1 K/uL (0.0-0.2); BASO % 1.1 % (0.0-2.0); EOS # 0.6 K/uL (0.0-0.7); EOS % 8.9 % (0.0-4.0); HEMOGLOBIN 9.9 g/dL (11.0-16.0); LYMPH # 1.7 K/uL (1.0-4.3); LYMPH % 24.7 % (20.0-40.0); MEAN CELL VOLUME 79.9 fL (81.0-99.0); MEAN CORPUSCULAR HEMOGLOBIN 26.1 pg (27.0-31.0); MEAN CORPUSCULAR HGB CONC 32.7 g/dL (33.0-37.0); MONO # 0.7 K/uL (0.0-0.8); MONO % 10.1 % (0.0-10.0); NEUT # 3.7 K/uL (1.8-7.0); NEUT % 55.2 % (50.0-75.0); RBC 3.78 Mil/uL (3.80-5.20); RED CELL DISTRIBUTION WIDTH 14.3 % (11.5-14.5); WHITE BLOOD COUNT 6.8 K/uL (4.8-10.8)
[2017-03-26 08:24] LABS: ALB/GLOB RATIO 0.9 (1.0-2.1); ALBUMIN 3.3 g/dL (3.5-5.0); ALT/SGPT 84 U/L (9-52); AST/SGOT 84 U/L (14-36); BLOOD UREA NITROGEN 17 mg/dL (7-17); CALCIUM 9.3 mg/dl (8.6-10.4); GFR AFRICAN-AMERICAN > 60; GFR NON-AFRICAN AMERICAN 53
[2017-03-26] MEDS: (Novolog) Insulin Aspart, Recombinant 100 u/ml 10 ml vial SC SCH ×2 (09:22→18:04)
[2017-03-26] MEDS: (Novolin N) Insulin Human Isophane (NPH) 100 u/ml 10 ml vial SC SCH ×2 (09:23→22:01)
[2017-03-26] MEDS: Pantoprazole 40 mg EC Tab PO SCH (09:24)
[2017-03-26] MEDS: Clotrimazole 1% Cream(30 gm) TOP SCH ×2 (09:35→18:06)
--- NOTE | 2017-03-26 10:52 | CP.PCM.PN ---
Subjective - Date & Time of Evaluation Date of Evaluation: 03/26/17 Time of Evaluation: 11:15 - Subjective Subjective: Progress note dictated # [id number] Objective - Vital Signs/Intake and Output Vital Signs (last 24 hours): Temp Pulse Resp BP Pulse Ox 97.6 F 83 20 132/75 96 03/26/17 07:57 03/26/17 07:57 03/26/17 07:57 03/26/17 09:24 03/26/17 07:57 Intake and Output: 03/26/17 03/26/17 06:59 18:59 Intake Total 600 Balance 600 - Medications Medications: Current Medications Acetaminophen (Tylenol 325mg Tab) 650 mg PO Q6 PRN PRN Reason: Pain, moderate (4-7) Acetaminophen (Tylenol 325mg Tab) 975 mg PO Q8 [facility] Last Admin: 03/26/17 06:00 Dose: Not Given Amlodipine Besylate (Norvasc) 2.5 mg PO DAILY [facility] Last Admin: 03/26/17 09:23 Dose: 2.5 mg Clopidogrel Bisulfate (Plavix) 75 mg PO DAILY [facility] Last Admin: 03/26/17 09:24 Dose: 75 mg Clotrimazole (Lotrimin 1%) 0 gm TOP BID [facility] Last Admin: 03/26/17 09:35 Dose: 1 applic Furosemide (Lasix) 40 mg PO DAILY [facility] Last Admin: 03/26/17 09:24 Dose: 40 mg Glipizide (Glucotrol) 10 mg PO BID [facility] Last Admin: 03/26/17 09:23 Dose: 10 mg Insulin Aspart (Novolog) 15 unit SC ACB [facility] Last Admin: 03/26/17 09:22 Dose: 15 unit Insulin Aspart (Novolog) 15 unit SC ACD [facility] Last Admin: 03/25/17 17:52 Dose: 15 unit Insulin Human NPH (Novolin N) 8 unit SC HS [facility] Last Admin: 03/25/17 21:18 Dose: 8 unit Insulin Human NPH (Novolin N) 10 unit SC ACB [facility] Last Admin: 03/26/17 09:23 Dose: 10 unit Losartan Potassium (Cozaar) 100 mg PO DAILY [facility] Last Admin: 03/26/17 09:23 Dose: 100 mg Morphine Sulfate (Morphine) 2 mg IV Q6 PRN PRN Reason: Pain, severe (8-10) Last Admin: 03/26/17 00:40 Dose: 2 mg Oxycodone/Acetaminophen (Percocet 5/325 Mg Tab) 1 tab PO Q6H PRN PRN Reason: Pain, moderate (4-7) Stop: 03/28/17 19:25 Last Admin: 03/25/17 21:14 Dose: 1 tab Pantoprazole Sodium (Protonix Ec Tab) 40 mg PO DAILY [facility] Last Admin: 03/26/17 09:24 Dose: 40 mg Rosuvastatin Calcium (Crestor) 10 mg PO HS [facility] Last Admin: 03/25/17 21:27 Dose: 10 mg Sitagliptin Phosphate (Januvia) 50 mg PO DAILY [facility] Last Admin: 03/26/17 09:24 Dose: 50 mg - Labs Labs: 03/26/17 07:45 03/26/17 07:45 PT 14.0 SECONDS (9.7-12.2) H 03/13/17 11:37 INR 1.2 03/13/17 11:37 APTT 38 SECONDS (21-34) H 03/23/17 08:06
[2017-03-27] MEDS: Morphine 4 MG/ML VIAL IV PRN ×4 (03:20→21:19)
--- NOTE | 2017-03-27 03:35 | PN ---
DATE: 03/26/2017 SUBJECTIVE: The patient was seen and examined at bedside this morning. The patient has been participating in therapy. After physical therapy is almost done, the patient claims that she felt very nauseous, had two episodes of vomiting which was bilious. No blood noted. When I examined, the patient was feeling better, but complaining of not having any appetite. Denies any headache. Denies any dizziness. Denies any chest pain, shortness of breath or wheezing. Denies any urinary complaints. Denies any leg pains or leg cramps. Denies any other complaints other than right leg pain and difficulty ambulation. PHYSICAL EXAMINATION: GENERAL: An elderly female sitting in chair in no acute distress.. VITAL SIGNS: Blood pressure 134/66, pulse 99, respirations 20, temperature 97.9 degrees Fahrenheit, and O2 sats 95% on room air. HEENT: Pupils are equal, round, and reacting to light and accommodation. Extraocular muscles are intact. No icterus. No pallor. No oral thrush. No pharyngeal congestion. NECK: Supple. No JVD. LUNGS: Bilateral vesicular breath sounds. No wheezing. No rhonchi. CARDIOVASCULAR: S1 and S2 present, regular. ABDOMEN: Soft and nontender. Bowel sounds present. No guarding. No rigidity. No rebound tenderness noted. CENTRAL NERVOUS SYSTEM: Alert, awake, oriented x3. No focal deficits noted. EXTREMITIES: Right leg limited movement and swelling present. MEDICATIONS: Include Norvasc 2.5 mg daily, Plavix 75 mg daily, Lasix 40 mg daily, Glucotrol 10 mg p.o. b.i.d., Novolog 15 units in the morning and 15 units at dinner, NPH 8 units at night and 10 units with breakfast, losartan 100 mg daily, morphine 2 mg IV q. 6 p.r.n., Zofran 4 mg IV push q. 6 p.r.n., Percocet one tab p.o. q. 6 p.r.n., Protonix 40 mg daily, Crestor 10 mg p.o. at bedtime, Januvia 50 mg p.o. daily. LABORATORY DATA: Labs from this morning, WBC 6.8, hemoglobin 9.9, hematocrit 30.2, platelets 322. Sodium 132, potassium 4.4, chloride 95, bicarb 32, BUN 17, creatinine 1.0, glucose 210, calcium 9.3, total bilirubin 0.8, AST 84, ALT 84, alkaline phosphatase 222, total protein 6.8, albumin 3.3. ASSESSMENT AND PLAN: Elderly female with hypertension, diabetes mellitus, hyperlipidemia, osteoarthritis, coronary artery disease, congestive heart failure, status post coronary artery bypass grafting, admitted for right leg pain. Unable to ambulate status post fall, requiring maximum assistance for ambulation but participating with physical therapy, it is likely improving, able to walk from bed to the bathroom with walker and with physical therapy. The patient is adamantly refusing to go to subacute rehab. The patient has nephew living in the same building, not with her as per the other nephew, and that nephew goes for dialysis three times a week as per the patient. The patient will be left alone if discharged home. There is no else at home, and the patient is refusing adamantly for any kind of subacute rehab placement. It will be an unsafe discharge if the patient is not able to ambulate without assistance, but the patient is participating and slowly improving in her movement at the hip joint right side status post episode of vomiting, questionable etiology. The patient is currently asymptomatic. We will monitor the patient closely, give Zofran as needed. We will continue with physical therapy and OT. We will follow up with [employer] and Case Management and Physical Therapy for discharge planning. Simeon Pryor MD
[2017-03-27] MEDS: (Novolin N) Insulin Human Isophane (NPH) 100 u/ml 10 ml vial SC SCH ×2 (08:53→21:21)
[2017-03-27] MEDS: (Novolog) Insulin Aspart, Recombinant 100 u/ml 10 ml vial SC SCH ×2 (08:54→17:47)
[2017-03-27] MEDS: Pantoprazole 40 mg EC Tab PO SCH (09:24)
[2017-03-27] MEDS: Clotrimazole 1% Cream(30 gm) TOP SCH ×2 (09:30→17:42)
--- NOTE | 2017-03-27 11:18 | CP.PCM.PN ---
Subjective - Date & Time of Evaluation Date of Evaluation: 03/27/17 Time of Evaluation: 11:15 - Subjective Subjective: Progress note dictated #[id number] Objective - Vital Signs/Intake and Output Vital Signs (last 24 hours): Temp Pulse Resp BP Pulse Ox 97.7 F 84 20 110/72 96 03/27/17 08:30 03/27/17 08:30 03/27/17 08:30 03/27/17 09:24 03/27/17 08:30 Intake and Output: 03/27/17 03/27/17 06:59 18:59 Intake Total 350 Balance 350 - Medications Medications: Current Medications Acetaminophen (Tylenol 325mg Tab) 650 mg PO Q6 PRN PRN Reason: Pain, moderate (4-7) Acetaminophen (Tylenol 325mg Tab) 975 mg PO Q8 [facility] Last Admin: 03/27/17 05:26 Dose: Not Given Amlodipine Besylate (Norvasc) 2.5 mg PO DAILY [facility] Last Admin: 03/27/17 09:24 Dose: 2.5 mg Clopidogrel Bisulfate (Plavix) 75 mg PO DAILY [facility] Last Admin: 03/27/17 09:25 Dose: 75 mg Clotrimazole (Lotrimin 1%) 0 gm TOP BID [facility] Last Admin: 03/27/17 09:30 Dose: 1 applic Furosemide (Lasix) 40 mg PO DAILY [facility] Last Admin: 03/27/17 09:24 Dose: 40 mg Glipizide (Glucotrol) 10 mg PO BID [facility] Last Admin: 03/27/17 09:24 Dose: 10 mg Insulin Aspart (Novolog) 15 unit SC ACB [facility] Last Admin: 03/27/17 08:54 Dose: Not Given Insulin Aspart (Novolog) 15 unit SC ACD [facility] Last Admin: 03/26/17 18:04 Dose: Not Given Insulin Human NPH (Novolin N) 8 unit SC HS [facility] Last Admin: 03/26/17 22:01 Dose: 8 unit Insulin Human NPH (Novolin N) 10 unit SC ACB [facility] Last Admin: 03/27/17 08:53 Dose: 10 unit Losartan Potassium (Cozaar) 100 mg PO DAILY [facility] Last Admin: 03/27/17 09:25 Dose: 100 mg Morphine Sulfate (Morphine) 2 mg IV Q6 PRN PRN Reason: Pain, severe (8-10) Last Admin: 03/27/17 09:23 Dose: 2 mg Ondansetron HCl (Zofran Inj) 4 mg IVP Q6 PRN PRN Reason: Nausea/Vomiting Last Admin: 03/26/17 17:29 Dose: 4 mg Oxycodone/Acetaminophen (Percocet 5/325 Mg Tab) 1 tab PO Q6H PRN PRN Reason: Pain, moderate (4-7) Stop: 03/28/17 19:25 Last Admin: 03/25/17 21:14 Dose: 1 tab Pantoprazole Sodium (Protonix Ec Tab) 40 mg PO DAILY [facility] Last Admin: 03/27/17 09:24 Dose: 40 mg Rosuvastatin Calcium (Crestor) 10 mg PO HS [facility] Last Admin: 03/26/17 22:04 Dose: 10 mg Sitagliptin Phosphate (Januvia) 50 mg PO DAILY [facility] Last Admin: 03/27/17 09:25 Dose: 50 mg - Labs Labs: 03/26/17 07:45 03/26/17 07:45 PT 14.0 SECONDS (9.7-12.2) H 03/13/17 11:37 INR 1.2 03/13/17 11:37 APTT 38 SECONDS (21-34) H 03/23/17 08:06
[2017-03-27] MEDS: Lidocaine 5% Patch TD SCH (12:20)
--- NOTE | 2017-03-28 00:30 | PN ---
DATE: 03/27/2017 SUBJECTIVE: Patient was seen and examined at bedside. Patient is feeling much better. Participating with physical therapy, able to ambulate with a walker, but requiring pain medications every 6 hours, on IV morphine. Denies any other complaints. Nausea improved from yesterday. PHYSICAL EXAMINATION GENERAL: Elderly female, lying in bed, in no acute distress. VITAL SIGNS: Blood pressure 127/69, pulse 92, respirations 20, temperature 98.2 degrees Fahrenheit, and O2 saturation 99% on nasal cannula. HEENT: Pupils are equal, round, and reacting to light and accommodation. Extraocular muscles are intact. No icterus. No pallor. No oral thrush. No pharyngeal congestion. NECK: Supple. No JVD. LUNGS: Bilateral vesicular breath sounds. No wheezing. No rhonchi. CARDIOVASCULAR: S1 and S2 present, regular. ABDOMEN: Soft and nontender. Bowel sounds present. No guarding. No rigidity. No rebound tenderness noted. CENTRAL NERVOUS SYSTEM: Alert, awake, oriented x3. No focal deficits noted. EXTREMITIES: Right leg swelling present. Limited movements around the hip joint. Tenderness improved. MEDICATIONS: Include Norvasc 2.5 mg daily, Plavix 75 mg daily, Lasix 40 mg daily, glipizide 10 mg p.o. b.i.d., [id number] units subcu at breakfast and dinner, Novolin 15 units with breakfast and 8 units at bedtime, Cozaar 100 mg p.o daily, morphine 2 mg IV q. 6 p.r.n., Zofran as needed, Percocet one tab p.o. q. 6 p.r.n., Protonix 40 mg daily, Crestor 10 mg p.o. at bedtime, Januvia 50 mg daily. LABORATORY DATA: Accu-Chek 129, 113, 75, 168, 235. ASSESSMENT AND PLAN: Elderly female with history of hypertension, hyperlipidemia, diabetes mellitus,osteoarthritis, coronary artery disease, congestive heart failure, status post coronary artery bypass grafting, admitted for right leg pain, swelling, and inability to move, status post fall. Patient is able to walk with a walker with assistance of the physical therapy. Physical therapy cleared the patient for discharging home. Patient is still requiring IV morphine. Discussed with patient to switch to p.o. Percocet. Will continue with current medications. Lidoderm patches ordered. As per RN, Lidoderm patches were not approved. I advised patient to use the pain medication as needed at home. As there is no family member available to pick her up, we will discharge patient home in a.m. Discussed the same with patient's nephew. Simeon Pryor MD
[2017-03-28] MEDS: Morphine 4 MG/ML VIAL IV PRN ×2 (03:20→11:04)
[2017-03-28 08:40] VITALS: BP 136/66; PULSE 89; TEMP 97.9; O2SAT 96
[2017-03-28] MEDS: (Novolin N) Insulin Human Isophane (NPH) 100 u/ml 10 ml vial SC SCH (08:42)
[2017-03-28] MEDS: (Novolog) Insulin Aspart, Recombinant 100 u/ml 10 ml vial SC SCH (08:44)
--- NOTE | 2017-03-28 10:56 | CP.PCM.PN ---
Subjective - Date & Time of Evaluation Date of Evaluation: 03/28/17 Time of Evaluation: 10:45 Objective - Vital Signs/Intake and Output Vital Signs (last 24 hours): Temp Pulse Resp BP Pulse Ox 97.9 F 89 20 136/66 96 03/28/17 08:24 03/28/17 08:24 03/28/17 08:24 03/28/17 08:24 03/28/17 08:24 Intake and Output: 03/28/17 03/28/17 06:59 18:59 Intake Total 250 Balance 250 - Medications Medications: Current Medications Acetaminophen (Tylenol 325mg Tab) 975 mg PO Q8 [facility] Last Admin: 03/28/17 06:00 Dose: Not Given Clotrimazole (Lotrimin 1%) 0 gm TOP BID [facility] Last Admin: 03/27/17 17:42 Dose: 1 applic Furosemide (Lasix) 40 mg PO DAILY [facility] Last Admin: 03/27/17 09:24 Dose: 40 mg Glipizide (Glucotrol) 10 mg PO BID [facility] Last Admin: 03/27/17 17:43 Dose: 10 mg Insulin Aspart (Novolog) 15 unit SC ACB [facility] Last Admin: 03/28/17 08:44 Dose: Not Given Insulin Aspart (Novolog) 15 unit SC ACD [facility] Last Admin: 03/27/17 17:47 Dose: 15 unit Insulin Human NPH (Novolin N) 8 unit SC HS [facility] Last Admin: 03/27/17 21:21 Dose: 8 unit Insulin Human NPH (Novolin N) 10 unit SC ACB [facility] Last Admin: 03/28/17 08:42 Dose: 10 unit Lidocaine (Lidoderm) 1 ea TD DAILY [facility] Last Admin: 03/27/17 12:20 Dose: 1 ea Morphine Sulfate (Morphine) 2 mg IV Q6 PRN PRN Reason: Pain, severe (8-10) Last Admin: 03/28/17 03:20 Dose: 2 mg Ondansetron HCl (Zofran Inj) 4 mg IVP Q6 PRN PRN Reason: Nausea/Vomiting Last Admin: 03/26/17 17:29 Dose: 4 mg Oxycodone/Acetaminophen (Percocet 5/325 Mg Tab) 1 tab PO Q6H PRN PRN Reason: Pain, moderate (4-7) Stop: 03/28/17 19:25 Last Admin: 03/25/17 21:14 Dose: 1 tab Rosuvastatin Calcium (Crestor) 10 mg PO HS [facility] Last Admin: 03/27/17 21:19 Dose: 10 mg Sitagliptin Phosphate (Januvia) 50 mg PO DAILY [facility] Last Admin: 03/27/17 09:25 Dose: 50 mg - Labs Labs: 03/26/17 07:45 03/26/17 07:45 PT 14.0 SECONDS (9.7-12.2) H 03/13/17 11:37 INR 1.2 03/13/17 11:37 APTT 38 SECONDS (21-34) H 03/23/17 08:06
[2017-03-28] MEDS: Lidocaine 5% Patch TD SCH (10:58)
[2017-03-28] MEDS: Clotrimazole 1% Cream(30 gm) TOP SCH (10:58)
[2017-03-28] MEDS: Pantoprazole 40 mg EC Tab PO SCH (11:41)
== END 2017-03-28 13:18 | disposition home or self-care (01) | DRG 558 ==
LOC: C.ER 17:27 → C.9E 22:28 → C.3T 23:11 → OBSVTOIN 03-14 12:30 → C.3T 03-18 22:30
PROVIDERS: ADMIT Internal Medicine; ATTEND Internal Medicine
DX: M70.61 Trochanteric bursitis, right hip (principal); M62.82 Rhabdomyolysis; E22.2 Syndrome of inappropriate secretion of antidiuretic hormone; I13.0 Hypertensive heart and chronic kidney disease with heart failure and stage 1 through stage 4 chronic kidney disease, or unspecified chronic kidney disease; E11.22 Type 2 diabetes mellitus with diabetic chronic kidney disease; E11.65 Type 2 diabetes mellitus with hyperglycemia; I50.9 Heart failure, unspecified; W10.9XXA Fall (on) (from) unspecified stairs and steps, initial encounter; E86.0 Dehydration; I25.10 Atherosclerotic heart disease of native coronary artery without angina pectoris; Z95.1 Presence of aortocoronary bypass graft; E78.00 Pure hypercholesterolemia, unspecified; Z86.718 Personal history of other venous thrombosis and embolism; J44.9 Chronic obstructive pulmonary disease, unspecified; Z90.49 Acquired absence of other specified parts of digestive tract; Z87.891 Personal history of nicotine dependence; Z88.2 Allergy status to sulfonamides; N18.9 Chronic kidney disease, unspecified; Z79.4 Long term (current) use of insulin; M51.36 Other intervertebral disc degeneration, lumbar region; M79.89 Other specified soft tissue disorders

== ENCOUNTER 2017-08-16 15:53 | Emergency (ER) | payer MEDICARE ==
[2017-08-16 16:11] VITALS: RESP 18; TEMP 98.6; BMI 27.3
[2017-08-16 16:54] LABS: BASO # 0.1 K/uL (0.0-0.2); BASO % 0.8 % (0.0-2.0); EOS # 0.4 K/uL (0.0-0.7); EOS % 4.7 % (0.0-4.0); HEMOGLOBIN 11.5 g/dL (11.0-16.0); LYMPH # 1.6 K/uL (1.0-4.3); LYMPH % 20.8 % (20.0-40.0); MEAN CELL VOLUME 77.1 fL (81.0-99.0); MEAN CORPUSCULAR HEMOGLOBIN 24.8 pg (27.0-31.0); MEAN CORPUSCULAR HGB CONC 32.2 g/dL (33.0-37.0); MEAN PLATELET VOLUME 7.9 fL (7.2-11.7); MONO # 0.6 K/uL (0.0-0.8); MONO % 8.1 % (0.0-10.0); NEUT % 65.6 % (50.0-75.0); NRBC % 0.1 % (0.0-2.0); RBC 4.64 Mil/uL (3.80-5.20); RED CELL DISTRIBUTION WIDTH 15.6 % (11.5-14.5); WHITE BLOOD COUNT 7.6 K/uL (4.8-10.8)
[2017-08-16 17:11] LABS: ALB/GLOB RATIO 1.2 (1.0-2.1); ALBUMIN 4.4 g/dL (3.5-5.0); CALCIUM 9.8 mg/dl (8.6-10.4)
--- NOTE | 2017-08-16 18:09 | RAD ---
PROCEDURE: CHEST RADIOGRAPH, 1 VIEW HISTORY: Diabetic COMPARISON: 04/20/2015 FINDINGS: LUNGS: Clear. PLEURA: No pneumothorax or pleural fluid seen. CARDIOVASCULAR: No radiographic findings to suggest acute or significant cardiovascular disease. Incidental Finding(s): Postoperative changes related to sternotomy. OSSEOUS STRUCTURES: No significant abnormalities. VISUALIZED UPPER ABDOMEN: Normal. OTHER FINDINGS: None. IMPRESSION: No active disease. No acute/significant interval changes.
--- NOTE | 2017-08-16 18:16 | C.PDOC ---
History Of Present Illness 82 year old female presents to the ED for evaluation of low blood sugar noted earlier today. Patient states she ate a banana this morning and then went to see her PMD for evaluation. On her way back from the visit, patient began feeling lightheaded. She also reports she had a headache and her skin began to get clammy. Patient then recalls being on the sidewalk. Patient currently states "I feel fine." She denies any complaints at this time. Time Seen by Provider: 08/16/17 16:23 Chief Complaint (Nursing): Medical Clearance History Per: Patient History/Exam Limitations: no limitations Onset/Duration Of Symptoms: Hrs Current Symptoms Are (Timing): Gone Additional History Per: Patient Past Medical History Reviewed: Historical Data, Nursing Documentation, Vital Signs Vital Signs: Last Vital Signs Temp 98.6 F 08/16/17 16:09 Pulse 82 08/16/17 16:09 Resp 18 08/16/17 16:09 BP 143/78 08/16/17 16:09 Pulse Ox 97 08/16/17 18:23 - Medical History PMH: Arthritis (L HIP; L WR/HAND), CAD, Diabetes, Deep Vein Thrombosis, HTN, Hypercholesterolemia Denies: Chronic Kidney Disease Surgical History: CABG (10 yrs ago), Coronary Stent - [facility] Procedures VACCINATION NEC (08/11/13) Family History: States: Unknown Family Hx - Social History Hx Tobacco Use: No Hx Alcohol Use: No Hx Substance Use: No - Immunization History Hx Tetanus Toxoid Vaccination: Yes Hx Influenza Vaccination: Yes Hx Pneumococcal Vaccination: Yes Review Of Systems Constitutional: Positive for: Other (low blood sugar ) Physical Exam - Physical Exam Appears: Non-toxic, No Acute Distress Skin: Normal Color, Warm, Dry Head: Atraumatic, Normacephalic Eye(s): bilateral: Normal Inspection Oral Mucosa: Moist Neck: Supple Chest: Symmetrical, No Deformity, No Tenderness Cardiovascular: Rhythm Regular, No Murmur Respiratory: Normal Breath Sounds, No Rales, No Rhonchi, No Wheezing Extremity: Normal ROM, Capillary Refill (less than 2 seconds ) Neurological/Psych: Oriented x3, Normal Speech, Normal Cognition ED Course And Treatment - Laboratory Results Result Diagrams: 08/16/17 16:51 08/16/17 16:51 O2 Sat by Pulse Oximetry: 97 (on RA) Pulse Ox Interpretation: Normal Medical Decision Making Medical Decision Making: Progress: Bloodwork, CXR, and EKG ordered and reviewed. Disposition - Disposition Referrals: [facility] [Outside] Disposition: HOME/ ROUTINE Disposition Time: 18:38 Condition: GOOD Additional Instructions: Follow up with the medical doctor within 1-2 days. return if worsened. Instructions: Low Blood Sugar, Adult (DC) Forms: [employer] ([place]) - Clinical Impression Clinical Impression: Hypoglycemia - PA / HEAD WAITRESS / Resident Statement MD/DO has reviewed & agrees with the documentation as recorded. - Scribe Statement The provider has reviewed the documentation as recorded by the Scribe (Bernadette Crawford) All medical record entries made by the Scribe were at my direction and personally dictated by me. I have reviewed the chart and agree that the record accurately reflects my personal performance of the history, physical exam, medical decision making, and the department course for this patient. I have also personally directed, reviewed, and agree with the discharge instructions and disposition.
[2017-08-16 19:23] VITALS: BP 114/70; PULSE 74; O2SAT 98
== END 2017-08-16 19:22 | disposition home or self-care (01) ==
LOC: C.ER 15:53
DX: E11.649 Type 2 diabetes mellitus with hypoglycemia without coma (principal); E78.00 Pure hypercholesterolemia, unspecified; I10 Essential (primary) hypertension; I25.10 Atherosclerotic heart disease of native coronary artery without angina pectoris